=== PATIENT | female | born 1945 | race American Indian/Alaskan Native ===

== ENCOUNTER 2018-11-23 15:22 | Inpatient (IN) ==
--- NOTE | 2018-11-23 15:59 | Emergency Department Note ---
Weakness HPI - General Chief complaint: Weakness Stated complaint: fatigue, low H&H Time Seen by Provider: 11/23/18 15:32 Source: patient, EMS Mode of arrival: ambulatory Limitations: no limitations - History of Present Illness HPI Narrative: Recent episode of generalized weakness, history of right breast CA was seen in the office today and referred to the ED secondary to low blood pressure. Blood pressure was noted be 80 systolic in the office of. Now 125 in triage. She states she generally feels weak, notably a blood panel today revealed a hemo globin of 5.8. Most recently on November 02 her hemoglobin was 9.8. She does tell me that she been weak and tired ever since Wednesday. She thought it would get better. She does remember about of diarrhea on Wednesday where she had 2 or 3 loose stools but then that seemed to resolve it. Her stools have been dark ever since she has been iron which has been for quite some time. Does have a history of GI bleed in the past, she's had several colonoscopies as well as EGDs and they haven't been able to locate a source of the bleeding. She does take aspirin 81 mg a day. She also does recall that she had Hemoccult testing done on outpatient basis which was positive on at least one occasion. Had a tra nsfusion 2 months ago and her post transfusion hemoglobin was 9.8. In August her hemoglobin was 11.3. She denies chest pain, history of coronary disease, status post open heart surgery 18 years ago. She also had mitral valve repair at that time. MD Complaint: generalized weakness - Related Data Home Medications Medication Instructions Recorded Confirmed aspirin 81 mg tablet,delayed 81 mg PO QDAY 07/30/16 11/29/17 release blood sugar diagnostic strips See Dose Instructions .ROUTE 07/30/16 11/29/17 .MEDSUPPLY digoxin 250 mcg tablet 125 mcg PO .QAD tab 07/30/16 11/29/17 diltiazem ER 180 mg capsule,24 180 mg PO QPM cap 07/30/16 11/29/17 hr,extended release ferrous sulfate 325 mg (65 mg 325 mg PO BID 07/30/16 11/29/17 iron) tablet furosemide 20 mg tablet 20 mg PO QDAY 07/30/16 11/29/17 losartan 100 mg tablet 100 mg PO QDAY 07/30/16 11/29/17 omega-3 fatty acids 1,000 mg 1,000 mg PO BID cap 07/30/16 11/29/17 capsule rosuvastatin 10 mg tablet 5 mg PO 3XW tab 07/30/16 11/29/17 sotalol 80 mg tablet 80 mg PO BID tab 07/30/16 11/29/17 cefuroxime axetil 250 mg tablet 250 mg PO Q12H 10/20/16 11/29/17 cholecalciferol (vitamin D3) 1,000 1,000 unit PO .QOD cap 10/20/16 11/29/17 unit capsule cyanocobalamin (vit B-12) 1,000 1,000 mcg PO QDAY 10/20/16 11/29/17 mcg tablet gemfibrozil 600 mg tablet 600 mg PO BID 30 Days #60 tab 10/20/16 11/29/17 lactobacillus combination no.8 3 3,000 mmu cells PO QDAY 10/20/16 11/29/17 billion cell capsule magnesium oxide 500 mg tablet 500 mg PO QDAY 10/20/16 11/29/17 multivitamin,zj-xzsg-bhmmxkvf 1 tab PO QDAY 10/20/16 11/29/17 tablet digoxin 250 mcg tablet 250 mcg PO .QAD tab 05/27/17 11/29/17 ascorbic acid (vitamin C) 500 mg 500 mg PO BID tab 11/29/17 11/29/17 tablet glipizide 5 mg tablet 10 mg PO QDAY 11/29/17 11/29/17 metformin 500 mg tablet 1,000 mg PO TID tab 11/29/17 11/29/17 omeprazole 20 mg capsule,delayed 20 mg PO ONCE cap 11/29/17 11/29/17 release Allergies Allergy/AdvReac Type Severity Reaction Status Date / Time codeine Allergy Unknown RESP Verified 11/23/18 15:28 DISTRESS dofetilide [From Tikosyn] Allergy Unknown unknown Verified 11/23/18 15:28 gabapentin Allergy Unknown unknown Verified 11/23/18 15:28 hydrocodone [HYDROCODONE] Allergy Unknown PT NOT Verified 11/23/18 15:28 SURE OF REACTIONS simvastatin Allergy Unknown Verified 11/23/18 15:28 No to Iodine Allergy Unknown Unknown Uncoded 11/29/17 14:39 No to Latex Allergy Unknown Unknown Uncoded 11/29/17 14:39 From LIPITOR AdvReac Unknown JOINT AND Uncoded 11/29/17 14:39 MUSCLE ACHES From TOPROL XL AdvReac Unknown DIZZY AND Uncoded 11/29/17 14:39 SYNCOPE Review of Systems Constitutional: Denies: fever, chills Eyes: Denies: eye pain ENT ED: Denies: ear pain, throat pain, dental pain Cardiovascular: Reports: dyspnea on exertion. 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 IV fluids. Her abdominal exam is benign, no acute tenderness, suspicion for acute perforated ulcer is low. Stool was heme positive. Last hemoglobin November 02 was 9.8. I believe she is slowly bleeding to the point where she is weak at this time. She also takes carvedilol and her hypotension was resolved on admission. We will start her on blood transfusion, packed red blood cells ordered for her. Consult with hospitalist as well as water filterer. At this point she will need to be admitted for GI bleed. Vital Signs Temperature 97.1 F 11/23/18 15:23 Pulse Rate 81 11/23/18 15:23 Respiratory Rate 16 11/23/18 15:23 Blood Pressure 122/56 11/23/18 15:23 Pulse Oximetry (%) 100 11/23/18 15:23 Temperature 97.1 F 11/23/18 15:23 Pulse Rate 81 11/23/18 15:23 Respiratory Rate 16 11/23/18 15:23 Blood Pressure 122/56 11/23/18 15:23 Pulse Oximetry (%) 100 11/23/18 15:23 Weakness - MDM Narrative Medical decision making narrative: Impression his GI bleed. Plan is consult with hospitalist, water filterer. - Lab Data Lab results reviewed: Yes I reviewed the patient's lab results. Result diagrams: 11/23/18 16:12 11/23/18 16:12 Lab Results 11/23/18 11/23/18 Range/Units 16:12 16:15 WBC 7.4 (4.5-11.0) K/mcL RBC 2.22 L (4.00-5.20) M/mcL Hgb 5.8 L* (12.0-15.0) g/dL Hct 18.1 L* (36.0-48.0) % MCV 81.6 (80.0-100.0) fL MCH 26.0 (26.0-34.0) pg MCHC 31.8 (31.0-36.0) g/dL RDW 16.7 H (11.5-14.5) % Plt Count 313 (140-440) K/mcL MPV 7.6 (7.4-10.4) fL Gran % 78.8 H (38.0-78.0) % Lymph % (Auto) 15.2 L (15.5-49.0) % [place] % (Auto) 4.8 (1.0-12.0) % Eos % (Auto) 1.1 (0.0-7.0) % Baso % (Auto) 0.1 (0.0-2.0) % Gran # 5.8 (1.8-8.0) K/mcL Lymph # (Auto) 1.1 L (1.5-4.8) K/mcL [place] # (Auto) 0.4 (0.1-0.9) K/mcL Eos # (Auto) 0.1 (0.0-0.7) K/mcL Baso # (Auto) 0 (0.0-0.3) K/mcL POC PT 14.1 (11.9-14.5) sec POC INR 1.2 (0.9-1.2) Disposition Pt seen by MACHINIST FIRST CLASS/PA only: No Clinical Impression: Gastrointestinal bleeding Disposition: Xfer As Inpt ([facility]) Condition: Fair Referrals: Sandra Leger MD [Primary Care Provider] -
[2018-11-23] MEDS ORDERED: ONDANSETRON 4 MG/2 ML VIAL IV ONE (16:06)
[2018-11-23] MEDS ORDERED: PANTOPRAZOLE 40 MG VIAL IV ONE ×2 (16:06→16:30)
[2018-11-23] MEDS ORDERED: PANTOPRAZOLE 80 MG in 0.9 % SODIUM CHLORIDE 100 ML IV SCH (16:15)
[2018-11-23] MEDS ORDERED: LACTATED RINGERS 1,000 ML IV SCH (16:15)
[2018-11-23] MEDS ORDERED: 0.9 % SODIUM CHLORIDE 250 ML IV SCH ×2 (16:15→18:47)
[2018-11-23] MEDS ORDERED: ESOMEPRAZOLE 80 MG in 0.9 % SODIUM CHLORIDE 50 ML IV SCH (16:30)
[2018-11-23 16:32] LABS: POC INR 1.2 (0.9-1.2); POC Pro Time 14.1 sec (11.9-14.5)
[2018-11-23 16:43] LABS: Basophils # (Auto) 0 K/mcL (0.0-0.3); Basophils % (Auto) 0.1 % (0.0-2.0); Eosinophils # (Auto) 0.1 K/mcL (0.0-0.7); Eosinophils % (Auto) 1.1 % (0.0-7.0); Granulocytes % (Auto) 78.8 % (38.0-78.0); Hematocrit 18.1 % (36.0-48.0); Hemoglobin 5.8 g/dL (12.0-15.0); Lymphocytes # (Auto) 1.1 K/mcL (1.5-4.8); Lymphocytes % (Auto) 15.2 % (15.5-49.0); Mean Cell Volume 81.6 fL (80.0-100.0); Mean Corpuscular HGB Conc 31.8 g/dL (31.0-36.0); Mean Platelet Volume 7.6 fL (7.4-10.4); Monocytes # (Auto) 0.4 K/mcL (0.1-0.9); Monocytes % (Auto) 4.8 % (1.0-12.0); Platelet Count 313 K/mcL (140-440); RBC 2.22 M/mcL (4.00-5.20); Red Cell Distribution Width 16.7 % (11.5-14.5); WBC 7.4 K/mcL (4.5-11.0)
[2018-11-23 17:00] LABS: ALT/SGPT 7 U/l (0-40); AST/SGOT 12 U/l (0-37); Albumin 4.1 gm/dL (3.2-5.2); Albumin/Globulin Ratio 1.4 (1.0-2.3); Alkaline Phosphatase 52 U/L (39-117); Bilirubin,Total 0.3 mg/dL (0.0-1.0); Blood Urea Nitrogen 49 mg/dl (8-23); Calcium 9.8 mg/dl (8.6-10.4); Carbon Dioxide 22 mmol/L (22-30); Chloride 91 mmol/L (96-108); Glomerular Filtration Rate 64; Glucose 144 mg/dL (70-105); Potassium 4.6 mmol/L (3.3-5.1); Sodium 130 mmol/L (133-145)
--- NOTE | 2018-11-23 18:09 | Internal Med History&Physical ---
Medical - H&P: HPI Patient information: Note initiated : 11/23/18 at 6:04 pm Service Date, if different from initiated Date: [] Patient: Shahnaz Rutledge a 73 y/o F admitted on for fatigue, low H&H. Chief Complaint: [] History of present illness: Ms. Rutledge is a 73 year old F with multiple medical issues, history of GI bleed and diagnosed presents to the emergency room after being sent here from the [facility] for evaluation of fatigue, hypertension and low hemoglobin. The patient had presented to the clinic for her routine blood work for a clinic appointment next week. It was noted that her hemoglobin was low at that appointment I believe 5.8, her blood pressure was 80 systolic and therefore she was sent here to the emergency room for urgent evaluation. The patient notes that she has been feeling tired and fatigued for the last 4 days. She denies any other complaints, she has intermittent abdominal pain which is not able to describe well. The patient denies any headache, denies any changes in vision, has been dizzy intermittently over the last few days, denies any difficulty in swallowing chest pain palpitations acute abdominal pain nausea vomiting diarrhea. She admits to having chronically dark stools as she is on iron supplements she also notes that her occult studies are always positive. The patient has had blood transfusions in the past for a low hemoglobin her last transfusion I believe was last month. The patient notes that she has been worked up in the past for her upper GI bleed. She describes a colonoscopy, endoscopy x2, endoscopy that went more inside which I believe most of been a push enteroscopy, as well as a pill cam, and they were unable to find any source of bleed She is very apprehensive about undergoing the procedure again. 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) Colon polyposis (Chronic) Mitral regurgitation (Chronic) Atrial fibrillation (Chronic) Type 2 diabetes mellitus (Chronic) Congestive heart failure (Chronic) Hyperlipidemia (Chronic) Abnormal mammogram (Chronic) Osteopenia (Chronic) History of endocarditis (Chronic) Eustachian tube dysfunction (Chronic) Benign essential hypertension (Chronic) Acute and subacute endocarditis, unspecified (Chronic) Carcinoma of female breast (Chronic) Anemia (Chronic) Cardiac pacemaker in situ (Chronic) Lymphocytopenia (Chronic) Chest pain (Chronic) Cardiac arrhythmia (Chronic) Surgical history: Past Surgical History History of breast biopsy (Chronic 03/14/03) History of cardiac radiofrequency ablation (Chronic 02/14/02) History of colonoscopy (Chronic 04/25/12) History of local excision of skin lesion (Chronic 10/21/09) History of lumpectomy (Chronic 04/02/03) History of mitral valve repair (Chronic 02/14/02) Status post laser cataract surgery (Chronic 06/15/14) Status post placement of cardiac pacemaker (Chronic 02/21/07) Status post tendon repair (Chronic 10/09/99) Family history: reviewed and not pertinent Medical - H&P: Meds Home Medications Medication Instructions Recorded Confirmed Type aspirin 81 mg tablet,delayed 81 mg PO QDAY 07/30/16 11/23/18 History release blood sugar diagnostic strips See Dose Instructions .ROUTE 07/30/16 11/29/17 History .MEDSUPPLY digoxin 250 mcg tablet 125 mcg PO .QAD tab 07/30/16 11/23/18 History diltiazem ER 180 mg capsule,24 180 mg PO QPM cap 07/30/16 11/23/18 History hr,extended release ferrous sulfate 325 mg (65 mg 325 mg PO BID 07/30/16 11/23/18 History iron) tablet furosemide 20 mg tablet 20 mg PO QDAY 07/30/16 11/23/18 History losartan 100 mg tablet 100 mg PO QDAY 07/30/16 11/23/18 History omega-3 fatty acids 1,000 mg 1,000 mg PO BID cap 07/30/16 11/23/18 History capsule rosuvastatin 10 mg tablet 5 mg PO 3XW tab 07/30/16 11/23/18 History cefuroxime axetil 250 mg tablet 250 mg PO Q12H 10/20/16 11/23/18 History cholecalciferol (vitamin D3) 1,000 1,000 unit PO .QOD cap 10/20/16 11/23/18 History unit capsule cyanocobalamin (vit B-12) 1,000 1,000 mcg PO QDAY 10/20/16 11/23/18 History mcg tablet gemfibrozil 600 mg tablet 600 mg PO BID 30 Days #60 tab 10/20/16 11/23/18 History lactobacillus combination no.8 3 3,000 mmu cells PO QDAY 10/20/16 11/29/17 History billion cell capsule magnesium oxide 500 mg tablet 500 mg PO QDAY 10/20/16 11/23/18 History multivitamin,er-xgbo-fwfcowld 1 tab PO QDAY 10/20/16 11/23/18 History tablet digoxin 250 mcg tablet 250 mcg PO .QAD tab 05/27/17 11/23/18 History ascorbic acid (vitamin C) 500 mg 500 mg PO BID tab 11/29/17 11/23/18 History tablet metformin 500 mg tablet 500 mg PO TID tab 11/29/17 11/23/18 History omeprazole 20 mg capsule,delayed 20 mg PO ONCE cap 11/29/17 11/29/17 History release Carvedilol [Coreg] 6.25 mg PO BID 11/23/18 11/23/18 History Metoprolol Tartrate [Lopressor] 25 mg PO BID 11/23/18 11/23/18 History Allergies Allergy/AdvReac Type Severity Reaction Status Date / Time codeine Allergy Unknown RESP Verified 11/23/18 15:28 DISTRESS dofetilide [From Tikosyn] Allergy Unknown unknown Verified 11/23/18 15:28 gabapentin Allergy Unknown unknown Verified 11/23/18 15:28 hydrocodone [HYDROCODONE] Allergy Unknown PT NOT Verified 11/23/18 15:28 SURE OF REACTIONS simvastatin Allergy Unknown Verified 11/23/18 15:28 No to Iodine Allergy Unknown Unknown Uncoded 11/29/17 14:39 No to Latex Allergy Unknown Unknown Uncoded 11/29/17 14:39 From LIPITOR AdvReac Unknown JOINT AND Uncoded 11/29/17 14:39 MUSCLE ACHES From TOPROL XL AdvReac Unknown DIZZY AND Uncoded 11/29/17 14:39 SYNCOPE Medical - H&P: Exam - Constitutional Vitals: Temp Pulse Resp BP Pulse Ox 97.1 F 81 16 122/56 100 11/23/18 15:23 11/23/18 15:23 11/23/18 15:23 11/23/18 15:23 11/23/18 15:23 Exam: GENERAL: The patient is a well-developed, well-nourished in no apparent distress. Is alert and oriented x3. VITAL SIGNS: Reviewed and as noted elsewhere. HEENT: Head is normocephalic and atraumatic. Extraocular muscles are intact. Pupils are equal, round, and reactive to light. Nares appeared normal. Mouth appears any without lesions. Mucous membranes are moist. NECK: Normal to inspection, Supple, No lymphadenopathy or thyromegaly. LUNGS: Air entry equal on both sides, no wheezing, crackles or rhonchi noted. No accessory muscles of respiration HEART: Regular rate, irregular rhythm, systolic murmur mitral region. ABDOMEN: Soft, nontender, and nondistended. Positive bowel sounds. No hepatosplenomegaly was noted. EXTREMITIES: No cyanosis, clubbing, rash, lesions or edema. NEUROLOGIC: Cranial nerves II through XII are grossly intact. Motor and Sensory System Grossly Intact PSYCHIATRIC: Normal affect, Normal Mood. Appropriate Behavior. SKIN: No ulceration or wounds noted, No jaundice, No rash noted. Medical - H&P: Reslt - Labs CBC & Chem 7: 11/23/18 16:12 11/23/18 16:12 Labs: Short CBC 11/23/18 Range/Units 16:12 WBC 7.4 (4.5-11.0) K/mcL Hgb 5.8 L* (12.0-15.0) g/dL Hct 18.1 L* (36.0-48.0) % Plt Count 313 (140-440) K/mcL BMP 11/23/18 16:12 Sodium 130 L Potassium 4.6 Chloride 91 L Carbon Dioxide 22 BUN 49 H Creatinine 0.9 Glucose 144 H Calcium 9.8 Liver Function 11/23/18 Range/Units 16:12 Total Bilirubin 0.3 (0.0-1.0) mg/dL AST 12 (0-37) U/l ALT 7 (0-40) U/l Alkaline Phosphatase 52 (39-117) U/L Albumin 4.1 (3.2-5.2) gm/dL Medical - H&P: A/P - Narrative A/P Narrative: A/P Acute Upper GI bleed, -Likeliy upper gi source, on ASA 81 for CVA prophylaxis, h/o AFib, does nto take PPI (omeprazole made her stomach worse? ) -GI consulted from ER, -pt Presently hemodyamically stable, but low bp on presentation is concerning, -elevated bun also is concerning -Monitor on PCU status. Acute blood loss Anemia -Transfuse 2 units, trend Hb Atrial fibrillation -On ASA, not on anticoagulation -follows with Dr Krishnamurthy, at [facility] -on multiple meds for rate control, cardizem? coreg? diltazem? will hold for now, HTN -on multiple BP meds -hold for now h/o CA breast -Right side, s/p mastectomy, LN dissection HLD S/p MItral valve repair DM not on insulin -hold oral meds, ssi insulin for glucose control Full code SCD NPO MN, Social History - Social History marital status: - Tobacco smoking status: Former smoker - Alcohol alcohol intake frequency: does not drink
[2018-11-23] MEDS ORDERED: NALOXONE HCL 0.4 MG/ML VIAL IV PRN (18:47)
[2018-11-23] MEDS ORDERED: ONDANSETRON 4 MG/2 ML VIAL IV PRN (18:47)
[2018-11-23] MEDS ORDERED: DEXTROSE 50% 50 ML VIAL IV PRN (18:47)
[2018-11-23] MEDS ORDERED: DEXTROSE 31 GM ORAL.SUSP PO PRN (18:47)
[2018-11-23] MEDS: 0.9 % SODIUM CHLORIDE 250 ML IV SCH (19:00)
[2018-11-23] MEDS: LACTATED RINGERS 1,000 ML IV SCH (21:42)
[2018-11-23] MEDS: GEMFIBROZIL 600 MG TABLET PO SCH (21:44)
[2018-11-23] MEDS: 0.9 % SODIUM CHLORIDE 10 ML SYRINGE IV SCH (21:44)
[2018-11-23] MEDS: INSULIN LISPRO 1 UNIT/0.01 ML UNIT SQ SCH ×2 (21:44→21:57)
[2018-11-24] MEDS ORDERED: PANTOPRAZOLE 40 MG VIAL IV ONE (02:29)
[2018-11-24 02:43] LABS: Hematocrit 23.2 % (36.0-48.0); Hemoglobin 7.5 g/dL (12.0-15.0)
[2018-11-24] MEDS ORDERED: 0.9 % SODIUM CHLORIDE 250 ML IV SCH (03:45)
[2018-11-24] MEDS: 0.9 % SODIUM CHLORIDE 250 ML IV SCH (04:00)
[2018-11-24] MEDS: PANTOPRAZOLE 80 MG in 0.9 % SODIUM CHLORIDE 100 ML IV SCH ×2 (04:22→15:12)
[2018-11-24] MEDS: 0.9 % SODIUM CHLORIDE 10 ML SYRINGE IV SCH ×2 (05:36→13:34)
[2018-11-24] MEDS: INSULIN LISPRO 1 UNIT/0.01 ML UNIT SQ SCH ×4 (07:16→20:36)
[2018-11-24] MEDS ORDERED: DEXTROSE 5%-LR 1,000 ML IV SCH ×2 (08:40→15:14)
[2018-11-24] MEDS: LACTATED RINGERS 1,000 ML IV SCH (08:54)
--- NOTE | 2018-11-24 09:44 | Internal Med Progress Note ---
Medical - PN: Subj Patient information: Note initiated : 11/24/18 at 9:42 am Service Date, if different from initiated Date: [] Patient: Shahnaz Rutledge a 73 y/o F admitted on 11/23/18 for Fatigue, Low H&H. Chief Complaint: [] Interval history: Ms. Rutledge is a 73 year old F with multiple medical issues, history of GI bleed and diagnosed presents to the emergency room after being sent here from the [facility] for evaluation of fatigue, hypertension and low hemoglobin. The patient had presented to the clinic for her routine blood work for a clinic appointment next week. It was noted that her hemoglobin was low at that appointment I believe 5.8, her blood pressure was 80 systolic and therefore she was sent here to the emergency room for urgent evaluation. The patient notes that she has been feeling tired and fatigued for the last 4 days. She denies any other complaints, she has intermittent abdominal pain which is not able to describe well. The patient denies any headache, denies any changes in vision, has been dizzy intermittently over the last few days, denies any difficulty in swallowing chest pain palpitations acute abdominal pain nausea vomiting diarrhea. She admits to having chronically dark stools as she is on iron supplements she also notes that her occult studies are always positive. The patient has had blood transfusions in the past for a low hemoglobin her last transfusion I believe was last month. The patient notes that she has been worked up in the past for her upper GI bleed. She describes a colonoscopy, endoscopy x2, endoscopy that went more inside which I believe most of been a push enteroscopy, as well as a pill cam, and they were unable to find any source of bleed She is very apprehensive about undergoing the procedure again. 11/24 Patient seen and examined, no acute overnight events. Blood pressure stable has received 3 units of blood. Hemoglobin is rising appropriately. Patient remains on IV PPI GI to evaluate patient plan for endoscopy later today. Patient remains n.p.o. Pertinent ROS: Denies headache, dizziness Denies chest pain, palpitations Denies cough or shortness of breath Denies abdominal pain, nausea or vomiting. - Constitutional Vitals: Vital Signs Temp Pulse Resp BP Pulse Ox 98 F 64 17 136/70 99 11/24/18 06:57 11/24/18 09:00 11/24/18 09:00 11/24/18 09:00 11/24/18 09:00 Period Temp Pulse Resp BP Sys/Wade Pulse Ox Last 24 Hr 97.1 F-99.1 F 42-126 14-26 108-177/47-98 95-100 Intake and Output 11/23/18 11/24/18 11/24/18 21:59 05:59 13:59 Intake Total 7948 263 2458 Output Total 350 1400 450 Balance 719 -910 796 Weight 104 lb 11.2 oz Intake & Output: Intake & Output 11/23/18 11/24/18 11/24/18 21:59 05:59 13:59 Intake Total 7997 582 0331 Output Total 350 1400 450 Balance 719 -910 796 Weight 104 lb 11.2 oz Intake: IV 219 100 896 Sodium Chloride 0.9% 250 ml @ 100 20 mls/hr IV .[id number] [facility] Rx#: [id number] Lactated Ringers 1,000 ml @ 75 119 823 mls/hr IV .[id number] [facility] Rx#: [id number] Protonix 80 mg In Sodium 100 Chloride 0.9% 100 ml @ 8 MG/HR 10 mls/hr IV Q10H [facility] Rx#: [id number] Oral 200 390 Blood Product 650 350 Output: Void Amount 350 1400 450 Other: Urine Appearance Clear Urine Color Bright Yellow Urine Odor Normal Exam: Constitutional; Afebrile, cooperative, alert, not in distress. Respiratory system: Air Entry equal on both sides, No crackles or wheezing, no rhonchi. CVS- Rate rhythm regular, S1,S2 heard, no gallop, no rub. Abdomen- Soft nontender abdomen, no organomegaly, no tenderness, no guarding or rigidity, ORTHOPEDIC DESIGNER- AOOx3, moving all extremities, no gross focal deficit noted. Medical - PN: Obj Da - Labs CBC & Chem 7: 11/24/18 02:11 11/23/18 16:12 Labs: Abnormal Lab Results 11/24/18 11/23/18 11/23/18 02:11 16:12 16:12 RBC 2.22 L Hgb 7.5 L 5.8 L* Hct 23.2 L 18.1 L* RDW 16.7 H Gran % 78.8 H Lymph % (Auto) 15.2 L Lymph # (Auto) 1.1 L Sodium 130 L Chloride 91 L Anion Gap 17.0 H BUN 49 H Glucose 144 H Meds: Medications Dextrose (Dextrose 50%) 0 ml IV UD PRN PRN Reason: Hypoglycemia Diagnostic Test (Pha) (Accu-Chek) 1 each FS ACHS [facility] Last Admin: 11/24/18 07:16 Dose: 1 each Documented by: Gemfibrozil (Lopid) 600 mg PO BID [facility] Last Admin: 11/23/18 21:44 Dose: 600 mg Documented by: Glucose (Insta-Glucose) 15 gm PO PRN PRN PRN Reason: Hypoglycemia Pantoprazole Sodium 80 mg/ (Sodium Chloride) 100 mls @ 10 mls/hr IV Q10H [facility] Last Admin: 11/24/18 04:22 Dose: 8 mg/hr, 10 mls/hr Documented by: Sodium Chloride (Sodium Chloride 0.9%) 250 mls @ 20 mls/hr IV .[id number] [facility] Stop: 11/24/18 16:14 Last Admin: 11/24/18 04:28 Dose: Not Given Documented by: Dextrose/Lactated Ringer's (Dextrose 5%-Lactated Ringers) 1,000 mls @ 50 mls/hr IV .Q20H [facility] Last Admin: 11/24/18 08:40 Dose: 50 mls/hr Documented by: Insulin Human Lispro (Humalog) 0 unit SQ [facility]; Protocol Last Admin: 11/24/18 07:16 Dose: Not Given Documented by: Naloxone HCl (Narcan) 0.1 mg IV Q2MIN PRN PRN Reason: Opiate Reversal Ondansetron HCl (Zofran) 4 mg IV Q4-6HP PRN PRN Reason: Nausea And Vomiting Sodium Chloride (Saline Flush) 10 ml IV Q8 [facility] Last Admin: 11/24/18 05:36 Dose: Not Given Documented by: Medical - PN: A/P - Time Spent With Patient Total time spent is greater than 50% in coordination of care (as documented) at patient's floor/unit and/or counseling patient: - Narrative A/P Narrative: A/P Acute Upper GI bleed, -Likeliy upper gi source, on ASA 81 for CVA prophylaxis, h/o AFib, does nto take PPI (omeprazole made her stomach worse? ) -GI consulted from ER, -pt Presently hemodynamically stable, but low bp on presentation is chio rning, -elevated bun also is concerning -Monitor on PCU status. -EGD today , on IV PPI Acute blood loss Anemia -Transfused 3 units, trend Hb Atrial fibrillation -On ASA, not on anticoagulation -follows with Dr Krishnamurthy, at [facility] -on multiple meds for rate control, cardizem? coreg? diltazem? will hold for now, resume post procedure once stability ensured. HTN -on multiple BP meds -hold for now h/o CA breast -Right side, s/p mastectomy, LN dissection HLD S/p MItral valve repair DM not on insulin -hold oral meds, ssi insulin for glucose control Full code SCD NPO [place], Medical - PN: Qual - VTE Deep Vein Thrombosis/Pulmonary Embolism Present on Admission: No
[2018-11-24] MEDS: GEMFIBROZIL 600 MG TABLET PO SCH ×2 (10:27→20:48)
[2018-11-24] MEDS ORDERED: PROPOFOL 200 MG/20 ML VIAL IV SCH ×2 (11:00→15:14)
[2018-11-24] MEDS ORDERED: MIDAZOLAM 2 MG/2 ML VIAL IV SCH ×2 (11:00→15:14)
[2018-11-24] MEDS ORDERED: GLYCOPYRROLATE 0.2 MG/ML VIAL IV SCH ×2 (11:00→15:14)
[2018-11-24 11:26] LABS: Basophils # (Auto) 0 K/mcL (0.0-0.3); Basophils % (Auto) 0.4 % (0.0-2.0); Eosinophils # (Auto) 0.1 K/mcL (0.0-0.7); Eosinophils % (Auto) 2.1 % (0.0-7.0); Hematocrit 27.3 % (36.0-48.0); Hemoglobin 8.9 g/dL (12.0-15.0); Lymphocytes # (Auto) 1.2 K/mcL (1.5-4.8); Lymphocytes % (Auto) 19.8 % (15.5-49.0); Mean Cell Volume 84.9 fL (80.0-100.0); Mean Corpuscular HGB Conc 32.8 g/dL (31.0-36.0); Mean Platelet Volume 7.4 fL (7.4-10.4); Monocytes # (Auto) 0.4 K/mcL (0.1-0.9); Monocytes % (Auto) 6.7 % (1.0-12.0); Platelet Count 247 K/mcL (140-440); RBC 3.21 M/mcL (4.00-5.20); Red Cell Distribution Width 15.4 % (11.5-14.5); WBC 6.1 K/mcL (4.5-11.0)
[2018-11-24 11:32] LABS: Digoxin 1.7 ng/mL
[2018-11-24 12:19] LABS: ALT/SGPT 6 U/l (0-40); AST/SGOT 12 U/l (0-37); Albumin 3.5 gm/dL (3.2-5.2); Albumin/Globulin Ratio 1.3 (1.0-2.3); Alkaline Phosphatase 39 U/L (39-117); Bilirubin,Direct < 0.2 mg/dL (0.0-0.3); Bilirubin,Total 0.5 mg/dL (0.0-1.0); Blood Urea Nitrogen 40 mg/dl (8-23); Calcium 8.6 mg/dl (8.6-10.4); Carbon Dioxide 22 mmol/L (22-30); Chloride 99 mmol/L (96-108); Globulin 2.8 gm/dL (2.2-3.7); Glomerular Filtration Rate 64; Glucose 91 mg/dL (70-105); Lactate Dehydrogenase 126 U/L (94-250); Magnesium 1.8 mg/dL (1.6-2.5); Potassium 4.4 mmol/L (3.3-5.1); Sodium 136 mmol/L (133-145); Triglycerides 174 mg/dl (<150); Uric Acid 5.3 mg/dL (2.5-8.0)
[2018-11-24] MEDS ORDERED: MIDAZOLAM 2 MG/2 ML VIAL ONE (13:10)
[2018-11-24] MEDS ORDERED: PROPOFOL 20 ML IV ONE (13:11)
[2018-11-24] MEDS ORDERED: EPINEPHrine 1 MG/ML AMPUL IJ ONE ×2 (14:20→14:32)
[2018-11-24] MEDS ORDERED: EPINEPHrine 1 MG/ML AMPUL ONE (14:46)
[2018-11-24] MEDS ORDERED: SODIUM CHLORIDE 3 % 500 ML IV SCH ×2 (15:00→15:14)
--- NOTE | 2018-11-24 15:08 | Operative Note ---
DATE OF OPERATION: 11/24/2018 PREPROCEDURE DIAGNOSIS: Upper GI bleed. POSTPROCEDURE DIAGNOSES: 1. Upper GI bleed secondary to a Dieulafoy's lesion versus tiny angiodysplasia in the duodenal bulb, posterior wall. 2. Stricture EG junction. PROCEDURE: Esophagogastroduodenoscopy with biopsy and control of bleeding. INSTRUMENT USED: Olympus MONICA [id number] endoscope. SPECIMENS OBTAINED: Biopsies from antrum for histopathology and CLOtest. CLOtest RESULTS: Negative INDICATIONS: The patient is a 73-year-old lady whose primary care physician is Dr. Leger. The patient did present to [facility] Emergency Department complaining of weakness for about 3 days. Stool was dark because of iron, but was not dark black and sticky such that it would suggest melena. Hemoglobin was low at 5.8. I believe she received 3 units of blood and hemoglobin increased to 8.9. BUN was 49, creatinine was 0.9. The patient may have been a little hypotensive initially but with some fluids promptly was resuscitated and had a reasonable blood pressure and pulse. Endoscopy was indicated. The patient thinks about a year or so ago she had an EGD and a colonoscopy and a PillCam study. No definite site was found for her blood loss. She has had anemia from time to time presumed to be from blood loss. Repeat EGD and treatment of bleeding site is indicated. INFORMED CONSENT: Time of informed consent was 14:07. The procedure was reviewed with the patient. The patient had no further questions and accepts the risks and benefits thereof. One of the risks that were discussed included . Additional risks that were also discussed included bleeding, reaction to medication, possible perforation and possible need for surgery. IV MEDICATIONS USED: Versed 2 mg and propofol 100 mg. FINDINGS: ESOPHAGUS: Proximal, mid and distal esophagus normal. EG JUNCTION: This was around 37 cm. There was a mild stricture noted. No dilation was accomplished at this time. STOMACH: Cardia, fundus and body, and antrum normal. Biopsies were taken from the antrum for histopathology and rapid urease testing. PYLORUS: This appeared normal; however, there was some blood seen through the pylorus or coming out through the pylorus. There was a fair amount of blood in the duodenal bulb. Hypertonic saline/epinephrine mixture was mixed up ready for use. The area was washed thoroughly. I expected to find an ulcer. I could not find an ulcer. There was a tiny bleeding site that I could not determine if it was an angiodysplasia. This may have been a tiny angiodysplasia or possibly a Dieulafoy's lesion. The one major and possible minor bleeding sites were treated. No further bleeding was noted. I used about 2 mL of hypertonic saline/epinephrine mixture. The descending limb of the duodenum appeared normal. RECOMMENDATIONS: Liquid diet can be allowed. I would recommend a follow-up EGD in about 3 months. In 2 months, we should check the stool for occult blood. She should continue her iron supplements until the iron and ferritin levels are at a good level. Hopefully, we have found a bleeding site. If, however, this site is taking care of, but she still has recurrent bleeding she may need to see Dr. Stephens in [place]. He may be able to evaluate the entire small bowel with a single balloon enteroscope, or deep enteroscope. Once again, I have no objection to the patient starting a liquid diet. If she seems hemodynamically stable and there is no further bleeding, and she tolerates diet well, there is probably no reason that she would need to stay in the hospital more than overnight. SEDATION TIME: 14:13 to 14:50. Please refer to the preprocedure nurse's notes, procedure flowsheet, procedure record, and post-procedure assessment for details of the sedation including the pre-, intra-, and post-service work. [email or web address] Job ID: [id number] Doc ID: [id number] Andrew Leger MD [facility] CENTERAdrianne
[2018-11-24] MEDS ORDERED: DEXTROSE 50% 50 ML VIAL IV PRN (15:14)
[2018-11-24] MEDS ORDERED: DEXTROSE 31 GM ORAL.SUSP PO PRN (15:14)
[2018-11-24] MEDS ORDERED: NALOXONE HCL 0.4 MG/ML VIAL IV PRN (15:14)
[2018-11-24] MEDS ORDERED: ONDANSETRON 4 MG/2 ML VIAL IV PRN (15:14)
[2018-11-24] MEDS ORDERED: FUROSEMIDE 20 MG TABLET PO SCH (15:14)
[2018-11-24] MEDS: FERROUS SULFATE 325 MG TABLET PO SCH (20:48)
[2018-11-24] MEDS: ASCORBIC ACID 500 MG TABLET PO SCH (20:48)
[2018-11-24] MEDS: IRON POLYSACCHARIDE COMPLEX 150 MG CAPSULE PO SCH (20:48)
[2018-11-24] MEDS ORDERED: DILTIAZEM 180 MG CAP.XL.24H PO SCH (21:00)
[2018-11-24] MEDS ORDERED: CARVEDILOL 6.25 MG TABLET PO SCH (21:00)
[2018-11-25] MEDS: 0.9 % SODIUM CHLORIDE 10 ML SYRINGE IV SCH ×2 (04:05→09:14)
[2018-11-25 05:08] LABS: Basophils # (Auto) 0 K/mcL (0.0-0.3); Basophils % (Auto) 0.2 % (0.0-2.0); Eosinophils # (Auto) 0.2 K/mcL (0.0-0.7); Eosinophils % (Auto) 2.8 % (0.0-7.0); Granulocytes % (Auto) 73.1 % (38.0-78.0); Hematocrit 25.5 % (36.0-48.0); Hemoglobin 8.4 g/dL (12.0-15.0); Lymphocytes # (Auto) 1.2 K/mcL (1.5-4.8); Mean Cell Volume 86.6 fL (80.0-100.0); Mean Corpuscular HGB Conc 33.1 g/dL (31.0-36.0); Mean Platelet Volume 7.2 fL (7.4-10.4); Monocytes # (Auto) 0.4 K/mcL (0.1-0.9); Monocytes % (Auto) 5.9 % (1.0-12.0); Platelet Count 252 K/mcL (140-440); RBC 2.95 M/mcL (4.00-5.20); Red Cell Distribution Width 15.7 % (11.5-14.5); WBC 6.8 K/mcL (4.5-11.0)
[2018-11-25 05:22] LABS: ALT/SGPT 6 U/l (0-40); AST/SGOT 13 U/l (0-37); Albumin 3.5 gm/dL (3.2-5.2); Albumin/Globulin Ratio 1.3 (1.0-2.3); Alkaline Phosphatase 38 U/L (39-117); Bilirubin,Direct < 0.2 mg/dL (0.0-0.3); Bilirubin,Total 0.4 mg/dL (0.0-1.0); Blood Urea Nitrogen 29 mg/dl (8-23); Calcium 8.2 mg/dl (8.6-10.4); Carbon Dioxide 25 mmol/L (22-30); Chloride 97 mmol/L (96-108); Globulin 2.7 gm/dL (2.2-3.7); Glomerular Filtration Rate 74; Glucose 92 mg/dL (70-105); Lactate Dehydrogenase 115 U/L (94-250); Magnesium 1.6 mg/dL (1.6-2.5); Potassium 3.7 mmol/L (3.3-5.1); Sodium 134 mmol/L (133-145); Triglycerides 142 mg/dl (<150); Uric Acid 5.7 mg/dL (2.5-8.0)
[2018-11-25] MEDS ORDERED: PANTOPRAZOLE 40 MG TABLET PO SCH ×2 (07:30)
[2018-11-25] MEDS ORDERED: CARVEDILOL 6.25 MG TABLET PO SCH (08:00)
[2018-11-25] MEDS ORDERED: FUROSEMIDE 40 MG TABLET PO SCH (09:00)
[2018-11-25] MEDS ORDERED: CYANOCOBALAMIN (VITAMIN B-12) 500 MCG TABLET PO SCH (09:00)
[2018-11-25] MEDS ORDERED: MAGNESIUM OXIDE 400 MG TABLET PO SCH (09:00)
[2018-11-25] MEDS ORDERED: LOSARTAN 50 MG TABLET PO SCH (09:00)
[2018-11-25] MEDS ORDERED: VITAMIN D3 1,000 UNIT TABLET PO SCH (09:00)
[2018-11-25] MEDS ORDERED: LACTOBACILLUS 1 CAPSULE PO SCH (09:00)
[2018-11-25] MEDS: GEMFIBROZIL 600 MG TABLET PO SCH (09:13)
[2018-11-25] MEDS: FERROUS SULFATE 325 MG TABLET PO SCH (09:13)
[2018-11-25] MEDS: IRON POLYSACCHARIDE COMPLEX 150 MG CAPSULE PO SCH (09:14)
[2018-11-25] MEDS: INSULIN LISPRO 1 UNIT/0.01 ML UNIT SQ SCH (09:14)
[2018-11-25] MEDS: ASCORBIC ACID 500 MG TABLET PO SCH (09:14)
--- NOTE | 2018-11-25 10:30 | Discharge Summary ---
Medical - DS: Prov Patient information: Note initiated : 11/25/18 at 10:28 am Service Date, if different from initiated Date: [] Patient: Shahnaz Rutledge 73 y/o F admitted on 11/23/18 for Fatigue, Low H&H. Chief Complaint: [] Date of admission: 11/23/18 18:21 Discharge date: 11/25/18 Primary care physician: Sandra Leger Consults: 11/23/18 Consult to Physician [CONS] Stat Comment: Consulting Provider: Andrew Chaves Reason For Exam: Physician to Consult Consult to Physician [CONS] Stat Comment: Consulting Provider: Jannet El Reason For Exam: Physician to Consult Discharging clinician: Jannet El Medical - DS: Meds - Discharge Medications Prescriptions: Pantoprazole [Protonix] 40 mg PO QAMAC #90 tab Active and Home Medications: Home Medications aspirin 81 mg tablet,delayed release 81 mg PO QDAY 07/30/16 [History Confirmed 11/23/18 Last Taken Unknown] blood sugar diagnostic strips See Dose Instructions .ROUTE QID 07/30/16 [History Confirmed 11/24/18 Last Taken Unknown] digoxin 250 mcg tablet 125 mcg PO .QAD tab 07/30/16 [History Confirmed 11/23/18 Last Taken Unknown] diltiazem ER 180 mg capsule,24 hr,extended release 180 mg PO QPM cap 07/30/16 [History Confirmed 11/23/18 Last Taken Unknown] ferrous sulfate 325 mg (65 mg iron) tablet 325 mg PO BID 07/30/16 [History Con firmed 11/23/18 Last Taken Unknown] furosemide 20 mg tablet 20 mg PO UD 07/30/16 [History Confirmed 11/24/18 Last Taken Unknown] losartan 100 mg tablet 100 mg PO QDAY 07/30/16 [History Confirmed 11/23/18 Last Taken Unknown] omega-3 fatty acids 1,000 mg capsule 1,000 mg PO BID cap 07/30/16 [History Confirmed 11/23/18 Last Taken Unknown] rosuvastatin 10 mg tablet 5 mg PO 3XW tab 07/30/16 [History Confirmed 11/23/18 Last Taken Unknown] cefuroxime axetil 250 mg tablet 250 mg PO Q12H 10/20/16 [History Confirmed 11/23/18 Last Taken Unknown] cholecalciferol (vitamin D3) 1,000 unit capsule 1,000 unit PO .QOD cap 10/20/16 [History Confirmed 11/23/18 Last Taken Unknown] cyanocobalamin (vit B-12) 1,000 mcg tablet 1,000 mcg PO QDAY 10/20/16 [History Confirmed 11/23/18 Last Taken Unknown] gemfibrozil 600 mg tablet 600 mg PO BID 30 Days #60 tab 10/20/16 [History Confirmed 11/23/18 Last Taken Unknown] lactobacillus combination no.8 3 billion cell capsule 3,000 mmu cells PO QDAY 10/20/16 [History Confirmed 11/24/18 Last Taken Unknown] magnesium oxide 500 mg tablet 500 mg PO QDAY 10/20/16 [History Confirmed 11/23/18 Last Taken Unknown] multivitamin,cy-yidw-tpyyrwgy tablet 1 tab PO QDAY 10/20/16 [History Confirmed 11/23/18 Last Taken Unknown] digoxin 250 mcg tablet 250 mcg PO .QAD tab 05/27/17 [History Confirmed 11/23/18 Last Taken Unknown] ascorbic acid (vitamin C) 500 mg tablet 500 mg PO BID tab 11/29/17 [History Confirmed 11/23/18 Last Taken Unknown] metformin 500 mg tablet 500 mg PO TID tab 11/29/17 [History Confirmed 11/23/18 Last Taken Unknown] Carvedilol [Coreg] 6.25 mg PO BID 11/23/18 [History Confirmed 11/23/18 Last Taken Unknown] Metoprolol Tartrate [Lopressor] 25 mg PO BID 11/23/18 [History Confirmed 11/23/18 Last Taken Unknown] Iron Ps Cmplx/Vit B12/FA [Iferex 150 Forte Capsule] 1 each PO BID 11/24/18 [History Confirmed 11/24/18 Last Taken Unknown] Medical - DS: Hosp Hospital course: Interval history: Ms. Rutledge is a 73 year old F with multiple medical issues, history of GI bleed and diagnosed presents to the emergency room after being sent here from the [facility] [place] for evaluation of fatigue, hypertension and low hemoglobin. The patient had presented to the clinic for her routine blood work for a clinic appointment next week. It was noted that her hemoglobin was low at that appointment I believe 5.8, her blood pressure was 80 systolic and therefore she was sent here to the emergency room for urgent evaluation. The patient notes that she has been feeling tired and fatigued for the last 4 days. She denies any other complaints, she has intermittent abdominal pain which is not able to describe well. The patient denies any headache, denies any changes in vision, has been dizzy intermittently over the last few days, denies any difficulty in swallowing chest pain palpitations acute abdominal pain nausea vomiting diarrhea. She admits to having chronically dark stools as she is on iron supplements she also notes that her occult studies are always positive. The patient has had blood transfusions in the past for a low hemoglobin her last transfusion I believe was last month. The patient notes that she has been worked up in the past for her upper GI bleed. She describes a colonoscopy, endoscopy x2, endoscopy that went more inside which I believe most of been a push enteroscopy, as well as a pill cam, and they were unable to find any source of bleed She is very apprehensive about undergoing the procedure again. 11/24 Patient seen and examined, no acute overnight events. Blood pressure stable has received 3 units of blood. Hemoglobin is rising appropriately. Patient remains on IV PPI GI to evaluate patient plan for endoscopy later today. Patient remains n.p.o. 11/25 Patient seen and examined, no acute overnight events, hemodynamically stable, hemoglobin remained stable. Patient had endoscopy done yesterday which revealed a couple of lesions according to the GI provider, likely bill for his lesion treated by the GI provider cleared for discharge This morning patient was able to tolerate p.o. diet well and is stable for discharge. I have started the patient on pantoprazole as she takes aspirin, I have also advised the patient to continue all her other home medications as prescribed by her previous provider. Discharge diagnosis: acute upper gi bleed - Time Spent with Patient Total time spent providing and/or coordinating discharge services: Greater than 30 minutes Medical - DS: Exam - Constitutional Vitals: Vital Signs Temp Pulse Resp BP Pulse Ox 11/25/18 06:00 132/60 96 11/25/18 05:02 130/86 97 11/25/18 04:01 137/63 98 11/25/18 04:00 20 137/63 97 11/25/18 03:01 138/55 97 11/25/18 02:01 122/55 96 11/25/18 01:01 140/65 98 11/25/18 00:02 141/56 98 11/24/18 23:59 141/56 98 11/24/18 23:25 98 11/24/18 23:02 150/58 99 11/24/18 22:02 143/60 100 11/24/18 21:27 184/69 100 11/24/18 21:23 184/69 100 11/24/18 20:01 158/77 100 11/24/18 19:03 149/85 94 11/24/18 18:02 158/67 97 11/24/18 17:32 169/69 100 11/24/18 16:32 18 155/65 100 11/24/18 16:25 162/66 100 11/24/18 16:01 98 F 154/67 98 11/24/18 15:48 154/67 98 11/24/18 15:32 141/48 100 11/24/18 15:16 156/72 99 11/24/18 15:12 141/68 99 11/24/18 15:09 98.4 F 152/66 100 11/24/18 14:56 63 19 112/56 97 11/24/18 14:40 63 19 108/52 99 11/24/18 14:30 84 18 124/58 100 11/24/18 14:08 16 97 11/24/18 14:06 72 18 159/71 98 11/24/18 13:01 98.6 F 18 159/71 98 11/24/18 11:01 16 159/80 97 Intake and Output 11/24/18 11/25/18 11/25/18 21:59 05:59 13:59 Intake Total 360 1040 Output Total 1100 575 Balance -740 465 Intake: IV 0 Protonix 80 mg In Sodium 0 Chloride 0.9% 100 ml @ 8 MG/HR 10 mls/hr IV Q10H [facility] Rx#: [id number] Oral 360 1040 Output: Void Amount 1100 575 Other: Meal Dinner Percent of Meal Consumed 100% Feeding Ability Independent Urine Appearance Clear Clear Urine Color Straw Light Stefany Weight 106 lb 11.2 oz Additional comments: Constitutional; Afebrile, cooperative, alert, not in distress. Respiratory system: Air Entry equal on both sides, No crackles or wheezing, no rhonchi. CVS- Rate rhythm regular, S1,S2 heard, no gallop, no rub. Abdomen- Soft nontender abdomen, no organomegaly, no tenderness, no guarding or rigidity, SLIDE DEVELOPER- AOOx3, moving all extremities, no gross focal deficit noted. Medical - DS: Data Labs on day of discharge: Labs from last 24 hours 11/25/18 11/25/18 11/24/18 03:40 03:40 07:23 WBC 6.8 RBC 2.95 L Hgb 8.4 L Hct 25.5 L MCV 86.6 MCH 28.7 MCHC 33.1 RDW 15.7 H Plt Count 252 MPV 7.2 L Gran % 73.1 Lymph % (Auto) 18.0 [place] % (Auto) 5.9 Eos % (Auto) 2.8 Baso % (Auto) 0.2 Gran # 5.0 Lymph # (Auto) 1.2 L [place] # (Auto) 0.4 Eos # (Auto) 0.2 Baso # (Auto) 0 Sodium 134 Potassium 3.7 Chloride 97 Carbon Dioxide 25 Anion Gap 12.0 BUN 29 H Creatinine 0.8 GFR Calculation 74 Glucose 92 Uric Acid 5.7 Calcium 8.2 L Phosphorus 3.0 Magnesium 1.6 Total Bilirubin 0.4 Direct Bilirubin < 0.2 GGT 17 AST 13 ALT 6 Alkaline Phosphatase 38 L Lactate Dehydrogenase 115 Total Protein 6.2 Albumin 3.5 Globulin 2.7 Albumin/Globulin Ratio 1.3 Triglycerides 142 Digoxin 1.7 Digoxin Dose Not Reportable Digox Last Dose Time Not Reportable 11/24/18 11/24/18 07:23 07:23 WBC 6.1 RBC 3.21 L Hgb 8.9 L Hct 27.3 L MCV 84.9 MCH 27.9 MCHC 32.8 RDW 15.4 H Plt Count 247 MPV 7.4 Gran % 71.0 Lymph % (Auto) 19.8 [place] % (Auto) 6.7 Eos % (Auto) 2.1 Baso % (Auto) 0.4 Gran # 4.3 Lymph # (Auto) 1.2 L [place] # (Auto) 0.4 Eos # (Auto) 0.1 Baso # (Auto) 0 Sodium 136 Potassium 4.4 Chloride 99 Carbon Dioxide 22 Anion Gap 15.0 BUN 40 H Creatinine 0.9 GFR Calculation 64 Glucose 91 Uric Acid 5.3 Calcium 8.6 Phosphorus 4.0 Magnesium 1.8 Total Bilirubin 0.5 Direct Bilirubin < 0.2 GGT 18 AST 12 ALT 6 Alkaline Phosphatase 39 Lactate Dehydrogenase 126 Total Protein 6.3 Albumin 3.5 Globulin 2.8 Albumin/Globulin Ratio 1.3 Triglycerides 174 H Digoxin Digoxin Dose Digox Last Dose Time Medical - DS: A/P - Patient/Caregiver Discharge Instructions Activity: increase activity as tolerated Diet: Cardiac Additional Instructions: Please take pantoprazole 40 mg once a day take this medication 30 minutes before a meal. Take all the medications prescribed by her regular provider as you have been doing so far, I have made no changes in your medication list. Go to the emergency room if worsening fatigue dizziness or blood in the stools. Follow-up with your primary care provider within a week, make sure provider checks your hemoglobin to document stability. - Follow up Plan Follow up with: Sandra Leger MD [Primary Care Provider] - 12/07/18 11:30 am (Please check in at 11:15 am) Andrew Chaves MD [Physician] - (Dr. Chaves's office will contact you on Wednesday to schedule this appointment.) Disposition: Home, Self-Care Prognosis: Fair Rehab Potential: Fair I certify that the patient requires SNF services: No Overall status at discharge: patient is progressing back to baseline Medical - DS: Qual - VTE Deep Vein Thrombosis/Pulmonary Embolism Present on Admission: No
--- NOTE | 2018-11-25 12:54 | Surgical Pathology Report ---
HISTOLOGY SPECIMEN MICROSCOPIC DIAGNOSIS STOMACH, ANTRUM, BIOPSY: -- MILD CHRONIC GASTRITIS. -- ALCIAN YELLOW STAIN NEGATIVE FOR HELICOBACTER PYLORI TYPE ORGANISMS (ADEQUATE TECHNICAL CONTROL). (ACP:ruth) CLINICAL HISTORY Heartburn; dark stool. PROCEDURAL IMPRESSION (?) H. pylori; esophageal stricture; Dieulafoy's lesion vs. small angiodysplasia. GROSS DESCRIPTION Received in formalin labeled antrum biopsy, are four fragments of stone tissue ranging in size from 0.3 to 0.4 cm. Totally submitted - one cassette. (KGW:adj) Electronically Signed by: Vern Salazar M.D.
== END 2018-11-25 11:43 | disposition home or self-care (01) | DRG 378 ==
LOC: ED 15:22 → ICU 18:20
PROVIDERS: ADMIT Internal Medicine; ATTEND Internal Medicine

== ENCOUNTER 2019-02-05 06:12 | Inpatient (IN) ==
--- NOTE | 2019-02-05 07:06 | Emergency Department Note ---
General Adult HPI - General Chief complaint: Blood Pressure Problem Stated complaint: Worried about vitals Time Seen by Provider: 02/05/19 06:47 Mode of arrival: ambulatory Limitations: no limitations - History of Present Illness HPI Narrative: 73-year-old female presenting to the emergency department ambulatory alert interactive. Concerned that her pulse may be abnormal or she may have low blood pressure. Patient states she is been feeling sick for several weeks at this po int time. Patient also states did not sleep very much last night and feeling fatigued. Onset (ago): week(s) Radiation: non-radiation Severity: moderate Severity scale (1-10): 5 Consistency: constant Improves with: none Worsens with: other (not sleeping well) Associated symptoms: Reports: denies other symptoms Treatments Prior to Arrival: none - Related Data Home Medications Medication Instructions Recorded Confirmed aspirin 81 mg tablet,delayed 81 mg PO QDAY 07/30/16 11/30/18 release blood sugar diagnostic strips See Dose Instructions .ROUTE QID 07/30/16 11/24/18 diltiazem ER 180 mg capsule,24 180 mg PO QPM cap 07/30/16 11/30/18 hr,extended release ferrous sulfate 325 mg (65 mg 325 mg PO BID 07/30/16 11/30/18 iron) tablet losartan 100 mg tablet 100 mg PO QDAY 07/30/16 11/30/18 omega-3 fatty acids 1,000 mg 1,000 mg PO BID cap 07/30/16 11/30/18 capsule rosuvastatin 10 mg tablet 5 mg PO 3XW tab 07/30/16 11/30/18 cefuroxime axetil 250 mg tablet 250 mg PO Q12H 10/20/16 11/30/18 cholecalciferol (vitamin D3) 1,000 1,000 unit PO .QOD cap 10/20/16 11/30/18 unit capsule cyanocobalamin (vit B-12) 1,000 1,000 mcg PO QDAY 10/20/16 11/30/18 mcg tablet gemfibrozil 600 mg tablet 600 mg PO BID 30 Days #60 tab 10/20/16 11/30/18 magnesium oxide 500 mg tablet 500 mg PO QDAY 10/20/16 11/30/18 multivitamin,kh-tsvy-fkfbkaeq 1 tab PO QDAY 10/20/16 11/30/18 tablet ascorbic acid (vitamin C) 500 mg 500 mg PO BID tab 11/29/17 11/30/18 tablet metformin 500 mg tablet 500 mg PO TID tab 11/29/17 11/30/18 Carvedilol [Coreg] 6.25 mg PO BID 11/23/18 11/30/18 Metoprolol Tartrate [Lopressor] 25 mg PO BID 11/23/18 11/23/18 Iron Ps Cmplx/Vit B12/FA [Iferex 1 each PO BID 11/24/18 11/30/18 150 Forte Capsule] furosemide 20 mg tablet 20 mg PO UD 11/30/18 11/30/18 Allergies Allergy/AdvReac Type Severity Reaction Status Date / Time codeine Allergy Unknown RESP Verified 11/30/18 12:43 DISTRESS dofetilide [From Tikosyn] Allergy Unknown unknown Verified 11/30/18 12:43 gabapentin Allergy Unknown unknown Verified 11/30/18 12:43 hydrocodone [HYDROCODONE] Allergy Unknown PT NOT Verified 11/30/18 12:43 SURE OF REACTIONS simvastatin Allergy Unknown Verified 11/30/18 12:43 No to Iodine Allergy Unknown Unknown Uncoded 11/30/18 12:43 No to Latex Allergy Unknown Unknown Uncoded 11/30/18 12:43 From LIPITOR AdvReac Unknown JOINT AND Uncoded 11/30/18 12:43 MUSCLE ACHES From TOPROL XL AdvReac Unknown DIZZY AND Uncoded 11/30/18 12:43 SYNCOPE Review of Systems All systems ED: reviewed and negative except as stated. 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) Impacted cerumen of both ears (Acute) Gastrointestinal bleeding (Acute) Chronic kidney disease, stage 2 (mild) (Chronic) Iron deficiency anemia, unspecified (Chronic) Persistent proteinuria (Chronic) Rash of hands (Chronic) Papules (Chronic) Microalbuminuria (Chronic) Trigger middle finger of right hand (Chronic) Colon polyposis (Chronic) Mitral regurgitation (Chronic) Atrial fibrillation (Chronic) Congestive heart failure (Chronic) Hyperlipidemia (Chronic) Abnormal mammogram (Chronic) Osteopenia (Chronic) History of endocarditis (Chronic) Eustachian tube dysfunction (Chronic) Benign essential hypertension (Chronic) Acute and subacute endocarditis, unspecified (Chronic) Carcinoma of female breast (Chronic) Anemia (Chronic) Cardiac pacemaker in situ (Chronic) Lymphocytopenia (Chronic) Chest pain (Chronic) Cardiac arrhythmia (Chronic) Medical history: Reports: CAD (coronary artery disease), GI bleed, hypertension, valvular heart disease LEGAL ANALYST history: Reports: non-contributory Surgical history ED: Reports: coronary bypass (CABG), heart valve replacement, other (heart valve repair with annuloplasty) - Social History smoking status: Never smoker Alcohol use: Reports: Rarely Physical Exam Limitations: no limitations General appearance: alert, in no apparent distress Head: atraumatic, normocephalic Eye: Present: normal appearance, PERRL, EOMI. Absent: scleral icterus, conjunctival injection ENT: Present: normal oropharynx, mucous membranes moist Neck: Present: trachea midline. Absent: lymphadenopathy, thyromegaly Chest: Present: symmetric chest wall rise Respiratory: Present: normal lung sounds bilaterally. Absent: respiratory distress, wheezes, stridor, accessory muscle use, prolonged expiratory phase Cardiovascular: Present: regular rate, normal rhythm. Absent: systolic murmur, diastolic murmur Abdominal: Present: soft. Absent: distention, tenderness, guarding, rebound, rigidity, organomegaly, mass Extremities: Absent: pedal edema, pretibial edema, calf tenderness Back: Absent: CVA tenderness (R), CVA tenderness (L), spinous process tenderness Neurological: Present: alert, oriented X3 Psychiatric: Present: normal affect, normal mood Skin: Present: warm, dry Course Course Narrative: 73-year-old female presenting with a chief complaint of not really sleeping very well last night also feeling generally ill and fatigued over the past couple of weeks. Patient without edema dyspnea hypoxia or other findings to suggest congestive heart failure patient does have systolics in the 80s with multiple chronic medical problems patient is assess for endorgan compromise given these blood pressure values and significant findings are patient with excellent mental status, ambulating highly verbal without evidence of neurological compromise, laboratories were also obtained as well as EKG demonstrating pacer is functioning appropriately with good pulse verified by auscultation as well. Laboratory evaluation reveals patient with significant anemia, hypokalemia, and hyponatremia. Patient has recently had med adjustment specifically increased Lasix. Patient with sodium at 125, potassium at 5.9 as well as significantly reduced hemoglobin hematocrit patient recently should be admitted and given blood transfusion correct electrolytes and adjust medications as necessary. I did put in a call to hospitalist/nursing automotive fleet supervisor. Nursing automotive fleet supervisor is actively adjusting staffing once that is completed will be advised of the status of this case. Patient will still be in the department at time of shift change and Dr. mejias will assume care. Vital Signs Temperature 97.0 F 02/05/19 06:13 Pulse Rate 70 02/05/19 06:13 Respiratory Rate 18 02/05/19 06:13 Blood Pressure 88/50 02/05/19 06:13 Pulse Oximetry (%) 100 02/05/19 06:13 Temperature 97.0 F 02/05/19 06:13 Pulse Rate 37 L 02/05/19 07:55 Respiratory Rate 18 02/05/19 06:13 Blood Pressure 83/48 02/05/19 07:46 Pulse Oximetry (%) 99 02/05/19 07:55 Medical Decision Making - Lab Data Result diagrams: 02/05/19 06:53 02/05/19 06:53 Lab Results 02/05/19 02/05/19 02/05/19 Range/Units 06:53 06:53 06:53 WBC 5.3 (4.5-11.0) K/mcL RBC 2.37 L (4.00-5.20) M/mcL Hgb 6.3 L* (12.0-15.0) g/dL Hct 19.6 L* (36.0-48.0) % MCV 82.5 (80.0-100.0) fL MCH 26.7 (26.0-34.0) pg MCHC 32.3 (31.0-36.0) g/dL RDW 16.7 H (11.5-14.5) % Plt Count 250 (140-440) K/mcL MPV 7.0 L (7.4-10.4) fL Gran % 72.9 (38.0-78.0) % Lymph % (Auto) 17.5 (15.5-49.0) % [place] % (Auto) 7.3 (1.0-12.0) % Eos % (Auto) 2.1 (0.0-7.0) % Baso % (Auto) 0.2 (0.0-2.0) % Gran # 3.9 (1.8-8.0) K/mcL Lymph # (Auto) 0.9 L (1.5-4.8) K/mcL [place] # (Auto) 0.4 (0.1-0.9) K/mcL Eos # (Auto) 0.1 (0.0-0.7) K/mcL Baso # (Auto) 0 (0.0-0.3) K/mcL Sodium 125 L (133-145) mmol/L Potassium 5.9 H* (3.3-5.1) mmol/L Chloride 90 L (96-108) mmol/L Carbon Dioxide 23 (22-30) mmol/L Anion Gap 12.0 (8-16) BUN 67 H (8-23) mg/dl Creatinine 1.5 H (0.6-1.1) mg/dl GFR Calculation 34 Glucose 121 H (70-105) mg/dL Calcium 8.9 (8.6-10.4) mg/dl Total Bilirubin 0.3 (0.0-1.0) mg/dL AST 12 (0-37) U/l ALT 6 (0-40) U/l Alkaline Phosphatase 57 (39-117) U/L Troponin T < 0.01 (0-0.03) ng/ml Total Protein 6.8 (5.9-8.4) gm/dL Albumin 4.0 (3.2-5.2) gm/dL Globulin 2.8 (2.2-3.7) gm/dL Albumin/Globulin Ratio 1.4 (1.0-2.3) - EKG Data EKG #1 EKG results narrative: Paced rhythm, rate 75 pacer spikes are every other beat no further analysis secondary to paced Disposition Pt seen by STATE APPELLATE CLERK/PA only: No Clinical Impression: Pacemaker ECG pattern, Symptomatic anemia, Hyponatremia Insomnia Qualifiers: Insomnia type: unspecified Qualified Code(s): G47.00 - Insomnia, unspecified Disposition: Still a Patient Condition: Fair Referrals: Sandra Leger MD [Primary Care Provider] -
[2019-02-05 08:02] LABS: Basophils # (Auto) 0 K/mcL (0.0-0.3); Basophils % (Auto) 0.2 % (0.0-2.0); Eosinophils # (Auto) 0.1 K/mcL (0.0-0.7); Eosinophils % (Auto) 2.1 % (0.0-7.0); Granulocytes % (Auto) 72.9 % (38.0-78.0); Hematocrit 19.6 % (36.0-48.0); Hemoglobin 6.3 g/dL (12.0-15.0); Lymphocytes # (Auto) 0.9 K/mcL (1.5-4.8); Lymphocytes % (Auto) 17.5 % (15.5-49.0); Mean Cell Volume 82.5 fL (80.0-100.0); Mean Corpuscular HGB Conc 32.3 g/dL (31.0-36.0); Monocytes # (Auto) 0.4 K/mcL (0.1-0.9); Monocytes % (Auto) 7.3 % (1.0-12.0); Platelet Count 250 K/mcL (140-440); RBC 2.37 M/mcL (4.00-5.20); Red Cell Distribution Width 16.7 % (11.5-14.5); WBC 5.3 K/mcL (4.5-11.0)
[2019-02-05 08:03] LABS: ALT/SGPT 6 U/l (0-40); AST/SGOT 12 U/l (0-37); Albumin/Globulin Ratio 1.4 (1.0-2.3); Alkaline Phosphatase 57 U/L (39-117); Bilirubin,Total 0.3 mg/dL (0.0-1.0); Blood Urea Nitrogen 67 mg/dl (8-23); Calcium 8.9 mg/dl (8.6-10.4); Carbon Dioxide 23 mmol/L (22-30); Chloride 90 mmol/L (96-108); Globulin 2.8 gm/dL (2.2-3.7); Glomerular Filtration Rate 34; Glucose 121 mg/dL (70-105)
--- NOTE | 2019-02-05 09:14 | XRay Report ---
HISTORY: Chest pain and dyspnea FINDINGS: The heart is mildly enlarged. There is a prosthetic mitral valve. Dual-chamber pacemaker is well-positioned. The lungs are clear and well expanded. There is no congestive heart failure or pleural effusion. No adenopathy is detected. There are clips in the right axilla. No metastasis are identified. An old healed fracture is present in the midportion of the right clavicle. Allowing for differences in technique there has been little change from the prior IMPRESSION: Stable cardiomegaly and no evidence of congestive heart failure or acute abnormality. Interpreted and Authenticated by: Glen Salazar 02/05/19
[2019-02-05] MEDS ORDERED: 0.9 % SODIUM CHLORIDE 250 ML IV SCH (10:45)
--- NOTE | 2019-02-05 11:45 | Emergency Department Note ---
General Adult HPI - General Chief complaint: Blood Pressure Problem Stated complaint: Worried about vitals Time Seen by Provider: 02/05/19 06:47 Mode of arrival: ambulatory Limitations: no limitations - History of Present Illness HPI Narrative: I did do a rectal exam on this patient and she was guaiac positive. She had endoscopy in November and had angiodysplasia cauterized. Severity scale (1-10): 5 Improves with: none Worsens with: other (not sleeping well) Associated symptoms: Reports: denies other symptoms Treatments Prior to Arrival: none - Related Data Home Medications Medication Instructions Recorded Confirmed aspirin 81 mg tablet,delayed 81 mg PO QDAY 07/30/16 11/30/18 release blood sugar diagnostic strips See Dose Instructions .ROUTE QID 07/30/16 11/24/18 diltiazem ER 180 mg capsule,24 180 mg PO QPM cap 07/30/16 11/30/18 hr,extended release ferrous sulfate 325 mg (65 mg 325 mg PO BID 07/30/16 11/30/18 iron) tablet losartan 100 mg tablet 100 mg PO QDAY 07/30/16 11/30/18 omega-3 fatty acids 1,000 mg 1,000 mg PO BID cap 07/30/16 11/30/18 capsule rosuvastatin 10 mg tablet 5 mg PO 3XW tab 07/30/16 11/30/18 cefuroxime axetil 250 mg tablet 250 mg PO Q12H 10/20/16 11/30/18 cholecalciferol (vitamin D3) 1,000 1,000 unit PO .QOD cap 10/20/16 11/30/18 unit capsule cyanocobalamin (vit B-12) 1,000 1,000 mcg PO QDAY 10/20/16 11/30/18 mcg tablet gemfibrozil 600 mg tablet 600 mg PO BID 30 Days #60 tab 10/20/16 11/30/18 magnesium oxide 500 mg tablet 500 mg PO QDAY 10/20/16 11/30/18 multivitamin,ac-xkjh-quwlzyyq 1 tab PO QDAY 10/20/16 11/30/18 tablet ascorbic acid (vitamin C) 500 mg 500 mg PO BID tab 11/29/17 11/30/18 tablet metformin 500 mg tablet 500 mg PO TID tab 11/29/17 11/30/18 Carvedilol [Coreg] 6.25 mg PO BID 11/23/18 11/30/18 Metoprolol Tartrate [Lopressor] 25 mg PO BID 11/23/18 11/23/18 Iron Ps Cmplx/Vit B12/FA [Iferex 1 each PO BID 11/24/18 11/30/18 150 Forte Capsule] furosemide 20 mg tablet 20 mg PO UD 11/30/18 11/30/18 Allergies Allergy/AdvReac Type Severity Reaction Status Date / Time codeine Allergy Unknown RESP Verified 11/30/18 12:43 DISTRESS dofetilide [From Tikosyn] Allergy Unknown unknown Verified 11/30/18 12:43 gabapentin Allergy Unknown unknown Verified 11/30/18 12:43 hydrocodone [HYDROCODONE] Allergy Unknown PT NOT Verified 11/30/18 12:43 SURE OF REACTIONS simvastatin Allergy Unknown Verified 11/30/18 12:43 No to Iodine Allergy Unknown Unknown Uncoded 11/30/18 12:43 No to Latex Allergy Unknown Unknown Uncoded 11/30/18 12:43 From LIPITOR AdvReac Unknown JOINT AND Uncoded 11/30/18 12:43 MUSCLE ACHES From TOPROL XL AdvReac Unknown DIZZY AND Uncoded 11/30/18 12:43 SYNCOPE Past Medical History - Past Medical History Medical history: Reports: CAD (coronary artery disease), GI bleed, hypertension, valvular heart disease 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 Surgical history ED: Reports: coronary bypass (CABG), heart valve replacement, other (heart valve repair with annuloplasty) - Social History smoking status: Never smoker Alcohol use: Reports: Rarely Physical Exam Limitations: no limitations General appearance: alert, in no apparent distress Course Vital Signs Temperature 97.0 F 02/05/19 06:13 Pulse Rate 70 02/05/19 06:13 Respiratory Rate 18 02/05/19 06:13 Blood Pressure 88/50 02/05/19 06:13 Pulse Oximetry (%) 100 02/05/19 06:13 Temperature 97.0 F 02/05/19 06:13 Pulse Rate 108 H 02/05/19 10:01 Respiratory Rate 18 02/05/19 06:13 Blood Pressure 138/118 02/05/19 11:01 Pulse Oximetry (%) 100 02/05/19 10:01 Medical Decision Making - [facility] Narrative Medical decision making narrative: I discussed the case with Dr. Tovar the general surgeon who will do endoscopy and place a central line. Dr. Eldridge will do the admission and she will receive 2 units of packed red cells. - Lab Data Lab results reviewed: Yes I reviewed the patient's lab results. Result diagrams: 02/05/19 06:53 02/05/19 06:53 Lab Results 02/05/19 02/05/19 02/05/19 Range/Units 06:53 06:53 06:53 WBC 5.3 (4.5-11.0) K/mcL RBC 2.37 L (4.00-5.20) M/mcL Hgb 6.3 L* (12.0-15.0) g/dL Hct 19.6 L* (36.0-48.0) % MCV 82.5 (80.0-100.0) fL MCH 26.7 (26.0-34.0) pg MCHC 32.3 (31.0-36.0) g/dL RDW 16.7 H (11.5-14.5) % Plt Count 250 (140-440) K/mcL MPV 7.0 L (7.4-10.4) fL Gran % 72.9 (38.0-78.0) % Lymph % (Auto) 17.5 (15.5-49.0) % [place] % (Auto) 7.3 (1.0-12.0) % Eos % (Auto) 2.1 (0.0-7.0) % Baso % (Auto) 0.2 (0.0-2.0) % Gran # 3.9 (1.8-8.0) K/mcL Lymph # (Auto) 0.9 L (1.5-4.8) K/mcL [place] # (Auto) 0.4 (0.1-0.9) K/mcL Eos # (Auto) 0.1 (0.0-0.7) K/mcL Baso # (Auto) 0 (0.0-0.3) K/mcL Sodium 125 L (133-145) mmol/L Potassium 5.9 H* (3.3-5.1) mmol/L Chloride 90 L (96-108) mmol/L Carbon Dioxide 23 (22-30) mmol/L Anion Gap 12.0 (8-16) BUN 67 H (8-23) mg/dl Creatinine 1.5 H (0.6-1.1) mg/dl GFR Calculation 34 Glucose 121 H (70-105) mg/dL Calcium 8.9 (8.6-10.4) mg/dl Total Bilirubin 0.3 (0.0-1.0) mg/dL AST 12 (0-37) U/l ALT 6 (0-40) U/l Alkaline Phosphatase 57 (39-117) U/L Troponin T < 0.01 (0-0.03) ng/ml Total Protein 6.8 (5.9-8.4) gm/dL Albumin 4.0 (3.2-5.2) gm/dL Globulin 2.8 (2.2-3.7) gm/dL Albumin/Globulin Ratio 1.4 (1.0-2.3) Disposition 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
[2019-02-05 12:11] LABS: Appearance,Urine CLEAR; Bacteria,Urine 0 /hpf (0); Bilirubin,Urine NEG (NEG); Color,Urine STRAW; Culture Indicated,Urine NO; Glucose,Urine (UA) NEGATIVE (NEG); Ketones,Urine NEG (NEG); Leukocyte Esterase,Urine NEG /uL (NEG); Mucus,Urine FEW /hpf (0); Nitrate,Urine NEG (NEG); Protein,Urine NEG (NEG); Specific Gravity,Urine 1.008 (1.000-1.035); Urine Blood NEG mg/dL (<0.03); Urine RBC < 1 /hpf (0-1); Urine Squamous Epithelial Cell < 1 /hpf (0-4); Urine WBC < 1 /hpf (0-4); Urobilinogen,Urine NEG (NEG)
[2019-02-05] MEDS ORDERED: LACTATED RINGERS 1,000 ML IV ONE (12:28)
--- NOTE | 2019-02-05 12:45 | General Surgery Procedure Note ---
Date of procedure: Note initiated : 02/05/19 at 12:42 pm Service Date, if different from initiated Date: [] Pre-op diagnosis: severe anemia;gi bleeding Post-op diagnosis: other (severe anemia ;gi bleeding) Procedure: right subclavian central venous catheter placement Findings: N/A Anesthesia: local (1%LIDOCAINE LOCAL INFILTRATION) Surgeon: Adrian Tovar Pathology: none sent Condition: stable Disposition: ICU
--- NOTE | 2019-02-05 13:16 | Internal Med History&Physical ---
Medical - H&P: [facility] Patient information: Note initiated : 02/05/19 at 1:16 pm Service Date, if different from initiated Date: [] Patient: Shahnaz Rutledge a 73 y/o F admitted on for Worried about vitals. Chief Complaint: Concern about her heart History of present illness: Ms. Rutledge is a 73 year old F with a history of GI bleed, most recently with endoscopy in November of this year, history of pacemaker and mitral valve repair, type 2 diabetes, atrial fibrillation with history of ablation who presents to the emergency department early this morning with nonspecific complaints. Patient complains of not having energy, cannot sleep well last night. She was fretting that this could be related to her heart for some reason. She denied any chest pain. She has noted some dyspnea. She is also felt anxious and felt that "something is wrong". She said no nausea or vomiting, no diarrhea, no abdominal pain. She had no hematemesis. Her stools are chronically black, but they have not become tarry, no maroon stools. No lightheadedness, no presyncope. Patient notes that her blood pressure is been low normal since her last hospitalization. She did develop some foot and ankle edema while ago and was prescribed furosemide which she has taken. She is tapered down on the furosemide and is been trying to drink more fluid in the past week. In the emergency department, blood pressure was in the low normal range, she is not tachycardic. However laboratory evaluation revealed hemoglobin of 6.3 which it fallen from a recent reading of 8.4. Rectal exam was heme positive. Further labs showed acute renal failure with creatinine of 1.5 and hyperkalemia. She is being admitted to the hospital for further evaluation of anemia. Dr. Tovar will consult and perform EGD, as gastroenterology is not available this weekend. All systems: reviewed and no additional remarkable complaints except as stated Medical - H&P: PMH Medical history: Rash of hands (Chronic) Papules (Chronic) Microalbuminuria (Chronic) Trigger middle finger of right hand (Chronic) Colon polyposis (Chronic) Mitral regurgitation (Chronic) Atrial fibrillation (Chronic) Congestive heart failure (Chronic) Hyperlipidemia (Chronic) Abnormal mammogram (Chronic) Osteopenia (Chronic) History of endocarditis (Chronic) Eustachian tube dysfunction (Chronic) Benign essential hypertension (Chronic) Acute and subacute endocarditis, unspecified (Chronic) Carcinoma of female breast (Chronic) Anemia (Chronic) Cardiac pacemaker in situ (Chronic) Lymphocytopenia (Chronic) Chest pain (Chronic) Cardiac arrhythmia (Chronic) Surgical history: History of breast biopsy (Chronic 03/14/03) History of cardiac radiofrequency ablation (Chronic 02/14/02) History of colonoscopy (Chronic 04/25/12) History of local excision of skin lesion (Chronic 10/21/09) History of lumpectomy (Chronic 04/02/03) History of mitral valve repair (Chronic 02/14/02) Status post laser cataract surgery (Chronic 06/15/14) Status post placement of cardiac pacemaker (Chronic 02/21/07) Status post tendon repair (Chronic 10/09/99) Medical - H&P: Meds Home Medications Medication Instructions Recorded Confirmed Type aspirin 81 mg tablet,delayed 81 mg PO UD 07/30/16 02/05/19 History release blood sugar diagnostic strips See Dose Instructions .ROUTE QID 07/30/16 11/24/18 History diltiazem ER 180 mg capsule,24 180 mg PO QPM cap 07/30/16 02/05/19 History hr,extended release losartan 100 mg tablet 100 mg PO QDAY 07/30/16 02/05/19 History omega-3 fatty acids 1,000 mg 1,000 mg PO BID cap 07/30/16 02/05/19 History capsule rosuvastatin 10 mg tablet 5 mg PO 3XW tab 07/30/16 02/05/19 History cefuroxime axetil 250 mg tablet 250 mg PO Q12H 10/20/16 02/05/19 History cholecalciferol (vitamin D3) 1,000 1,000 unit PO .QOD cap 10/20/16 02/05/19 History unit capsule cyanocobalamin (vit B-12) 1,000 1,000 mcg PO QDAY 10/20/16 02/05/19 History mcg tablet gemfibrozil 600 mg tablet 600 mg PO BID 30 Days #60 tab 10/20/16 02/05/19 History magnesium oxide 500 mg tablet 500 mg PO QDAY 10/20/16 02/05/19 History multivitamin,yk-dsek-ueigrsiv 1 tab PO QDAY 10/20/16 02/05/19 History tablet ascorbic acid (vitamin C) 500 mg 500 mg PO BID tab 11/29/17 02/05/19 History tablet metformin 500 mg tablet 500 mg PO TID tab 11/29/17 02/05/19 History Carvedilol [Coreg] 12.5 mg PO BID 11/23/18 02/05/19 History Iron Ps Cmplx/Vit B12/FA [Iferex 1 each PO BID 11/24/18 02/05/19 History 150 Forte Capsule] furosemide 20 mg tablet 40 - 60 mg PO BID 11/30/18 02/05/19 History Spironolactone [Aldactone] 25 mg PO DAILY 02/05/19 02/05/19 History Sucralfate [Carafate] 1 gm PO QID 02/05/19 02/05/19 History Allergies Allergy/AdvReac Type Severity Reaction Status Date / Time codeine Allergy Unknown RESP Verified 11/30/18 12:43 DISTRESS dofetilide [From Tikosyn] Allergy Unknown unknown Verified 11/30/18 12:43 gabapentin Allergy Unknown unknown Verified 11/30/18 12:43 hydrocodone [HYDROCODONE] Allergy Unknown PT NOT Verified 11/30/18 12:43 SURE OF REACTIONS simvastatin Allergy Unknown Verified 11/30/18 12:43 No to Iodine Allergy Unknown Unknown Uncoded 11/30/18 12:43 No to Latex Allergy Unknown Unknown Uncoded 11/30/18 12:43 From LIPITOR AdvReac Unknown JOINT AND Uncoded 11/30/18 12:43 MUSCLE ACHES From TOPROL XL AdvReac Unknown DIZZY AND Uncoded 11/30/18 12:43 SYNCOPE Medical - H&P: Exam - Constitutional Vitals: Temp Pulse Resp BP Pulse Ox 97.0 F 106 H 21 102/69 98 02/05/19 06:13 02/05/19 12:58 02/05/19 12:58 02/05/19 12:56 02/05/19 12:58 Exam: GENERAL: Alert, oriented, thin, in no acute distress. Cooperative, appears stated age. HEENT: Atraumatic. PERRL at 2 mm, conjunctiva clear, no scleral icterus. Hearing grossly intact. Oropharynx with moist mucous membranes, tongue is midline. NECK: Supple without meningismus, no thyromegaly RESPIRATORY: Breath sounds clear bilaterally without wheezes or rhonchi. Respiratory effort is unlabored. CARDIOVASCULAR: Regular rate and rhythm, no murmur gallop or rub. No peripheral edema. Carotid pulses 2+ without bruit. Pedal pulses 2+. GI: Abdomen soft, nontender, no guarding or rebound. Bowel sounds are present. No hepatosplenomegaly. LYMPHATIC: No cervical or supraclavicular lymphadenopathy MUSCULOSKELETAL: No joint erythema or swelling, normal range of motion in all extremities. No pedal edema SKIN: Warm, dry. Well-healed median sternotomy scar. NEUROLOGIC: Cranial nerves II through XII grossly intact. Muscle mass diminished. Strength 5/5 in the upper and lower extremities. Sensation intact to light touch bilaterally. Deep tendon reflexes trace at the biceps and patella. PSYCHIATRIC: Alert, oriented x3, normal mood and affect, normal insight. Medical - H&P: Reslt - Labs CBC & Chem 7: 02/05/19 06:53 02/05/19 06:53 Labs: Short CBC 02/05/19 Range/Units 06:53 WBC 5.3 (4.5-11.0) K/mcL Hgb 6.3 L* (12.0-15.0) g/dL Hct 19.6 L* (36.0-48.0) % Plt Count 250 (140-440) K/mcL BMP 02/05/19 06:53 Sodium 125 L Potassium 5.9 H* Chloride 90 L Carbon Dioxide 23 BUN 67 H Creatinine 1.5 H Glucose 121 H Calcium 8.9 Cardiac Enzymes 02/05/19 Range/Units 06:53 Troponin T < 0.01 (0-0.03) ng/ml Liver Function 02/05/19 Range/Units 06:53 Total Bilirubin 0.3 (0.0-1.0) mg/dL AST 12 (0-37) U/l ALT 6 (0-40) U/l Alkaline Phosphatase 57 (39-117) U/L Albumin 4.0 (3.2-5.2) gm/dL Urine 02/05/19 Range/Units 11:32 Urine Color Straw Urine Appearance Clear Urine pH 7.0 (5.0-9.0) Ur Specific [place] 1.008 (1.000-1.035) Urine Protein Neg (NEG) mg/dL Urine Glucose (UA) Negative (NEG) mg/dL - EKG Data -: EKG Reviewed by Myself (Paced at a rate of 75) - Imaging and Cardiology Chest x-ray Status: image reviewed by me (IMPRESSION: Stable cardiomegaly and no evidence of congestive heart) Medical - H&P: A/P (1) Anemia Current visit: No Status: Chronic (2) Acute renal failure Current visit: Yes Status: Acute (3) Hyperkalemia Current visit: Yes Status: Acute (4) Type 2 diabetes mellitus Current visit: Yes Status: Acute (5) Atrial fibrillation Current visit: No Status: Chronic - Narrative A/P Narrative: 73-year-old female presents with nonspecific feelings of malaise, found to have critical anemia and acute renal failure. Anemia. She has had GI bleed in the past. She received 2 units of packed cells during the visit in 2017 (do not have those records). Also received transfusion this past November. In November EGD showed either a Dieulafoy lesion or angiodysplasia which was cauterized. Suspect her anemia is been due to ongoing chronic GI blood loss. She is likely at high risk of having further angiodysplastic lesions. She is been trying to avoid PPIs due to its associated with chronic kidney disease (has stage II chronic kidney disease). Central line is been placed in the ED by Dr. Tovar for IV access given poor peripheral access. Plan: Inpatient admission, transfused 2 units of packed red blood cells. Consult to Dr. Tovar for endoscopy. Hold aspirin. Begin PPI. Acute kidney injury on CKD stage II. Suspect this is secondary to combination of diuretic use as well as her anemia. Also with hyperkalemia, likely secondary to spironolactone therapy in addition to her acute kidney injury. Her BUN is fairly elevated at 67 suggesting perhaps an ongoing upper GI hemorrhage. Plan: Monitor labs after fluids and blood resuscitation. No EKG changes to suggest a more aggressive treatment of her potassium. Hold spironolactone Type 2 diabetes mellitus. Not insulin requiring. Is fairly well controlled in reviewing the chart. Plan: Hold metformin, sliding scale insulin. Hypertension. Patient on carvedilol, diltiazem and losartan. Some of that is for rate control with history of A. fib. Plan: Hold for now given concern for GI bleed. May need to resume rate controlling agents. Atrial fibrillation. Currently paced on her EKG. not on anticoagulation. Plan: Monitor, may need to resume rate controlling agents as pressure allows. CODE STATUS: Full code Prophylaxis: SCDs due to concern for GI hemorrhage.
--- NOTE | 2019-02-05 13:34 | General Surgery Consult Note ---
History of Present Illness Patient information: Note initiated : 02/05/19 at 1:31 pm Service Date, if different from initiated Date: [] Patient: Shahnaz Rutledge 73 y/o F admitted on for Worried about vitals. Chief Complaint: [] Reason for consult: other (GI bleeding and anemia) Requesting physician: Marylou Lama History of present illness: 73-year-old female admitted via the ER for generalized weakness and lethargy related to anemia. The patient has a long history of iron deficiency anemia. She has had workup including upper endoscopy, push endoscopy, by mouth Harsha and colonoscopy without any abnormalities being found. Her last endoscopy was 11/24/2018 when her hemoglobin was 5.8. She was found to have blood in her duodenum with finding of a area of angiodysplasia. This was treated with epinephrine injection and it ceased. She was transfused 3 units of blood at that time. Her hemoglobin has been about 8 but she's gotten progressively weaker over the past 2 weeks. She does not have brisk bleeding at this time her hemoglobin is 6.3. She is admitted for transfusion and will have upper endoscopy tomorrow. Review of Systems All systems PM: reviewed and no additional remarkable complaints except as stated (negative except as noted below) Past History Past medical history: Chronic kidney disease stage II Diabetes mellitus2 Chronic iron deficiency anemia Hypertension Right breast cancer History of endocarditis 3 Atrial fibrillation Cardiac pacemaker Past surgical history: Right breast lumpectomy Cardiac radiofrequency ablation My trouble valvuloplasty Permanent pacemaker placement Bilateral extracapsular cataract extraction Past family history: Mother age 39 due to auto accident Father age 80 due to natural causes Brother age 50 due to chronic alcohol complications Past social history: Denies tobacco use Denies alcohol use Denies drug use Medications and Allergies Home Medications Medication Instructions Recorded Confirmed Type aspirin 81 mg tablet,delayed 81 mg PO QDAY 07/30/16 11/30/18 History release blood sugar diagnostic strips See Dose Instructions .ROUTE QID 07/30/16 11/24/18 History diltiazem ER 180 mg capsule,24 180 mg PO QPM cap 07/30/16 11/30/18 History hr,extended release ferrous sulfate 325 mg (65 mg 325 mg PO BID 07/30/16 11/30/18 History iron) tablet losartan 100 mg tablet 100 mg PO QDAY 07/30/16 11/30/18 History omega-3 fatty acids 1,000 mg 1,000 mg PO BID cap 07/30/16 11/30/18 History capsule rosuvastatin 10 mg tablet 5 mg PO 3XW tab 07/30/16 11/30/18 History cefuroxime axetil 250 mg tablet 250 mg PO Q12H 10/20/16 11/30/18 History cholecalciferol (vitamin D3) 1,000 1,000 unit PO .QOD cap 10/20/16 11/30/18 History unit capsule cyanocobalamin (vit B-12) 1,000 1,000 mcg PO QDAY 10/20/16 11/30/18 History mcg tablet gemfibrozil 600 mg tablet 600 mg PO BID 30 Days #60 tab 10/20/16 11/30/18 History magnesium oxide 500 mg tablet 500 mg PO QDAY 10/20/16 11/30/18 History multivitamin,nd-pzgk-amrnwgkk 1 tab PO QDAY 10/20/16 11/30/18 History tablet ascorbic acid (vitamin C) 500 mg 500 mg PO BID tab 11/29/17 11/30/18 History tablet metformin 500 mg tablet 500 mg PO TID tab 11/29/17 11/30/18 History Carvedilol [Coreg] 6.25 mg PO BID 11/23/18 11/30/18 History Metoprolol Tartrate [Lopressor] 25 mg PO BID 11/23/18 11/23/18 History Iron Ps Cmplx/Vit B12/FA [Iferex 1 each PO BID 11/24/18 11/30/18 History 150 Forte Capsule] furosemide 20 mg tablet 20 mg PO UD 11/30/18 11/30/18 History Allergies Allergy/AdvReac Type Severity Reaction Status Date / Time codeine Allergy Unknown RESP Verified 11/30/18 12:43 DISTRESS dofetilide [From Tikosyn] Allergy Unknown unknown Verified 11/30/18 12:43 gabapentin Allergy Unknown unknown Verified 11/30/18 12:43 hydrocodone [HYDROCODONE] Allergy Unknown PT NOT Verified 11/30/18 12:43 SURE OF REACTIONS simvastatin Allergy Unknown Verified 11/30/18 12:43 No to Iodine Allergy Unknown Unknown Uncoded 11/30/18 12:43 No to Latex Allergy Unknown Unknown Uncoded 11/30/18 12:43 From LIPITOR AdvReac Unknown JOINT AND Uncoded 11/30/18 12:43 MUSCLE ACHES From TOPROL XL AdvReac Unknown DIZZY AND Uncoded 11/30/18 12:43 SYNCOPE Exam Temp Pulse Resp BP Pulse Ox 97.0 F 106 H 21 102/69 98 02/05/19 06:13 02/05/19 12:58 02/05/19 12:58 02/05/19 12:56 02/05/19 12:58 - General physical appearance no distress, other (underweight) - Eyes PERRL, normal ocular movement - ENT normal pinna, normal nares, normal mucosa, no hearing loss, no congestion, other ( fair dentition) - Head Head exam IM: Present: atraumatic, normocephalic - Neck no masses, no bruits, trachea midline, no lymphadenopathy, no venous distension - Cardiovascular Cardiovascular exam IM: Present: normal rate and rhythm, JVD, +S1, +S2 Type of murmur IM: Present: blowing, systolic Intensity IM: 2/6 - Respiratory normal expansion, normal respiratory effort, clear to percussion, clear to auscultation - Abdomen Abdomen: Present: soft, non tender, bowel sounds Hernia: Present: none - Genitourinary Present: normal external genitalia - Integumentary Present: no rash, no growths, no abnormal pigmentation - Neurologic Present: normal coordination, normal sensation - Musculoskeletal Present: normal gait, normal posture - Psychiatric Present: oriented to time, oriented to person, oriented to place, speech is normal, memory intact Results - Labs 02/05/19 06:53 02/05/19 06:53 Abnormal lab results 02/05/19 02/05/19 Range/Units 06:53 06:53 RBC 2.37 L (4.00-5.20) M/mcL Hgb 6.3 L* (12.0-15.0) g/dL Hct 19.6 L* (36.0-48.0) % RDW 16.7 H (11.5-14.5) % MPV 7.0 L (7.4-10.4) fL Lymph # (Auto) 0.9 L (1.5-4.8) K/mcL Sodium 125 L (133-145) mmol/L Potassium 5.9 H* (3.3-5.1) mmol/L Chloride 90 L (96-108) mmol/L BUN 67 H (8-23) mg/dl Creatinine 1.5 H (0.6-1.1) mg/dl Glucose 121 H (70-105) mg/dL Diabetes panel 02/05/19 Range/Units 06:53 Sodium 125 L (133-145) mmol/L Potassium 5.9 H* (3.3-5.1) mmol/L Chloride 90 L (96-108) mmol/L Carbon Dioxide 23 (22-30) mmol/L BUN 67 H (8-23) mg/dl Creatinine 1.5 H (0.6-1.1) mg/dl Glucose 121 H (70-105) mg/dL Calcium 8.9 (8.6-10.4) mg/dl AST 12 (0-37) U/l ALT 6 (0-40) U/l Alkaline Phosphatase 57 (39-117) U/L Total Protein 6.8 (5.9-8.4) gm/dL Albumin 4.0 (3.2-5.2) gm/dL Calcium panel 02/05/19 Range/Units 06:53 Calcium 8.9 (8.6-10.4) mg/dl Albumin 4.0 (3.2-5.2) gm/dL Pituitary panel 02/05/19 Range/Units 06:53 Sodium 125 L (133-145) mmol/L Potassium 5.9 H* (3.3-5.1) mmol/L Chloride 90 L (96-108) mmol/L Carbon Dioxide 23 (22-30) mmol/L BUN 67 H (8-23) mg/dl Creatinine 1.5 H (0.6-1.1) mg/dl Glucose 121 H (70-105) mg/dL Calcium 8.9 (8.6-10.4) mg/dl Adrenal panel 02/05/19 Range/Units 06:53 Sodium 125 L (133-145) mmol/L Potassium 5.9 H* (3.3-5.1) mmol/L Chloride 90 L (96-108) mmol/L Carbon Dioxide 23 (22-30) mmol/L BUN 67 H (8-23) mg/dl Creatinine 1.5 H (0.6-1.1) mg/dl Glucose 121 H (70-105) mg/dL Calcium 8.9 (8.6-10.4) mg/dl Total Bilirubin 0.3 (0.0-1.0) mg/dL AST 12 (0-37) U/l ALT 6 (0-40) U/l Alkaline Phosphatase 57 (39-117) U/L Total Protein 6.8 (5.9-8.4) gm/dL Albumin 4.0 (3.2-5.2) gm/dL All other labs normal. Assessment and Plan (1) Gastrointestinal bleeding Patient will be transfused above hemoglobin of 9 tonight We'll schedule for upper endoscopy tomorrow Intravenous PPI therapy Status: Acute (2) Atrial fibrillation Continue home medications Status: Chronic Qualifiers: Atrial fibrillation type: chronic Qualified Code(s): I48.2 - Chronic atrial fibrillation (3) Benign essential hypertension Continue home medications Status: Chronic (4) Carcinoma of female breast Status: Chronic (5) Cardiac pacemaker in situ Status: Chronic (6) History of endocarditis Status: Chronic (7) Iron deficiency anemia, unspecified Status: Chronic Qualifiers: Iron deficiency anemia type: unspecified iron deficiency Qualified Code(s): D50.9 - Iron deficiency anemia, unspecified
[2019-02-05] MEDS ORDERED: LACTATED RINGERS 1,000 ML IV SCH (14:22)
[2019-02-05] MEDS ORDERED: ESOMEPRAZOLE 40 MG VIAL IV SCH ×3 (14:22→21:00)
[2019-02-05] MEDS ORDERED: ACETAMINOPHEN 325 MG TABLET PO PRN ×2 (14:22→17:01)
[2019-02-05] MEDS ORDERED: ONDANSETRON 4 MG/2 ML VIAL IV PRN ×2 (14:22→17:01)
[2019-02-05] MEDS ORDERED: 0.9 % SODIUM CHLORIDE 10 ML SYRINGE IV SCH (14:22)
--- NOTE | 2019-02-05 14:30 | XRay Report ---
HISTORY: Central line placement FINDINGS: A right subclavian catheter is been an surgery. The tip is in the region of the superior vena cava. There is a skin fold artifact over the right apex which mimics a pneumothorax. There is no pneumothorax or pleural effusion or atelectasis. The lungs are clear. Heart is mildly enlarged. No congestive heart failure is present. Except for placement of the central line there has been no change from the prior exam done at 7:27 AM on the same date. IMPRESSION: no complication following insertion of a right subclavian catheter Interpreted and Authenticated by: Glen Salazar 02/05/19
[2019-02-05] MEDS: LACTATED RINGERS 1,000 ML IV SCH (17:09)
[2019-02-05] MEDS ORDERED: ACETAMINOPHEN 325 MG TABLET PO ONE (18:21)
[2019-02-05] MEDS: 0.9 % SODIUM CHLORIDE 10 ML SYRINGE IV SCH (22:42)
[2019-02-05] MEDS: ESOMEPRAZOLE 40 MG VIAL IV SCH (22:42)
[2019-02-05 23:51] LABS: Basophils # (Auto) 0 K/mcL (0.0-0.3); Basophils % (Auto) 0.4 % (0.0-2.0); Eosinophils # (Auto) 0.2 K/mcL (0.0-0.7); Eosinophils % (Auto) 3.3 % (0.0-7.0); Granulocytes % (Auto) 77.7 % (38.0-78.0); Hematocrit 27.6 % (36.0-48.0); Lymphocytes % (Auto) 13.5 % (15.5-49.0); Mean Cell Volume 85.6 fL (80.0-100.0); Mean Corpuscular HGB Conc 32.6 g/dL (31.0-36.0); Mean Platelet Volume 6.9 fL (7.4-10.4); Monocytes # (Auto) 0.4 K/mcL (0.1-0.9); Monocytes % (Auto) 5.1 % (1.0-12.0); Platelet Count 254 K/mcL (140-440); RBC 3.22 M/mcL (4.00-5.20); Red Cell Distribution Width 17.8 % (11.5-14.5); WBC 7.3 K/mcL (4.5-11.0)
[2019-02-06 00:16] LABS: Blood Urea Nitrogen 54 mg/dl (8-23); Calcium 8.3 mg/dl (8.6-10.4); Carbon Dioxide 22 mmol/L (22-30); Chloride 92 mmol/L (96-108); Glomerular Filtration Rate 45; Glucose 90 mg/dL (70-105)
[2019-02-06] MEDS: LACTATED RINGERS 1,000 ML IV SCH ×5 (00:32→21:02)
[2019-02-06] MEDS: 0.9 % SODIUM CHLORIDE 10 ML SYRINGE IV SCH ×3 (05:56→22:45)
[2019-02-06] MEDS: ESOMEPRAZOLE 40 MG VIAL IV SCH ×2 (08:01→21:02)
[2019-02-06] MEDS ORDERED: MIDAZOLAM 5 MG/5 ML VIAL IV ONE (09:05)
[2019-02-06] MEDS ORDERED: LIDOCAINE HCL/PF 100 MG/5 ML SYRINGE IV ONE (09:05)
[2019-02-06] MEDS ORDERED: ONDANSETRON 4 MG/2 ML VIAL IV ONE (09:05)
[2019-02-06] MEDS ORDERED: DEXAMETHASONE 10 MG/ML VIAL IV ONE (09:05)
[2019-02-06] MEDS ORDERED: PROPOFOL 200 MG/20 ML VIAL IV ONE (09:05)
[2019-02-06] MEDS ORDERED: EPINEPHrine 1 MG/ML AMPUL ONE (09:18)
[2019-02-06 09:19] LABS: Basophils # (Auto) 0 K/mcL (0.0-0.3); Basophils % (Auto) 0.2 % (0.0-2.0); Eosinophils # (Auto) 0.2 K/mcL (0.0-0.7); Eosinophils % (Auto) 2.5 % (0.0-7.0); Granulocytes % (Auto) 73.8 % (38.0-78.0); Hematocrit 28.5 % (36.0-48.0); Hemoglobin 9.3 g/dL (12.0-15.0); Lymphocytes # (Auto) 1.1 K/mcL (1.5-4.8); Lymphocytes % (Auto) 17.1 % (15.5-49.0); Mean Cell Volume 85.3 fL (80.0-100.0); Mean Corpuscular HGB Conc 32.7 g/dL (31.0-36.0); Monocytes # (Auto) 0.4 K/mcL (0.1-0.9); Monocytes % (Auto) 6.4 % (1.0-12.0); Platelet Count 254 K/mcL (140-440); RBC 3.34 M/mcL (4.00-5.20); Red Cell Distribution Width 17.7 % (11.5-14.5); WBC 6.3 K/mcL (4.5-11.0)
[2019-02-06] MEDS ORDERED: EPINEPHrine 1 MG/ML AMPUL IJ ONE ×2 (09:25→09:36)
[2019-02-06 09:36] LABS: Blood Urea Nitrogen 48 mg/dl (8-23); Calcium 8.4 mg/dl (8.6-10.4); Carbon Dioxide 22 mmol/L (22-30); Chloride 92 mmol/L (96-108); Glomerular Filtration Rate 56; Glucose 78 mg/dL (70-105)
[2019-02-06] MEDS ORDERED: ONDANSETRON 4 MG/2 ML VIAL IV PRN ×2 (10:01→11:29)
[2019-02-06] MEDS ORDERED: fentaNYL 100 MCG/2 ML VIAL IV PRN (10:01)
[2019-02-06] MEDS ORDERED: LACTATED RINGERS 250 ML IV PRN (10:01)
[2019-02-06] MEDS ORDERED: IPRATROPIUM/ALBUTEROL 3 ML AMPUL.NEB NEB PRN (10:01)
[2019-02-06] MEDS ORDERED: FLUMAZENIL 0.1 MG/ML ML IV PRN (10:01)
[2019-02-06] MEDS ORDERED: NALOXONE HCL 0.4 MG/ML VIAL IV PRN (10:01)
[2019-02-06] MEDS ORDERED: BENZOCAINE/MENTHOL 1 LOZENGE PO PRN (10:01)
[2019-02-06] MEDS ORDERED: MEPERIDINE 25 MG/ML SYRINGE IV PRN (10:01)
[2019-02-06] MEDS ORDERED: PROMETHAZINE 25 MG/ML VIAL IV PRN (10:01)
--- NOTE | 2019-02-06 10:08 | Brief Operative Note ---
Date of procedure: 02/06/19 Pre-op diagnosis: UPPER G I BLEEDING Post-op diagnosis: other (DUODENAL AVM OR ANGIODYSPLASIA) Procedure: EGD WITH EPINEPHRINE INJECTION AND HEATER PROBE TREATMENT Grafts/Implants: No Anesthesia: GETA Findings: MULTIPLE AREA OF SMALL SUBMUCOSAL VASCULAR MALFORMATIONS IN DUODENAL BULB WITH OLD BLOOD IN 2ND PORTION OF DUODENUM Complications: none Surgeon: Adrian Tovar Specimens Removed/Pathology: none sent Condition: stable Disposition: PACU
[2019-02-06] MEDS ORDERED: LACTATED RINGERS 1,000 ML IV SCH (10:15)
[2019-02-06] MEDS ORDERED: ACETAMINOPHEN 325 MG TABLET PO PRN (11:29)
[2019-02-06] MEDS: SUCRALFATE 1 GM TABLET PO SCH ×3 (15:02→21:02)
--- NOTE | 2019-02-06 21:50 | Internal Med Progress Note ---
Medical - PN: Subj Patient information: Note initiated : 02/06/19 at 9:48 pm Service Date, if different from initiated Date: [] Patient: Shahnaz Rutledge a 73 y/o F admitted on 02/05/19 for Worried about vitals. Chief Complaint: Follow-up GI bleed and anemia Interval history: Ms. Rutledge is a 73 year old F with a history of GI bleed, most recently with endoscopy in November of this year, history of pacemaker and mitral valve repair, type 2 diabetes, atrial fibrillation with history of ablation who presents to the emergency department early this morning with nonspecific complaints. Patient complains of not having energy, cannot sleep well last night. She was fretting that this could be related to her heart for some reason. She denied any chest pain. She has noted some dyspnea. She is also felt anxious and felt that "something is wrong". She said no nausea or vomiting, no diarrhea, no abdominal pain. She had no hematemesis. Her stools are chronically black, but they have not become tarry, no maroon stools. No lightheadedness, no presyncope. Patient notes that her blood pressure is been low normal since her last hospitalization. She did develop some foot and ankle edema while ago and was prescribed furosemide which she has taken. She is tapered down on the furosemide and is been trying to drink more fluid in the past week. In the emergency department, blood pressure was in the low normal range, she is not tachycardic. However laboratory evaluation revealed hemoglobin of 6.3 which it fallen from a recent reading of 8.4. Rectal exam was heme positive. Further labs showed acute renal failure with creatinine of 1.5 and hyperkalemia. She is being admitted to the hospital for further evaluation of anemia. Dr. Tovar will consult and perform EGD, as gastroenterology is not available this we ekend. 2patient underwent EGD this morning with findings of angiodysplasia and evidence of suspected bleeding. Treated with injection and cautery. Patient tolerated the procedure well. Received 2 units of packed red cells yesterday without problem. Currently on clear liquids. Seen at bedside with nursing and her . - Constitutional Vitals: Vital Signs Temp Pulse Resp BP Pulse Ox 97.7 F 110 H 16 128/92 99 02/06/19 20:03 02/06/19 20:03 02/06/19 20:03 02/06/19 20:03 02/06/19 20:03 Period Temp Pulse Resp BP Sys/Wade Pulse Ox Last 24 Hr 97.0 F-97.7 F 100-112 12-22 102-138/54-99 94-100 Intake and Output 02/06/19 02/06/19 02/06/19 05:59 13:59 21:59 Intake Total 1700 1000 Output Total 150 Balance 1550 1000 Intake & Output: Intake & Output 02/06/19 02/06/19 02/06/19 05:59 13:59 21:59 Intake Total 1700 1000 Output Total 150 Balance 1550 1000 Intake: IV 1700 1000 Lactated Ringers 1,000 ml @ 100 1700 mls/hr IV .Q10H [facility] Rx#: [id number] Output: Void Amount 150 Other: Urine Appearance Clear Urine Color Pale Pale # Voids 2 1 1 Exam: General: Sleepy in bed, arousable Chest: Clear, unlabored Cardiovascular: Regular, no edema Abdomen: Soft, nontender Neuro: Sleepy, arouses, moves all extremities. Medical - PN: Obj Da - Labs CBC & Chem 7: 02/06/19 08:30 02/06/19 08:30 Labs: Abnormal Lab Results 02/06/19 02/06/19 02/05/19 08:30 08:30 22:57 RBC 3.34 L Hgb 9.3 L Hct 28.5 L RDW 17.7 H MPV 7.0 L Lymph % (Auto) Lymph # (Auto) 1.1 L Sodium 125 L 126 L Potassium 5.4 H Chloride 92 L 92 L BUN 48 H 54 H Creatinine 1.2 H Glucose Calcium 8.4 L 8.3 L 02/05/19 02/05/19 02/05/19 22:57 06:53 06:53 RBC 3.22 L 2.37 L Hgb 9.0 L 6.3 L* Hct 27.6 L 19.6 L* RDW 17.8 H 16.7 H MPV 6.9 L 7.0 L Lymph % (Auto) 13.5 L Lymph # (Auto) 1.0 L 0.9 L Sodium 125 L Potassium 5.9 H* Chloride 90 L BUN 67 H Creatinine 1.5 H Glucose 121 H Calcium Meds: Medications Acetaminophen (Tylenol) 650 mg PO Q6HP PRN PRN Reason: PAIN/FEVER > 101 Esomeprazole Magnesium (Nexium) 40 mg IV BID [facility] Last Admin: 02/06/19 21:02 Dose: 40 mg Documented by: Lactated Ringer's (Lactated Ringers) 1,000 mls @ 100 mls/hr IV .Q10H [facility] Last Admin: 02/06/19 21:02 Dose: 100 mls/hr Documented by: Ondansetron HCl (Zofran) 4 mg IV Q4HP PRN PRN Reason: Nausea And Vomiting Sodium Chloride (Saline Flush) 10 ml IV Q8 [facility] Last Admin: 02/06/19 15:02 Dose: 10 ml Documented by: Sucralfate (Carafate) 1 gm PO QID [facility] Last Admin: 02/06/19 21:02 Dose: 1 gm Documented by: Medical - PN: A/P - Time Spent With Patient Total time spent is greater than 50% in coordination of care (as documented) at patient's floor/unit and/or counseling patient: 25 - 35 minutes (1) Anemia Status: Chronic Current Visit: No (2) Acute renal failure Status: Acute Current Visit: Yes (3) Hyperkalemia Status: Acute Current Visit: Yes (4) Type 2 diabetes mellitus Status: Acute Current Visit: Yes (5) Atrial fibrillation Status: Chronic Current Visit: No - Narrative A/P Narrative: 73-year-old female presents with nonspecific feelings of malaise, found to have critical anemia and acute renal failure. Anemia. Found with angiodysplasia and duodenum as well as old blood in the duodenum. Suspect slow GI bleed. Now status post 2 units of packed red blood cells and endoscopic injection and heater probe treatment of angiodysplasia. Plan: Clear liquid diet, will advance diet tomorrow. Continue to hold aspirin. Likely can transition away from PPI, given concerns for possible association with chronic kidney disease. Acute kidney injury on CKD stage II. Improving after transfusion. Suspect this is secondary to combination of diuretic use as well as her anemia. Hyperkalemia has resolved, suspected secondary to spironolactone therapy in add ition to her acute kidney injury. Plan: Continue to monitor labs, continue to hold spironolactone. Type 2 diabetes mellitus. Not insulin requiring. Is fairly well controlled in reviewing the chart. Plan: Hold metformin, sliding scale insulin. Hypertension. Patient on carvedilol, diltiazem and losartan. Some of that is for rate control with history of A. fib. Plan: Blood pressure still low normal, continuing to hold. Atrial fibrillation. Currently paced on her EKG. not on anticoagulation. Plan: Monitor, may need to resume rate controlling agents as pressure allows. CODE STATUS: Full code Prophylaxis: SCDs due to concern for GI hemorrhage.
[2019-02-07] MEDS: 0.9 % SODIUM CHLORIDE 10 ML SYRINGE IV SCH ×4 (05:38→21:35)
[2019-02-07 06:04] LABS: Basophils # (Auto) 0 K/mcL (0.0-0.3); Basophils % (Auto) 0.1 % (0.0-2.0); Eosinophils # (Auto) 0.1 K/mcL (0.0-0.7); Granulocytes % (Auto) 70.3 % (38.0-78.0); Hematocrit 26.7 % (36.0-48.0); Hemoglobin 8.8 g/dL (12.0-15.0); Lymphocytes # (Auto) 1.1 K/mcL (1.5-4.8); Lymphocytes % (Auto) 20.6 % (15.5-49.0); Mean Cell Volume 86.2 fL (80.0-100.0); Mean Platelet Volume 7.1 fL (7.4-10.4); Monocytes # (Auto) 0.4 K/mcL (0.1-0.9); Platelet Count 239 K/mcL (140-440); Red Cell Distribution Width 17.3 % (11.5-14.5); WBC 5.2 K/mcL (4.5-11.0)
[2019-02-07 06:17] LABS: Blood Urea Nitrogen 39 mg/dl (8-23); Calcium 8.5 mg/dl (8.6-10.4); Carbon Dioxide 22 mmol/L (22-30); Chloride 97 mmol/L (96-108); Glomerular Filtration Rate 64; Glucose 79 mg/dL (70-105)
[2019-02-07] MEDS: SUCRALFATE 1 GM TABLET PO SCH ×4 (09:16→21:00)
[2019-02-07] MEDS: LACTATED RINGERS 1,000 ML IV SCH ×2 (09:16→19:04)
[2019-02-07] MEDS: ESOMEPRAZOLE 40 MG VIAL IV SCH ×2 (09:16→19:37)
--- NOTE | 2019-02-07 11:37 | Internal Med Progress Note ---
Medical - PN: Subj Patient information: Note initiated : 02/07/19 at 11:34 am Service Date, if different from initiated Date: [] Patient: Shahnaz Rutledge a 73 y/o F admitted on 02/05/19 for Worried about vitals. Chief Complaint: Follow-up GI bleed Interval history: Ms. Rutledge is a 73 year old F with a history of GI bleed, most recently with endoscopy in November of this year, history of pacemaker and mitral valve repair, t ype 2 diabetes, atrial fibrillation with history of ablation who presents to the emergency department early this morning with nonspecific complaints. Patient complains of not having energy, cannot sleep well last night. She was fretting that this could be related to her heart for some reason. She denied any chest pain. She has noted some dyspnea. She is also felt anxious and felt that "something is wrong". She said no nausea or vomiting, no diarrhea, no abdominal pain. She had no hematemesis. Her stools are chronically black, but they have not become tarry, no maroon stools. No lightheadedness, no presyncope. Patient notes that her blood pressure is been low normal since her last h ospitalization. She did develop some foot and ankle edema while ago and was prescribed furosemide which she has taken. She is tapered down on the furosemide and is been trying to drink more fluid in the past week. In the emergency department, blood pressure was in the low normal range, she is not tachycardic. However laboratory evaluation revealed hemoglobin of 6.3 which it fallen from a recent reading of 8.4. Rectal exam was heme positive. Further labs showed acute renal failure with creatinine of 1.5 and hyperkalemia. She is being admitted to the hospital for further evaluation of anemia. Dr. Tovar will consult and perform EGD, as gastroenterology is not available this weekend. 92patient underwent EGD this morning with findings of angiodysplasia and evidence of suspected bleeding. Treated with injection and cautery. Patient tolerated the procedure well. Received 2 units of packed red cells yesterday without problem. Currently on clear liquids. Seen at bedside with nursing and her . 93patient doing well this morning. Tolerating full liquid diet. Hemoglobin has drifted down slightly, she is noted no blood in stools or tarry stools. There chronically black due to iron therapy. Continues with subclavian central line for IV access due to poor peripheral sites. - Constitutional Vitals: Vital Signs Temp Pulse Resp BP Pulse Ox 97.2 F 116 H 18 102/71 97 02/07/19 07:11 02/07/19 07:11 02/07/19 07:11 02/07/19 07:11 02/07/19 07:11 Period Temp Pulse Resp BP Sys/Wade Pulse Ox Last 24 Hr 97.1 F-97.7 F 104-116 16-20 102-132/54-99 96-100 Intake and Output 02/06/19 02/07/19 02/07/19 21:59 05:59 13:59 Intake Total 1000 1000 Balance 1000 1000 Weight 116 lb 8 oz Intake & Output: Intake & Output 02/06/19 02/07/19 02/07/19 21:59 05:59 13:59 Intake Total 1000 1000 Balance 1000 1000 Weight 116 lb 8 oz Intake: IV 1000 1000 Lactated Ringers 1,000 ml @ 100 1000 mls/hr IV .Q10H [facility] Rx#: [id number] Other: Urine Color Pale # Voids 1 2 Exam: General: Thin, frail, sitting up in chair eating breakfast Chest: Clear to auscultation Cardiovascular: Irregular, no edema Abdomen: Soft Neuro: Alert, oriented, no focal weakness Medical - PN: Obj Da - Labs CBC & Chem 7: 02/07/19 03:30 02/07/19 03:30 Labs: Abnormal Lab Results 02/07/19 02/07/19 02/06/19 03:30 03:30 08:30 RBC 3.10 L Hgb 8.8 L Hct 26.7 L RDW 17.3 H MPV 7.1 L Lymph % (Auto) Lymph # (Auto) 1.1 L Sodium 125 L Potassium Chloride 92 L BUN 39 H 48 H Creatinine Glucose Calcium 8.5 L 8.4 L 02/06/19 02/05/19 02/05/19 08:30 22:57 22:57 RBC 3.34 L 3.22 L Hgb 9.3 L 9.0 L Hct 28.5 L 27.6 L RDW 17.7 H 17.8 H MPV 7.0 L 6.9 L Lymph % (Auto) 13.5 L Lymph # (Auto) 1.1 L 1.0 L Sodium 126 L Potassium 5.4 H Chloride 92 L BUN 54 H Creatinine 1.2 H Glucose Calcium 8.3 L 02/05/19 02/05/19 06:53 06:53 RBC 2.37 L Hgb 6.3 L* Hct 19.6 L* RDW 16.7 H MPV 7.0 L Lymph % (Auto) Lymph # (Auto) 0.9 L Sodium 125 L Potassium 5.9 H* Chloride 90 L BUN 67 H Creatinine 1.5 H Glucose 121 H Calcium Meds: Medications Acetaminophen (Tylenol) 650 mg PO Q6HP PRN PRN Reason: PAIN/FEVER > 101 Esomeprazole Magnesium (Nexium) 40 mg IV BID [facility] Last Admin: 02/07/19 09:16 Dose: 40 mg Documented by: Lactated Ringer's (Lactated Ringers) 1,000 mls @ 100 mls/hr IV .Q10H [facility] Last Admin: 02/07/19 09:16 Dose: 100 mls/hr Documented by: Ondansetron HCl (Zofran) 4 mg IV Q4HP PRN PRN Reason: Nausea And Vomiting Sodium Chloride (Saline Flush) 10 ml IV Q8 [facility] Last Admin: 02/07/19 05:38 Dose: 10 ml Documented by: Sucralfate (Carafate) 1 gm PO QID [facility] Last Admin: 02/07/19 09:16 Dose: 1 gm Documented by: Medical - PN: A/P - Time Spent With Patient Total time spent is greater than 50% in coordination of care (as documented) at patient's floor/unit and/or counseling patient: 25 - 35 minutes (1) Anemia Status: Chronic Current Visit: No (2) Acute renal failure Status: Acute Current Visit: Yes (3) Hyperkalemia Status: Acute Current Visit: Yes (4) Type 2 diabetes mellitus Status: Acute Current Visit: Yes (5) Atrial fibrillation Status: Chronic Current Visit: No - Narrative A/P Narrative: 73-year-old female presents with nonspecific feelings of malaise, found to have critical anemia and acute renal failure. Anemia. Found with angiodysplasia and duodenum as well as old blood in the duodenum. Suspect slow GI bleed. Now status post 2 units of packed red blood cells and endoscopic injection and heater probe treatment of angiodysplasia. Plan: Full liquid diet. Continue to hold aspirin. Likely can transition away from PPI at discharge, given concerns for possible association with chronic kidney disease. Acute kidney injury on CKD stage II. Continues to improve after transfusion. Suspect this is secondary to combination of diuretic use as well as her anemia. Hyperkalemia has resolved, suspected secondary to spironolactone therapy in addition to her acute kidney injury. Plan: Continue to monitor labs, continue to hold spironolactone, suspect should be able to started discharge once renal function normalized. Type 2 diabetes mellitus. Not insulin requiring. Is fairly well controlled in reviewing the chart. Plan: Hold metformin, sliding scale insulin. Hypertension. Patient on carvedilol, diltiazem and losartan. Some of that is for rate control with history of A. fib. Plan: Blood pressure still low normal, continuing to hold. Atrial fibrillation. Currently paced on her EKG. not on anticoagulation. Plan: Resume carvedilol. Disposition: Likely home tomorrow if remains stable. May need more frequent lab draws to monitor for worsening anemia and outpatient transfusion. Likely will continue to have slow GI blood loss from angiodysplasia. With poor IV access, may need a Port-A-Cath. CODE STATUS: Full code Prophylaxis: SCDs due to concern for GI hemorrhage.
[2019-02-07] MEDS ORDERED: CARVEDILOL 12.5 MG TABLET PO ONE (11:42)
--- NOTE | 2019-02-07 15:05 | General Surgery Progress Note ---
Subjective Patient reports: feels better, tolerating liquids well, flatus, bowel movement, afebrile Narrative: Note initiated : 02/07/19 at 3:02 pm Service Date, if different from initiated Date: [] Patient: Shahnza Rutledge 73 y/o F admitted on 02/05/19 for Worried about vitals. Chief Complaint: [patient is stable. She has tolerated liquids without difficulty. She was passing flatus and had a soft bowel movement. She has not had sandra melena or bright red bleeding. White blood count 5.2, hemoglobin 8.8, hematocrit 26.7, potass, BUN 39, creatinine 0.9.] Objective Temp Pulse Resp BP Pulse Ox 97.6 F 116 H 14 124/91 97 02/07/19 12:24 02/07/19 07:11 02/07/19 12:24 02/07/19 12:24 02/07/19 07:11 - Additional Data Intake & Output - Last 24 hours: Intake & Output 02/05/19 02/06/19 02/07/19 02/08/19 05:59 05:59 05:59 05:59 Intake Total 1650 2700 1000 Output Total 150 Balance 1650 2550 1000 Weight 117 lb 1.6 oz 116 lb 8 oz 116 lb 8 oz - General physical appearance well developed, well nourished, no distress - Eyes PERRL, normal ocular movement - ENT normal pinna, normal nares, normal mucosa, no hearing loss, no congestion - Neck no masses, no bruits, trachea midline, no lymphadenopathy, no venous distension - Respiratory normal expansion, normal respiratory effort, clear to auscultation - Cardiovascular Cardiovascular exam: Present: irregular rhythm, JVD, +S1, +S2, tachycardia - Abdomen non tender, bowel sounds - Integumentary no rash, no growths, no abnormal pigmentation - Neurologic normal coordination, normal sensation - Musculoskeletal normal gait, normal posture - Psychiatric oriented to time, oriented to person, oriented to place, speech is normal, memory intact - Labs 02/07/19 03:30 02/07/19 03:30 Diabetes panel 02/07/19 Range/Units 03:30 Sodium 133 (133-145) mmol/L Potassium 4.9 (3.3-5.1) mmol/L Chloride 97 (96-108) mmol/L Carbon Dioxide 22 (22-30) mmol/L BUN 39 H (8-23) mg/dl Creatinine 0.9 (0.6-1.1) mg/dl Glucose 79 (70-105) mg/dL Calcium 8.5 L (8.6-10.4) mg/dl Calcium panel 02/07/19 Range/Units 03:30 Calcium 8.5 L (8.6-10.4) mg/dl Pituitary panel 02/07/19 Range/Units 03:30 Sodium 133 (133-145) mmol/L Potassium 4.9 (3.3-5.1) mmol/L Chloride 97 (96-108) mmol/L Carbon Dioxide 22 (22-30) mmol/L BUN 39 H (8-23) mg/dl Creatinine 0.9 (0.6-1.1) mg/dl Glucose 79 (70-105) mg/dL Calcium 8.5 L (8.6-10.4) mg/dl Adrenal panel 02/07/19 Range/Units 03:30 Sodium 133 (133-145) mmol/L Potassium 4.9 (3.3-5.1) mmol/L Chloride 97 (96-108) mmol/L Carbon Dioxide 22 (22-30) mmol/L BUN 39 H (8-23) mg/dl Creatinine 0.9 (0.6-1.1) mg/dl Glucose 79 (70-105) mg/dL Calcium 8.5 L (8.6-10.4) mg/dl Assessment and Plan (1) Gastrointestinal bleeding Status: Acute Assessment and plan: Patient is stable without evidence of ongoing bleeding Diet will be advanced to a soft diet Current Visit: Yes (2) Atrial fibrillation Status: Chronic Current Visit: No (3) Benign essential hypertension Status: Chronic Assessment and plan: Carvedilol has been reinstituted because of tachycardia Current Visit: No (4) Carcinoma of female breast Status: Chronic Current Visit: No (5) Cardiac pacemaker in situ Status: Chronic Current Visit: No (6) History of endocarditis Status: Chronic Current Visit: No (7) Iron deficiency anemia, unspecified Status: Chronic Current Visit: No - Time Spent With Patient Total time spent is greater than 50% in coordination of care (as documented) at patient's floor/unit and/or counseling patient:
[2019-02-07] MEDS: CARVEDILOL 12.5 MG TABLET PO SCH (19:37)
[2019-02-08] MEDS: 0.9 % SODIUM CHLORIDE 10 ML SYRINGE IV SCH ×4 (04:45→21:31)
[2019-02-08] MEDS: LACTATED RINGERS 1,000 ML IV SCH ×2 (04:58→13:19)
[2019-02-08 06:52] LABS: Basophils # (Auto) 0 K/mcL (0.0-0.3); Basophils % (Auto) 0.4 % (0.0-2.0); Eosinophils # (Auto) 0.1 K/mcL (0.0-0.7); Eosinophils % (Auto) 1.2 % (0.0-7.0); Granulocytes % (Auto) 82.7 % (38.0-78.0); Hematocrit 28.7 % (36.0-48.0); Hemoglobin 9.5 g/dL (12.0-15.0); Lymphocytes # (Auto) 0.9 K/mcL (1.5-4.8); Lymphocytes % (Auto) 11.1 % (15.5-49.0); Mean Cell Volume 85.7 fL (80.0-100.0); Mean Corpuscular HGB Conc 33.1 g/dL (31.0-36.0); Mean Platelet Volume 7.2 fL (7.4-10.4); Monocytes # (Auto) 0.4 K/mcL (0.1-0.9); Monocytes % (Auto) 4.6 % (1.0-12.0); Platelet Count 241 K/mcL (140-440); RBC 3.35 M/mcL (4.00-5.20); Red Cell Distribution Width 17.7 % (11.5-14.5); WBC 7.9 K/mcL (4.5-11.0)
[2019-02-08 07:09] LABS: Blood Urea Nitrogen 32 mg/dl (8-23); Calcium 8.9 mg/dl (8.6-10.4); Carbon Dioxide 21 mmol/L (22-30); Chloride 96 mmol/L (96-108); Glomerular Filtration Rate 64; Glucose 112 mg/dL (70-105)
[2019-02-08] MEDS: ESOMEPRAZOLE 40 MG VIAL IV SCH (08:40)
[2019-02-08] MEDS: MAGNESIUM OXIDE 400 MG TABLET PO SCH (08:40)
[2019-02-08] MEDS: CARVEDILOL 12.5 MG TABLET PO SCH ×2 (08:40→20:45)
[2019-02-08] MEDS: SUCRALFATE 1 GM TABLET PO SCH ×4 (08:41→20:45)
--- NOTE | 2019-02-08 09:51 | Internal Med Progress Note ---
Medical - PN: Subj Patient information: Note initiated : 02/08/19 at 9:48 am Service Date, if different from initiated Date: [] Patient: Shahnaz Rutledge a 73 y/o F admitted on 02/05/19 for Worried about vitals. Chief Complaint: [] Interval history: Ms. Rutledge is a 73 year old F with a history of GI bleed, most recently with endoscopy in November of this year, history of pacemaker and mitral valve repair, type 2 diabetes, atrial fibrillation with history of ablation who presents to the emergency department early this morning with nonspecific complaints. Patient complains of not having energy, cannot sleep well last night. She was fretting that this could be related to her heart for some reason. She denied any chest pain. She has noted some dyspnea. She is also felt anxious and felt that "something is wrong". She said no nausea or vomiting, no diarrhea, no abdominal pain. She had no hematemesis. Her stools are chronically black, but they have not become tarry, no maroon stools. No lightheadedness, no pr esyncope. Patient notes that her blood pressure is been low normal since her last hospitalization. She did develop some foot and ankle edema while ago and was prescribed furosemide which she has taken. She is tapered down on the furosemide and is been trying to drink more fluid in the past week. In the emergency department, blood pressure was in the low normal range, she is not tachycardic. However laboratory evaluation revealed hemoglobin of 6.3 which it fallen from a recent reading of 8.4. Rectal exam was heme positive. Further labs showed acute renal failure with creatinine of 1.5 and hyperkalemia. She is being admitted to the hospital for further evaluation of anemia. Dr. Tovar will consult and perform EGD, as gastroenterology is not available this weekend. 2patient underwent EGD this morning with findings of angiodysplasia and evidence of suspected bleeding. Treated with injection and cautery. Patient tolerated the procedure well. Received 2 units of packed red cells yesterday without problem. Currently on clear liquids. Seen at bedside with nursing and her . 3patient doing well this morning. Tolerating full liquid diet. Hemoglobin has drifted down slightly, she is noted no blood in stools or tarry stools. There chronically black due to iron therapy. Continues with subclavian central line for IV access due to poor peripheral sites. 02/08-hemoglobin stable at 9.5. No further bleed. ID on 120. He is chest palpitation without pain. No lightheadedness dizziness. Tolerating diet. On IV PPI twice daily. Position to oral PPI. Hemodynamic stable. No overnight fever chills. - Constitutional Vitals: Vital Signs Temp Pulse Resp BP Pulse Ox 97.8 F 122 H 14 119/86 100 02/08/19 00:00 02/08/19 04:00 02/08/19 04:00 02/08/19 04:00 02/08/19 04:00 Period Temp Pulse Resp BP Sys/Wade Pulse Ox Last 24 Hr 97.6 F-97.8 F 120-122 14-20 111-126/84-91 97-100 Intake and Output 02/07/19 02/08/19 02/08/19 21:59 05:59 13:59 Intake Total 1180 990 Balance 1180 990 Weight 127 lb 1.6 oz Intake & Output: Intake & Output 02/07/19 02/08/19 02/08/19 21:59 05:59 13:59 Intake Total 1180 990 Balance 1180 990 Weight 127 lb 1.6 oz Intake: IV 980 990 Lactated Ringers 1,000 ml @ 100 980 990 mls/hr IV .Q10H [facility] Rx#: [id number] Oral 200 Other: # Voids 1 General appearance: no acute distress Exam: Alert oriented Nonlabored breathing Anxiety Tachycardia on telemetry S1-S2, pansystolic murmur grade 3 Medical - PN: Obj Da - Labs CBC & Chem 7: 02/08/19 04:00 02/08/19 04:00 Labs: Abnormal Lab Results 02/08/19 02/08/19 02/07/19 04:00 04:00 03:30 RBC 3.35 L Hgb 9.5 L Hct 28.7 L RDW 17.7 H MPV 7.2 L Gran % 82.7 H Lymph % (Auto) 11.1 L Lymph # (Auto) 0.9 L Sodium 132 L Potassium Chloride Carbon Dioxide 21 L BUN 32 H 39 H Creatinine Glucose 112 H Calcium 8.5 L 02/07/19 02/06/19 02/06/19 03:30 08:30 08:30 RBC 3.10 L 3.34 L Hgb 8.8 L 9.3 L Hct 26.7 L 28.5 L RDW 17.3 H 17.7 H MPV 7.1 L 7.0 L Gran % Lymph % (Auto) Lymph # (Auto) 1.1 L 1.1 L Sodium 125 L Potassium Chloride 92 L Carbon Dioxide BUN 48 H Creatinine Glucose Calcium 8.4 L 02/05/19 02/05/19 22:57 22:57 RBC 3.22 L Hgb 9.0 L Hct 27.6 L RDW 17.8 H MPV 6.9 L Gran % Lymph % (Auto) 13.5 L Lymph # (Auto) 1.0 L Sodium 126 L Potassium 5.4 H Chloride 92 L Carbon Dioxide BUN 54 H Creatinine 1.2 H Glucose Calcium 8.3 L Meds: Medications Acetaminophen (Tylenol) 650 mg PO Q6HP PRN PRN Reason: PAIN/FEVER > 101 Carvedilol (Coreg) 12.5 mg PO BID [facility] Last Admin: 02/08/19 08:40 Dose: 12.5 mg Documented by: Esomeprazole Magnesium (Nexium) 40 mg IV BID [facility] Last Admin: 02/08/19 08:40 Dose: 40 mg Documented by: Lactated Ringer's (Lactated Ringers) 1,000 mls @ 100 mls/hr IV .Q10H [facility] Last Admin: 02/08/19 04:58 Dose: 100 mls/hr Documented by: Magnesium Oxide (Magnesium Oxide) 400 mg PO DAILY [facility] Last Admin: 02/08/19 08:40 Dose: 400 mg Documented by: Ondansetron HCl (Zofran) 4 mg IV Q4HP PRN PRN Reason: Nausea And Vomiting Sodium Chloride (Saline Flush) 10 ml IV Q8 [facility] Last Admin: 02/08/19 08:42 Dose: 10 ml Documented by: Sucralfate (Carafate) 1 gm PO QID [facility] Last Admin: 02/08/19 08:41 Dose: 1 gm Documented by: Medical - PN: A/P - Time Spent With Patient Total time spent is greater than 50% in coordination of care (as documented) at patient's floor/unit and/or counseling patient: 25 - 35 minutes - Narrative A/P Narrative: 73-year-old female presents with nonspecific feelings of malaise, found to have critical anemia and acute renal failure. * Acute blood loss anemia. Hemoglobin improved from 6.5-9.5. Secondary to angiodysplasia and duodenum as well as old blood in the duodenum. Status post upper endoscopy. Continue IV PPI. Status post 2 units PRBC. Advance diet as tolerated, continue holding ASA * STEFANY secondary to volume depletion. Improved with holding diuretics/crystalloids/PRBC. Improved renal function. * Hyperkalemia resolved. Spironolactone on hold. Restart on discharge. * Type 2 diabetes mellitus. Restart metformin 24 hours, sliding scale insulin. * Hypertension. Patient on carvedilol, diltiazem and losartan. * History of A. fib continue Coreg, not on anticoagulation light of GI bleed * Full code * Prophylaxis SCD Plan * Possible discharge 24 hours * transition to oral PPI * Monitor hemoglobin * PT OT/nutrition support
--- NOTE | 2019-02-08 14:28 | General Surgery Progress Note ---
Subjective Patient reports: feels better, tolerating a regular diet, flatus, bowel movement, diarrhea, afebrile Narrative: Note initiated : 02/08/19 at 2:26 pm Service Date, if different from initiated Date: [] Patient: Shahnaz Rutledge 73 y/o F admitted on 02/05/19 for Worried about vitals. Chief Complaint: [patient is doing well. She has mild tachycardia with heart rate in the 120s. She does not have any shortness of breath. She has had bowel movements which are brown without evidence of blood. She denies abdominal pain. White count 7.9, hemoglobin 9.5, BUN 32, creatinine 0.9.] Objective Temp Pulse Resp BP Pulse Ox 97.9 F 123 H 16 117/69 98 02/08/19 12:35 02/08/19 08:00 02/08/19 12:35 02/08/19 12:35 02/08/19 12:35 - Additional Data Intake & Output - Last 24 hours: Intake & Output 02/06/19 02/07/19 02/08/19 02/09/19 05:59 05:59 05:59 05:59 Intake Total 1650 2700 3170 835 Output Total 150 Balance 1650 2550 3170 835 Weight 117 lb 1.6 oz 116 lb 8 oz 127 lb 1.6 oz - General physical appearance well developed, well nourished, no distress - Eyes PERRL, normal ocular movement - ENT normal pinna, normal nares, normal mucosa, no hearing loss, no congestion - Neck no masses, no bruits, trachea midline, no lymphadenopathy, no venous distension - Respiratory normal expansion, normal respiratory effort, clear to auscultation - Cardiovascular Cardiovascular exam: Present: normal rate and rhythm, irregular rhythm, JVD, +S1 , +S2, tachycardia - Abdomen non tender (abdominal exam is benign), bowel sounds (present), surgical scars (none), masses (none) - Integumentary no rash, no growths, no abnormal pigmentation - Neurologic normal coordination, normal sensation - Musculoskeletal normal gait, normal posture - Psychiatric oriented to time, oriented to person, oriented to place, speech is normal, memory intact - Labs 02/08/19 04:00 02/08/19 04:00 Diabetes panel 02/08/19 Range/Units 04:00 Sodium 132 L (133-145) mmol/L Potassium 4.6 (3.3-5.1) mmol/L Chloride 96 (96-108) mmol/L Carbon Dioxide 21 L (22-30) mmol/L BUN 32 H (8-23) mg/dl Creatinine 0.9 (0.6-1.1) mg/dl Glucose 112 H (70-105) mg/dL Calcium 8.9 (8.6-10.4) mg/dl Calcium panel 02/08/19 Range/Units 04:00 Calcium 8.9 (8.6-10.4) mg/dl Pituitary panel 02/08/19 Range/Units 04:00 Sodium 132 L (133-145) mmol/L Potassium 4.6 (3.3-5.1) mmol/L Chloride 96 (96-108) mmol/L Carbon Dioxide 21 L (22-30) mmol/L BUN 32 H (8-23) mg/dl Creatinine 0.9 (0.6-1.1) mg/dl Glucose 112 H (70-105) mg/dL Calcium 8.9 (8.6-10.4) mg/dl Adrenal panel 02/08/19 Range/Units 04:00 Sodium 132 L (133-145) mmol/L Potassium 4.6 (3.3-5.1) mmol/L Chloride 96 (96-108) mmol/L Carbon Dioxide 21 L (22-30) mmol/L BUN 32 H (8-23) mg/dl Creatinine 0.9 (0.6-1.1) mg/dl Glucose 112 H (70-105) mg/dL Calcium 8.9 (8.6-10.4) mg/dl Assessment and Plan (1) Gastrointestinal bleeding Status: Acute Assessment and plan: Patient is stable without evidence of ongoing bleeding Diet will be advanced to a soft diet Current Visit: Yes (2) Atrial fibrillation Status: Chronic Assessment and plan: Patient is clinically stable except for tachycardia Current Visit: No (3) Benign essential hypertension Status: Chronic Assessment and plan: Carvedilol has been reinstituted because of tachycardia Current Visit: No (4) Carcinoma of female breast Status: Chronic Current Visit: No (5) Cardiac pacemaker in situ Status: Chronic Current Visit: No (6) History of endocarditis Status: Chronic Current Visit: No (7) Iron deficiency anemia, unspecified Status: Chronic Current Visit: No - Time Spent With Patient Total time spent is greater than 50% in coordination of care (as documented) at patient's floor/unit and/or counseling patient:
--- NOTE | 2019-02-08 16:17 | Operative Note ---
DATE OF OPERATION: 02/06/2019 PREOPERATIVE DIAGNOSIS: Upper GI bleeding. POSTOPERATIVE DIAGNOSIS: Duodenal AV malformation or angiodysplasia. PROCEDURE: Esophagogastroduodenoscopy with epinephrine injection for ablation of angiodysplasia and heater probe treatment. SURGEON: Adrian Tovar M.D. FINDINGS: Multiple areas of small submucosal vascular malformations in the duodenal bulb with old blood in the second portion of the duodenum. DESCRIPTION OF PROCEDURE: Under general anesthesia, the patient was turned to the left lateral decubitus position. She had been endotracheally intubated for safety. Bite block was placed. Scope was introduced through the bite block into the retropharynx and the esophagus. The esophagus was normal down to the GE junction. The stomach was basically normal except for small amount of old, dark blood. There was minimal inflammation of the gastric wall. Pylorus was unremarkable. In the duodenum, there was an area of confluence of very superficial submucosal vascular lesions. They did not look like the typical AVM, but probably represented angiodysplasia. Second and third portion of the duodenum were unremarkable except for small amount of old blood in the second portion. Scope was pulled back. The areas of the vascular malformation were injected with 4 mg of submucosal epinephrine. This consisted of 1 mg per 10 mL of saline. Multiple injections were carried out until all of the areas were thoroughly blanched. The entire area was then treated with heater probe to try to ablate the vessel. There was no bleeding. The patient tolerated the procedure well. Irrigation was carried out to make sure there was no bleeding. The scope was pulled back and the stomach was evacuated of air. The scope was then removed. The patient tolerated the procedure well. She was awakened, extubated, and transferred to the postanesthetic care unit in satisfactory condition. LCS:ant Job ID: [id number] Doc ID: [id number] Adrian Tovar M.D.
--- NOTE | 2019-02-08 16:22 | Procedure Note ---
DATE OF PROCEDURE: 02/05/2019 PREOPERATIVE DIAGNOSES: Severe anemia, GI bleeding. POSTOPERATIVE DIAGNOSES: Severe anemia, GI bleeding, inadequate venous access. PROCEDURE: Right subclavian central venous catheter placement. SURGEON: Adrian Tovar M.D. DESCRIPTION OF PROCEDURE: The patient was counseled for placement of the subclavian catheter under local anesthesia in the emergency room. After getting informed consent, her right neck was prepped and draped in the sterile field. The lateral third of the subclavicular area was locally infiltrated with 1% Xylocaine. Using a standard central venous catheter kit, the subclavian vein was accessed using the Seldinger technique after a single stick. The guidewire was placed and position was confirmed under fluoroscopic guidance. A small incision was made along the guidewire and the dilator was placed over the guidewire. After this was done, the catheter was placed over the guidewire and positioned in the superior vena cava. The guidewire was removed. The catheter was sutured in place using 2-0 Prolene. Tegaderm dressing was placed. The system was flushed with heparinized saline. The patient tolerated the procedure well. Followup chest x-ray confirmed adequate position and no pneumothorax. The patient tolerated the procedure well. LCS:ant Job ID: [id number] Doc ID: [id number] Adrian Tovar M.D.
[2019-02-08] MEDS ORDERED: DILTIAZEM 25 MG/5 ML VIAL IV ONE (16:51)
[2019-02-08] MEDS: PANTOPRAZOLE 40 MG TABLET PO SCH (17:16)
[2019-02-09 05:26] LABS: Basophils # (Auto) 0 K/mcL (0.0-0.3); Basophils % (Auto) 0.5 % (0.0-2.0); Eosinophils # (Auto) 0.1 K/mcL (0.0-0.7); Eosinophils % (Auto) 2.1 % (0.0-7.0); Granulocytes % (Auto) 71.1 % (38.0-78.0); Hematocrit 26.9 % (36.0-48.0); Hemoglobin 8.9 g/dL (12.0-15.0); Lymphocytes % (Auto) 20.3 % (15.5-49.0); Mean Cell Volume 86.3 fL (80.0-100.0); Mean Corpuscular HGB Conc 33.1 g/dL (31.0-36.0); Mean Platelet Volume 7.1 fL (7.4-10.4); Monocytes # (Auto) 0.3 K/mcL (0.1-0.9); Platelet Count 203 K/mcL (140-440); RBC 3.12 M/mcL (4.00-5.20); Red Cell Distribution Width 17.3 % (11.5-14.5); WBC 5.2 K/mcL (4.5-11.0)
[2019-02-09] MEDS: 0.9 % SODIUM CHLORIDE 10 ML SYRINGE IV SCH (05:41)
[2019-02-09 05:59] LABS: Blood Urea Nitrogen 22 mg/dl (8-23); Calcium 8.1 mg/dl (8.6-10.4); Carbon Dioxide 22 mmol/L (22-30); Chloride 99 mmol/L (96-108); Glomerular Filtration Rate 87; Glucose 117 mg/dL (70-105)
[2019-02-09] MEDS: SUCRALFATE 1 GM TABLET PO SCH ×2 (07:39→11:40)
[2019-02-09] MEDS: PANTOPRAZOLE 40 MG TABLET PO SCH (07:39)
[2019-02-09] MEDS: MAGNESIUM OXIDE 400 MG TABLET PO SCH (09:44)
[2019-02-09] MEDS: CARVEDILOL 12.5 MG TABLET PO SCH (09:45)
--- NOTE | 2019-02-09 12:36 | Discharge Summary ---
Medical - DS: Prov Patient information: Note initiated : 02/09/19 at 12:31 pm Service Date, if different from initiated Date: [] Patient: Shahnaz Rutledge 73 y/o F admitted on 02/05/19 for Worried about vitals. Chief Complaint: [] Date of admission: 02/05/19 14:10 Discharge date: 02/09/19 Primary care physician: Sandra Leger Consults: 02/05/19 Consult to Physician [CONS] Stat Comment: Consulting Provider: Marylou Lama Reason For Exam: Physician to Consult Consult to Physician [CONS] Stat Comment: Consulting Provider: Adrian Tovar Reason For Exam: Physician to Consult Medical - DS: Meds - Discharge Medications Prescriptions: Pantoprazole [Protonix] 40 mg PO BIDAC #60 tab Active and Home Medications: Home Medications blood sugar diagnostic strips See Dose Instructions .ROUTE QID 07/30/16 [History Confirmed 11/24/18 Last Taken Unknown] diltiazem ER 180 mg capsule,24 hr,extended release 180 mg PO QPM cap 07/30/16 [History Confirmed 02/05/19 Last Taken 02/04/19] losartan 100 mg tablet 100 mg PO QDAY 07/30/16 [History Confirmed 02/05/19 Last Taken 02/04/19] omega-3 fatty acids 1,000 mg capsule 1,000 mg PO BID cap 07/30/16 [History Confirmed 02/05/19 Last Taken 02/04/19] rosuvastatin 10 mg tablet 5 mg PO 3XW tab 07/30/16 [History Confirmed 02/05/19 Last Taken 02/03/19] cefuroxime axetil 250 mg tablet 250 mg PO Q12H 10/20/16 [History Confirmed 02/05/19 Last Taken 02/04/19] cholecalciferol (vitamin D3) 1,000 unit capsule 1,000 unit PO .QOD cap 10/20/16 [History Confirmed 02/05/19 Last Taken 02/03/19] cyanocobalamin (vit B-12) 1,000 mcg tablet 1,000 mcg PO QDAY 10/20/16 [History Confirmed 02/05/19 Last Taken 02/04/19] gemfibrozil 600 mg tablet 600 mg PO BID 30 Days #60 tab 10/20/16 [History Confirmed 02/05/19 Last Taken 02/04/19] magnesium oxide 500 mg tablet 500 mg PO QDAY 10/20/16 [History Confirmed 02/05/19 Last Taken 02/04/19] multivitamin,dm-adva-lfdzflrd tablet 1 tab PO QDAY 10/20/16 [History Confirmed 02/05/19 Last Taken 02/04/19] ascorbic acid (vitamin C) 500 mg tablet 500 mg PO BID tab 11/29/17 [History Confirmed 02/05/19 Last Taken 02/04/19] metformin 500 mg tablet 500 mg PO TID tab 11/29/17 [History Confirmed 02/05/19 Last Taken 02/04/19] Carvedilol [Coreg] 12.5 mg PO BID 11/23/18 [History Confirmed 02/05/19 Last Taken 02/04/19] Iron Ps Cmplx/Vit B12/FA [Iferex 150 Forte Capsule] 1 each PO BID 11/24/18 [History Confirmed 02/05/19 Last Taken 02/04/19] furosemide 20 mg tablet 40 - 60 mg PO BID 11/30/18 [History Confirmed 02/05/19 Last Taken 02/04/19] Spironolactone [Aldactone] 25 mg PO DAILY 02/05/19 [History Confirmed 02/05/19 Last Taken 02/04/19] Sucralfate [Carafate] 1 gm PO QID 02/05/19 [History Confirmed 02/05/19 Last Taken 02/04/19] Pantoprazole [Protonix] 40 mg PO BIDAC #60 tab 02/09/19 [Rx Last Taken Unknown] Medical - DS: Hosp Hospital Course: Discharge diagnosis * Acute blood loss anemia. Hemoglobin stabilized around 9. Secondary to angiodysplasia. Continue twice daily oral PPI/Carafate. Status post upper endoscopy and 2 units PRBC. Hold aspirin for at least 2 weeks until reevaluated by primary care physician * STEFANY secondary to volume depletion. Resolved, creatinine at 0.7 * Hyperkalemia resolved. Restart spironolactone on discharge. * Hyponatremia resolved. Sodium improved from 125-1 33 * Type 2 diabetes mellitus. Restart home medications * Hypertension. Continue home dose carvedilol, diltiazem and losartan. * History of A. fib/a flutter continue Coreg,/CCB. Heart rate around 120. Patient has scheduled follow-up with cardiology. Recommend holding aspirin for CVA prophylaxis for 2 weeks in light of recurrent GI bleed. PCP to reevaluate reinitiation if no further evidence of GI bleed Brief hospital course Ms. Rutledge is a 73 year old F with a history of GI bleed, most recently with endoscopy in November of this year, history of pacemaker and mitral valve repair, type 2 diabetes, atrial fibrillation with history of ablation who presents to the emergency department early this morning with nonspecific complaints. Patient complains of not having energy, cannot sleep well last night. She was fretting that this could be related to her heart for some reason. She denied any chest pain. She has noted some dyspnea. She is also felt anxious and felt that "something is wrong". She said no nausea or vomiting, no diarrhea, no abdominal pain. She had no hematemesis. Her stools are chronically black, but they have not become tarry, no maroon stools. No lightheadedness, no presyncop e. Patient notes that her blood pressure is been low normal since her last hospitalization. She did develop some foot and ankle edema while ago and was prescribed furosemide which she has taken. She is tapered down on the furosemide and is been trying to drink more fluid in the past week. In the emergency department, blood pressure was in the low normal range, she is not tachycardic. However laboratory evaluation revealed hemoglobin of 6.3 which it fallen from a recent reading of 8.4. Rectal exam was heme positive. Further labs showed acute renal failure with creatinine of 1.5 and hyperkalemia. She is being admitted to the hospital for further evaluation of anemia. Dr. Tovar will consult and perform EGD, as gastroenterology is not available this weekend. 2patient underwent EGD this morning with findings of angiodysplasia and evidence of suspected bleeding. Treated with injection and cautery. Patient tolerated the procedure well. Received 2 units of packed red cells yesterday without problem. Currently on clear liquids. Seen at bedside with nursing and her . 3patient doing well this morning. Tolerating full liquid diet. Hemoglobin has drifted down slightly, she is noted no blood in stools or tarry stools. There chronically black due to iron therapy. Continues with subclavian central line for IV access due to poor peripheral sites. 02/08-hemoglobin stable at 9.5. No further bleed. ID on 120. He is chest palpitation without pain. No lightheadedness dizziness. Tolerating diet. On IV PPI twice daily. Position to oral PPI. Hemodynamic stable. No overnight fever chills. 02/09-patient doing well. Tolerating diet. On oral PPI. Hemoglobin stable around 9. Rate controlled. Stable hemodynamics and vitals. Discharging home advised to follow-up with primary care physician/cardiology. Continue sucralfate/PPI as advised and hold aspirin at least for 2 weeks until safe to restart. Discharge diagnosis: . - Time Spent with Patient Total time spent providing and/or coordinating discharge services: Greater than 30 minutes Medical - DS: Exam - Constitutional Vitals: Vital Signs Temp Pulse Pulse Resp BP Pulse Ox 02/09/19 08:00 97.4 F 122 H 18 136/98 02/09/19 04:00 97.7 F 122 H 18 122/78 95 02/08/19 23:21 97.5 F 123 H 16 114/84 100 02/08/19 20:00 123 H 96 02/08/19 19:06 98.8 F 20 119/90 99 02/08/19 19:03 119/90 02/08/19 17:15 113/91 02/08/19 17:04 123 H 100 02/08/19 17:01 97.6 F 123 H 113/91 100 02/08/19 16:59 122 H 119/91 100 02/08/19 12:35 97.9 F 16 117/69 98 Intake and Output 02/08/19 02/09/19 02/09/19 21:59 05:59 13:59 Intake Total 240 Balance 240 Intake: Oral 240 Other: Meal Dinner Percent of Meal Consumed 100% Feeding Ability Independent Weight 129 lb 6.4 oz Medical - DS: Data Labs on day of discharge: Labs from last 24 hours 02/09/19 02/09/19 04:00 04:00 WBC 5.2 RBC 3.12 L Hgb 8.9 L Hct 26.9 L MCV 86.3 MCH 28.6 MCHC 33.1 RDW 17.3 H Plt Count 203 MPV 7.1 L Gran % 71.1 Lymph % (Auto) 20.3 Hart % (Auto) 6.0 Eos % (Auto) 2.1 Baso % (Auto) 0.5 Gran # 3.7 Lymph # (Auto) 1.0 L Hart # (Auto) 0.3 Eos # (Auto) 0.1 Baso # (Auto) 0 Sodium 133 Potassium 4.4 Chloride 99 Carbon Dioxide 22 Anion Gap 12.0 BUN 22 Creatinine 0.7 GFR Calculation 87 Glucose 117 H Calcium 8.1 L Medical - DS: A/P - Patient/Caregiver Discharge Instructions Activity: increase activity as tolerated Diet: Regular Diet Additional Instructions: Continue twice daily PPI/sucralfate Follow-up cardiology as scheduled Follow-up PCP in 5 to 7 days Hold aspirin for at least 2 weeks until deemed appropriate to restart by primary care physician if no evidence of further bleeding Return to ER if chest palpitations, lightheadedness dizziness or bleeding noted Prescriptions: Pantoprazole [Protonix] 40 mg PO BIDAC #60 tab - Follow up Plan Follow up with: Sandra Leger MD [Primary Care Provider] - 02/14/19 4:30 pm Adrian Tovar MD [Physician] - (If you have any further bleeding call to schedule an appointment.) Disposition: Home, Self-Care Care Plan Goals: This discharge packet is provided to you to help keep you informed about your care. We want to ensure you get everything you need when you go home. You will also be receiving a call from us in a few days to follow up with you and see how you are doing since your discharge. This gives us a chance to listen to any concerns you maybe experiencing since you were discharged or any additional needs you may have, as well as providing us feedback on your care experience. We strive to always provide excellent care and thank you for your feedback and for choosing [facility]. Prognosis: Good Rehab Potential: Fair I certify that the patient requires SNF services: No Overall status at discharge: patient is progressing back to baseline
== END 2019-02-09 14:25 | disposition home or self-care (01) | DRG 378 ==
LOC: ED 06:12 → ICU 14:10
PROVIDERS: ADMIT Internal Medicine; ATTEND Internal Medicine

== ENCOUNTER 2020-12-22 12:00 | Inpatient (IN) ==
--- NOTE | 2020-12-22 12:46 | Emergency Department Note ---
GI Bleed HPI <Reyes Jansen MD - Last Filed: 12/22/20 14:28> General Source: patient Mode of arrival: ambulatory Limitations: no limitations History of Present Illness HPI Narrative: 75-year-old female presents chief complaint of rectal bleeding. She has had bright blood blood per rectum for the last couple of days. She denies any abdominal pain denies any rectal pain. She does have a history of hemorrhoids. She had mitral valve replacement and tricuspid valve repair November 27 back to [facility]. Patient had pain in her chest and shortness of breath ever since the procedure which are unchanged. Denies any fevers or chills. Stools have also been a little bit loose. No vomiting no diarrhea. patient takes aspirin but does not take any other anticoagulants. Related Data Home Medications Medication Instructions Recorded Confirmed omega-3 fatty acids 1,000 mg 1,000 mg PO BID cap 07/30/16 12/22/20 capsule rosuvastatin 10 mg tablet 5 mg PO 3XW tab 07/30/16 12/22/20 cefuroxime axetil 250 mg tablet 250 mg PO Q12H 10/20/16 12/22/20 gemfibrozil 600 mg tablet 600 mg PO BID 30 Days #60 tab 10/20/16 12/22/20 multivitamin,uu-ybmk-fynndxij 1 tab PO QDAY 10/20/16 12/22/20 ascorbic acid (vitamin C) 500 mg 1,000 mg PO BID tab 11/29/17 12/22/20 tablet iron ps [id number] acid 1 each PO BID 11/24/18 12/22/20 furosemide 20 mg tablet 40 mg PO AC 11/30/18 12/22/20 cholecalciferol (vitamin D3) 25 25 mcg PO .QOD cap 11/14/19 12/22/20 mcg (1,000 unit) capsule metformin 500 mg tablet 500 mg PO BID tab 11/14/19 12/22/20 ipratropium bromide 2 spray INTRANASAL TID PRN 10/23/20 12/22/20 magnesium oxide 500 mg tablet 250 mg PO .6 DAYS A WEEK tab 10/23/20 12/22/20 acetaminophen 1,000 mg PO Q6H 12/22/20 12/22/20 carvedilol 3.125 mg PO BID 12/22/20 12/22/20 furosemide 20 mg PO QDAY 12/22/20 12/22/20 sodium bicarbonate 650 mg PO BID 12/22/20 12/22/20 tramadol 50 mg PO Q6H PRN 12/22/20 12/22/20 Previous Rx's Medication Instructions Recorded ondansetron 4 mg SL Q4-6HP PRN #5 tab 12/24/20 Allergies Allergy/AdvReac Type Severity Reaction Status Date / Time codeine Allergy Intermediate RESP Verified 12/22/20 12:03 DISTRESS dofetilide [From Tikosyn] Allergy Unknown unknown Verified 12/22/20 12:03 gabapentin Allergy Unknown unknown Verified 12/22/20 12:03 hydrocodone [HYDROCODONE] Allergy Unknown Unknown Verified 12/22/20 12:03 simvastatin Allergy Unknown Unknown Verified 12/22/20 12:03 atorvastatin AdvReac Intermediate JOINT AND Verified 12/22/20 12:03 MUSCLE ACHES sucralfate AdvReac Intermediate Itching Verified 12/22/20 12:03 metoprolol AdvReac Mild DIZZY AND Verified 12/22/20 12:03 SYNCOPE omeprazole AdvReac Abdominal Verified 12/22/20 12:03 Pain pantoprazole AdvReac Blurry Verified 12/22/20 12:03 Vision ranitidine [From Zantac] AdvReac Diarrhea Verified 12/22/20 12:03 Review of Systems <Reyes Jansen MD - Last Filed: 12/22/20 14:28> ROS ROS Narrative: Narrative: All systems ED: reviewed and negative except as stated. Constitutional: Denies fever, chills and sweats Eyes: Denies vision change Cardiovascular: Reports chest pain (Constant, chest wall) and dyspnea on exertion Respiratory: Reports shortness of breath Gastrointestinal: Reports hematochezia; Denies abdominal pain, vomiting and diarrhea Musculoskeletal: Denies back pain and joint pain Integumentary: Denies rash Neurological: Denies headache and dizziness Psychiatric: Denies anxiety, suicidal thoughts and homicidal thoughts Endocrine: Denies polydipsia and polyuria Hematological/Lymphatic: Denies easy bleeding and easy bruising PFSH <Reyes Jansen MD - Last Filed: 12/22/20 14:28> Narrative Patient History Narrative: Narrative: Medical/Surgical/Family History All Active Problems Rectal bleeding (Acute) EIC (epidermal inclusion cyst) (Acute) Acute renal failure (Acute) Hyperkalemia (Acute) Type 2 diabetes mellitus (Acute) 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) Impacted cerumen of both ears (Acute) Gastrointestinal bleeding (Acute) Chronic kidney disease, stage 2 (mild) (Chronic) Iron deficiency anemia, unspecified (Chronic) Persistent proteinuria (Chronic) Rash of hands (Chronic) Papules (Chronic) Microalbuminuria (Chronic) Trigger middle finger of right hand (Chronic) Colon polyposis (Chronic) Mitral regurgitation (Chronic) Atrial fibrillation (Chronic) Congestive heart failure (Chronic) Hyperlipidemia (Chronic) Abnormal mammogram (Chronic) Osteopenia (Chronic) History of endocarditis (Chronic) Eustachian tube dysfunction (Chronic) Benign essential hypertension (Chronic) Acute and subacute endocarditis, unspecified (Chronic) Carcinoma of female breast (Chronic) Anemia (Chronic) Cardiac pacemaker in situ (Chronic) Lymphocytopenia (Chronic) Chest pain (Chronic) Cardiac arrhythmia (Chronic) Medical History Abnormal mammogram Acute and subacute endocarditis, unspecified Anemia Atrial fibrillation Benign essential hypertension Carcinoma of female breast Cardiac arrhythmia Cardiac pacemaker in situ Chest pain Colon polyposis Congestive heart failure EIC (epidermal inclusion cyst) Eustachian tube dysfunction History of endocarditis Hyperlipidemia Lymphocytopenia Microalbuminuria Mitral regurgitation Osteopenia Papules Rash of hands Trigger middle finger of right hand Surgical History History of breast biopsy (03/14/03) History of cardiac radiofrequency ablation (02/14/02) History of colonoscopy (04/25/12) History of local excision of skin lesion (10/21/09) Skin tag clipped History of lumpectomy (04/02/03) History of mitral valve repair (02/14/02) Status post laser cataract surgery (06/15/14) Status post placement of cardiac pacemaker (02/21/07) Status post tendon repair (10/09/99) Incise finger tendon sheath Social History Smoking Status: Never smoker Alcohol Intake Frequency: does not drink Exam <Reyes Jansen MD - Last Filed: 12/22/20 14:28> Narrative Narrative: Vital Signs reviewed. Constitutional: Awake alert no acute distress well-nourished well-developed Head: Normocephalic, atraumatic Eyes: PERRLA, EOMI, no conjunctivitis Ear: Normal external ear exam Oropharynx: moist oral mucosa, no edema, no erythema, no exudate Neck: Supple, no lymphadenopathy, no JVD Lungs: Diminished breath sounds at the bases bilaterally Cardiac: Regular rate and rhythm, 3 out of 6 systolic murmur, normal distal pulses, GI: Soft nontender nondistended no guarding no rebound Rectal exam: After verbal consent, rectal exam was performed with RUY Haddad female RN as plant attendant and personal assistant. There was an external hemorrhoid and brown stool that did test positive for Hemoccult. Patient also had some more blood in the toilet as well. Musculoskeletal: No tenderness, no deformities, plus pitting edema bilateral full range of motion Back: no CVA or midline tenderness Neuro: Awake alert, cranial nerves II through XII grossly intact, no focal motor or sensory deficits Psychiatric: Normal mood and affect Skin: Warm dry no rash, cap refill less than 2 seconds General Limitations: no limitations Course <Reyes Jansen MD - Last Filed: 12/22/20 14:28> Course Course Narrative: Discussed ED findings and concern for lower GI bleed with patient. The patient and her would also like us to consider transfer to [facility] or at least consult with the patient's cardiothoracic surgeon Dr. Travis. rental clerk tool and equipment placed call to [facility] who stated they are not accepting any transfers at this time except for trauma or a STEMI. Will place a call to the patient's cardiothoracic surgeon to discuss case with him. Consultations Consultation #1: Case discussed with general surgeon, Dr. Hernandez who is agreeable to admitting the patient monitoring H&H and possible colonoscopy tomorrow as long as [facility] where she had mitral valve replacement 3 weeks ago does not want her to be transferred there for further evaluation and treatment. Time: 14:05 Consultation #2: Case discussed with cardiothoracic surgeon at [facility], Dr. Faustin, who remembers seeing the patient there and he stated there is no contraindications for the patient to undergo a colonoscopy and he feels the patient can safely be admitted to [facility] at this time. He also stated the patient can stop the aspirin at this time. Time: 14:16 Consultation #3: Discussed with general surgeon, Dr. Hernandez who agrees to meet patient for the evaluation of the lower GI bleed. Time: 14:25 Vital Signs Vital signs: Vital Signs Temperature 97.0 F 12/22/20 12:00 Pulse Rate 79 12/22/20 12:00 Respiratory Rate 16 12/22/20 12:00 Blood Pressure 135/62 12/22/20 12:00 Pulse Oximetry (%) 98 12/22/20 12:00 Temperature 97.8 F 12/24/20 15:53 Pulse Rate 70 12/24/20 15:53 Respiratory Rate 20 12/24/20 15:53 Blood Pressure 119/58 12/24/20 15:53 Pulse Oximetry (%) 94 12/24/20 15:53 <Casey Hernandez MD - Last Filed: 12/26/20 11:44> Vital Signs Vital signs: Vital Signs Temperature 97.0 F 12/22/20 12:00 Pulse Rate 79 12/22/20 12:00 Respiratory Rate 16 12/22/20 12:00 Blood Pressure 135/62 12/22/20 12:00 Pulse Oximetry (%) 98 12/22/20 12:00 Temperature 97.8 F 12/24/20 15:53 Pulse Rate 70 12/24/20 15:53 Respiratory Rate 20 12/24/20 15:53 Blood Pressure 119/58 12/24/20 15:53 Pulse Oximetry (%) 94 12/24/20 15:53 MDM <Reyes Jansen MD - Last Filed: 12/22/20 14:28> MDM Narrative Medical decision making narrative: 75-year-old female presents with 2 days of bright red blood per rectum. Does have a history of hemorrhoids. Patient underwent mitral valve replacement and tricuspid repair November 27 up to [facility]. Rectal exam was positive for Hemoccult blood there is external hemorrhoid noted. Hemoglobin today 7.9. Case discussed with cardiothoracic surgeon up at [facility] Dr. Faustin who stated the patient could be admitted here to [facility] and I did speak with Dr. Hernandez, general surgeon with agreeable to admitting the patient here for further evaluation of the lower GI bleeding. All findings discussed with the patient and the patient is agreeable. All questions answered. Differential Diagnosis Differential Diagnosis: Lower GI bleed, hemorrhoids, colitis Lab Data Result diagrams: 12/24/20 05:33 12/23/20 06:07 Labs: Lab Results 12/22/20 12/22/20 12/22/20 Range/Units 12:37 12:37 12:37 WBC 5.7 (4.5-11.0) K/mcL RBC 2.88 L (4.00-5.20) M/mcL Hgb 7.9 L (12.0-15.0) g/dL Hct 25.0 L (36.0-48.0) % MCV 86.8 (80.0-100.0) fL MCH 27.4 (26.0-34.0) pg MCHC 31.6 (31.0-36.0) g/dL RDW 16.4 H (11.5-14.5) % Plt Count 246 (140-440) K/mcL MPV 9.0 (7.4-10.4) fL Neut % (Auto) 77.9 (38.0-78.0) % Lymph % (Auto) 11.6 L (15.0-49.0) % [place] % (Auto) 8.2 (1.0-12.0) % Eos % (Auto) 1.6 (0.0-7.0) % Baso % (Auto) 0.7 (0.0-2.0) % Lymph # (Auto) 0.66 L (1.50-4.80) K/mcL [place] # (Auto) 0.47 (0.10-0.90) K/mcL Eos # (Auto) 0.09 (0.00-0.70) K/mcL Baso # (Auto) 0.04 (0.00-0.20) K/mcL Absolute Neutrophils 4.45 (1.80-8.00) K/mcL PT 15.1 H (11.9-14.5) sec INR 1.1 (0.9-1.1) APTT 39.2 H (20.0-37.0) sec Sodium 130 L (133-145) mmol/L Potassium 4.1 (3.3-5.1) mmol/L Chloride 93 L (96-108) mmol/L Carbon Dioxide 30 (22-30) mmol/L Anion Gap 7.0 L (8.0-16.0) BUN 16 (8-23) mg/dL Creatinine 0.7 (0.6-1.1) mg/dL GFR Calculation 85 Glucose 132 H (70-105) mg/dL Calcium 8.9 (8.6-10.4) mg/dL Total Bilirubin 0.5 (0.1-1.0) mg/dL AST 21 (<32) U/L ALT 7 (<40) U/L Alkaline Phosphatase 82 (39-117) U/L Total Protein 6.3 (5.9-8.4) gm/dL Albumin 3.6 (3.2-5.2) gm/dL Globulin 2.7 (2.2-3.7) gm/dL Albumin/Globulin Ratio 1.3 (1.0-2.3) <Casey Hernandez MD - Last Filed: 12/26/20 11:44> Lab Data Labs: Lab Results 12/22/20 12/22/20 12/22/20 Range/Units 12:37 12:37 12:37 WBC 5.7 (4.5-11.0) K/mcL RBC 2.88 L (4.00-5.20) M/mcL Hgb 7.9 L (12.0-15.0) g/dL Hct 25.0 L (36.0-48.0) % MCV 86.8 (80.0-100.0) fL MCH 27.4 (26.0-34.0) pg MCHC 31.6 (31.0-36.0) g/dL RDW 16.4 H (11.5-14.5) % Plt Count 246 (140-440) K/mcL MPV 9.0 (7.4-10.4) fL Neut % (Auto) 77.9 (38.0-78.0) % Lymph % (Auto) 11.6 L (15.0-49.0) % [place] % (Auto) 8.2 (1.0-12.0) % Eos % (Auto) 1.6 (0.0-7.0) % Baso % (Auto) 0.7 (0.0-2.0) % Lymph # (Auto) 0.66 L (1.50-4.80) K/mcL [place] # (Auto) 0.47 (0.10-0.90) K/mcL Eos # (Auto) 0.09 (0.00-0.70) K/mcL Baso # (Auto) 0.04 (0.00-0.20) K/mcL Absolute Neutrophils 4.45 (1.80-8.00) K/mcL PT 15.1 H (11.9-14.5) sec INR 1.1 (0.9-1.1) APTT 39.2 H (20.0-37.0) sec Sodium 130 L (133-145) mmol/L Potassium 4.1 (3.3-5.1) mmol/L Chloride 93 L (96-108) mmol/L Carbon Dioxide 30 (22-30) mmol/L Anion Gap 7.0 L (8.0-16.0) BUN 16 (8-23) mg/dL Creatinine 0.7 (0.6-1.1) mg/dL GFR Calculation 85 Glucose 132 H (70-105) mg/dL Calcium 8.9 (8.6-10.4) mg/dL Total Bilirubin 0.5 (0.1-1.0) mg/dL AST 21 (<32) U/L ALT 7 (<40) U/L Alkaline Phosphatase 82 (39-117) U/L Total Protein 6.3 (5.9-8.4) gm/dL Albumin 3.6 (3.2-5.2) gm/dL Globulin 2.7 (2.2-3.7) gm/dL Albumin/Globulin Ratio 1.3 (1.0-2.3) Discharge Plan Patient/Caregiver Discharge Instructions Pt seen by FOOD SAFETY MANAGER/PA only: No Clinical Impression: Rectal bleeding Activity: increase activity as tolerated Patient Disposition: Xfer As Outpt/Obs ([facility]) Condition: Good
[2020-12-22 13:33] LABS: Basophils # (Auto) 0.04 K/mcL (0.00-0.20); Basophils % (Auto) 0.7 % (0.0-2.0); Eosinophils # (Auto) 0.09 K/mcL (0.00-0.70); Eosinophils % (Auto) 1.6 % (0.0-7.0); Hemoglobin 7.9 g/dL (12.0-15.0); Lymphocytes # (Auto) 0.66 K/mcL (1.50-4.80); Lymphocytes % (Auto) 11.6 % (15.0-49.0); Mean Cell Volume 86.8 fL (80.0-100.0); Mean Corpuscular HGB Conc 31.6 g/dL (31.0-36.0); Monocytes # (Auto) 0.47 K/mcL (0.10-0.90); Monocytes % (Auto) 8.2 % (1.0-12.0); Neutrophils % (Auto) 77.9 % (38.0-78.0); Platelet Count 246 K/mcL (140-440); RBC 2.88 M/mcL (4.00-5.20); Red Cell Distribution Width 16.4 % (11.5-14.5); WBC 5.7 K/mcL (4.5-11.0)
[2020-12-22 13:43] LABS: ALT/SGPT 7 U/L (<40); AST/SGOT 21 U/L (<32); Albumin 3.6 gm/dL (3.2-5.2); Albumin/Globulin Ratio 1.3 (1.0-2.3); Alkaline Phosphatase 82 U/L (39-117); Bilirubin,Total 0.5 mg/dL (0.1-1.0); Blood Urea Nitrogen 16 mg/dL (8-23); Calcium 8.9 mg/dL (8.6-10.4); Carbon Dioxide 30 mmol/L (22-30); Chloride 93 mmol/L (96-108); Globulin 2.7 gm/dL (2.2-3.7); Glomerular Filtration Rate 85; Glucose 132 mg/dL (70-105)
[2020-12-22 13:44] LABS: INR 1.1 (0.9-1.1); Prothrombin Time 15.1 sec (11.9-14.5)
[2020-12-22 14:03] LABS: Partial Thromboplastin Time 39.2 sec (20.0-37.0)
[2020-12-22] MEDS ORDERED: ONDANSETRON 4 MG/2 ML VIAL IV PRN (15:35)
[2020-12-22] MEDS ORDERED: PEG 3350/NA SULF,BICARB,CL/KCL 4,000 ML ORAL.SOL PO ONE (16:09)
[2020-12-22] MEDS ORDERED: METOPROLOL TARTRATE 5 MG/5 ML VIAL IV PRN (16:15)
[2020-12-22] MEDS ORDERED: DEXTROSE 31 GM ORAL.SUSP PO PRN (16:16)
[2020-12-22] MEDS ORDERED: DEXTROSE 50% 50 ML VIAL IV PRN (16:16)
--- NOTE | 2020-12-22 16:18 | Internal Medicine Consult Note ---
HPI Data of Consult Consult date: 12/22/20 Primary Care Provider: Sandra Leger Consult Narrative cc:: CC: Patient presents to the ED with 3 days of bloody diarrhea and she describes bright red blood. She had a mitral valve and tricuspid valve repair in November at [place]. She has been on aspirin since that time. She was here in 2019 for GI bleed and was on aspirin at that time. She has not been on any anticoagulants for A. fib/flutter because of GI bleeding. Aspirin was held during that admission and it does not sound like it was resumed after that admission, she did see her channel development director. Aspirin was then since resumed after her procedure [place]. She denies any chest pain shortness of breath lightheadedness. She does have some nausea but no vomiting. Case discussed with Dr. Hernandez who performed EGD and colonoscopy likely. Aspirin stopped and the case was discussed with her cardiothoracic surgeon as well. She does have lower extremity edema which she says was much worse recently but Dr. Leger increased her diuretics and started improved. She says she does not tolerate compression stockings. Review of Systems: Pertinent positives as above denies headache/fever/chills/vomiting/chest or abdominal pain/cough/dyspnea. 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) Colon polyposis (Chronic) Mitral regurgitation (Chronic) Atrial fibrillation (Chronic) Congestive heart failure (Chronic) Hyperlipidemia (Chronic) Abnormal mammogram (Chronic) Osteopenia (Chronic) History of endocarditis (Chronic) Eustachian tube dysfunction (Chronic) Benign essential hypertension (Chronic) Acute and subacute endocarditis, unspecified (Chronic) Carcinoma of female breast (Chronic) Anemia (Chronic) Cardiac pacemaker in situ (Chronic) Lymphocytopenia (Chronic) Chest pain (Chronic) Cardiac arrhythmia (Chronic) Medical History Abnormal mammogram Acute and subacute endocarditis, unspecified Anemia Atrial fibrillation Benign essential hypertension Carcinoma of female breast Cardiac arrhythmia Cardiac pacemaker in situ Chest pain Colon polyposis Congestive heart failure EIC (epidermal inclusion cyst) Eustachian tube dysfunction History of endocarditis Hyperlipidemia Lymphocytopenia Microalbuminuria Mitral regurgitation Osteopenia Papules Rash of hands Trigger middle finger of right hand Surgical History History of breast biopsy (03/14/03) History of cardiac radiofrequency ablation (02/14/02) History of colonoscopy (04/25/12) History of local excision of skin lesion (10/21/09) Skin tag clipped History of lumpectomy (04/02/03) History of mitral valve repair (02/14/02) Status post laser cataract surgery (06/15/14) Status post placement of cardiac pacemaker (02/21/07) Status post tendon repair (10/09/99) Incise finger tendon sheath Social History marital status: alcohol intake frequency: does not drink MEDS/ALLERGIES Home Medications and Allergies Home Medications Medication Instructions Recorded Confirmed Type blood sugar diagnostic 07/30/16 10/28/20 History omega-3 fatty acids 1,000 mg 1,000 mg PO BID cap 07/30/16 12/22/20 History capsule rosuvastatin 10 mg tablet 5 mg PO 3XW tab 07/30/16 12/22/20 History cefuroxime axetil 250 mg tablet 250 mg PO Q12H 10/20/16 12/22/20 History gemfibrozil 600 mg tablet 600 mg PO BID 30 Days #60 tab 10/20/16 12/22/20 History multivitamin,qx-rymm-qpzondyj 1 tab PO QDAY 10/20/16 12/22/20 History ascorbic acid (vitamin C) 500 mg 1,000 mg PO BID tab 11/29/17 12/22/20 History tablet iron ps [id number]-U69-potua acid 1 each PO BID 11/24/18 12/22/20 History furosemide 20 mg tablet 40 mg PO AC 11/30/18 12/22/20 History cholecalciferol (vitamin D3) 25 25 mcg PO .QOD cap 11/14/19 12/22/20 History mcg (1,000 unit) capsule metformin 500 mg tablet 500 mg PO BID tab 11/14/19 12/22/20 History ipratropium bromide 2 spray INTRANASAL TID PRN 10/23/20 12/22/20 History magnesium oxide 500 mg tablet 250 mg PO .6 DAYS A WEEK tab 10/23/20 12/22/20 History acetaminophen 1,000 mg PO Q6H 12/22/20 12/22/20 History aspirin 81 mg PO QDAY 12/22/20 12/22/20 History carvedilol 3.125 mg PO BID 12/22/20 12/22/20 History furosemide 20 mg PO QDAY 12/22/20 12/22/20 History sodium bicarbonate [Antacid 650 mg PO BID 12/22/20 12/22/20 History (sodium bicarbonate)] tramadol 50 mg PO Q6H PRN 12/22/20 12/22/20 History Allergies Allergy/AdvReac Type Severity Reaction Status Date / Time codeine Allergy Intermediate RESP Verified 12/22/20 12:03 DISTRESS dofetilide [From Tikosyn] Allergy Unknown unknown Verified 12/22/20 12:03 gabapentin Allergy Unknown unknown Verified 12/22/20 12:03 hydrocodone [HYDROCODONE] Allergy Unknown Unknown Verified 12/22/20 12:03 simvastatin Allergy Unknown Unknown Verified 12/22/20 12:03 atorvastatin AdvReac Intermediate JOINT AND Verified 12/22/20 12:03 MUSCLE ACHES sucralfate AdvReac Intermediate Itching Verified 12/22/20 12:03 metoprolol AdvReac Mild DIZZY AND Verified 12/22/20 12:03 SYNCOPE omeprazole AdvReac Abdominal Verified 12/22/20 12:03 Pain pantoprazole AdvReac Blurry Verified 12/22/20 12:03 Vision ranitidine [From Zantac] AdvReac Diarrhea Verified 12/22/20 12:03 EXAM Constitutional Vitals: Temp Pulse Resp BP Pulse Ox 97.0 F 73 16 125/65 96 12/22/20 12:00 12/22/20 15:17 12/22/20 12:00 12/22/20 15:17 12/22/20 15:17 Exam: General: Alert, Awake, No acute Distress Eyes/N/T: EOMI, PERRL, Head/Neck: neck supple, normocephalic atraumatic CV: RRR, 2/6 SM, normal s1/s2 Pulm: Clear b/l, no wheezing/rhonchi/rales Abd: soft, nontender, +BS x4 Ext: no clubbing/cyanosis, 2-3+ edema Neuro: Alert, no focal deficits, moves all extremities, CN 2-12 grossly intact, symmetrical strength b/l upper/lower, sensations intact b/l upper/lower Skin: warm/dry DATA Data Completed and Pending Labs: Labs from last 24 hours 12/22/20 12/22/20 12/22/20 12:37 12:37 12:37 WBC 5.7 RBC 2.88 L Hgb 7.9 L Hct 25.0 L MCV 86.8 MCH 27.4 MCHC 31.6 RDW 16.4 H Plt Count 246 MPV 9.0 Neut % (Auto) 77.9 Lymph % (Auto) 11.6 L Luce % (Auto) 8.2 Eos % (Auto) 1.6 Baso % (Auto) 0.7 Lymph # (Auto) 0.66 L Luce # (Auto) 0.47 Eos # (Auto) 0.09 Baso # (Auto) 0.04 Absolute Neutrophils 4.45 PT 15.1 H INR 1.1 APTT 39.2 H Sodium 130 L Potassium 4.1 Chloride 93 L Carbon Dioxide 30 Anion Gap 7.0 L BUN 16 Creatinine 0.7 GFR Calculation 85 Glucose 132 H Calcium 8.9 Total Bilirubin 0.5 AST 21 ALT 7 Alkaline Phosphatase 82 Total Protein 6.3 Albumin 3.6 Globulin 2.7 Albumin/Globulin Ratio 1.3 A/P Narrative A/P Narrative: A: *GI bleed, BRBPR (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 ASA was restarted after this last cardiothoracic procedure *Hyponatremia, chronic: *HTN/HLD: *DM: *Peripheral edema: on lasix P: -Dr. Hernandez for endoscopy -ASA held, hold until outpt follow-up with cardio or depending on endoscopy findings -cont BB/lasix -SSI - -ppx: SCD Time Spent With Patient Time: Total time spent is greater than 50% in coordination of care (as documented) at patient's floor/unit and/or counseling patient:
[2020-12-22] MEDS: CARVEDILOL 3.125 MG TABLET PO SCH (18:41)
[2020-12-22] MEDS: LACTATED RINGERS 1,000 ML IV SCH (18:45)
[2020-12-22] MEDS: INSULIN LISPRO 1 UNIT/0.01 ML UNIT SQ SCH ×2 (18:58→21:28)
[2020-12-22] MEDS: 0.9 % SODIUM CHLORIDE 10 ML SYRINGE IV SCH (21:15)
[2020-12-22] MEDS: DOCUSATE SODIUM 100 MG CAPSULE PO SCH (21:28)
[2020-12-22] MEDS: SENNOSIDES 1 TABLET PO SCH (21:28)
[2020-12-23 00:04] LABS: Hematocrit 21.5 % (36.0-48.0)
[2020-12-23 00:07] LABS: Hemoglobin 6.7 g/dL (12.0-15.0)
[2020-12-23] MEDS ORDERED: 0.9 % SODIUM CHLORIDE 250 ML IV SCH (00:15)
[2020-12-23] MEDS: 0.9 % SODIUM CHLORIDE 10 ML SYRINGE IV SCH ×3 (06:35→21:20)
[2020-12-23] MEDS: LACTATED RINGERS 1,000 ML IV SCH ×2 (06:35→14:07)
[2020-12-23 06:53] LABS: Basophils # (Auto) 0.04 K/mcL (0.00-0.20); Basophils % (Auto) 0.8 % (0.0-2.0); Eosinophils # (Auto) 0.14 K/mcL (0.00-0.70); Eosinophils % (Auto) 2.8 % (0.0-7.0); Hematocrit 28.5 % (36.0-48.0); Hemoglobin 9.1 g/dL (12.0-15.0); Lymphocytes # (Auto) 0.83 K/mcL (1.50-4.80); Lymphocytes % (Auto) 16.8 % (15.0-49.0); Mean Cell Volume 88.8 fL (80.0-100.0); Mean Corpuscular HGB Conc 31.9 g/dL (31.0-36.0); Mean Platelet Volume 8.8 fL (7.4-10.4); Monocytes # (Auto) 0.41 K/mcL (0.10-0.90); Monocytes % (Auto) 8.3 % (1.0-12.0); Neutrophils % (Auto) 71.3 % (38.0-78.0); Platelet Count 230 K/mcL (140-440); RBC 3.21 M/mcL (4.00-5.20); Red Cell Distribution Width 15.8 % (11.5-14.5)
[2020-12-23] MEDS ORDERED: PROPOFOL 200 MG/20 ML VIAL IV SCH (07:15)
[2020-12-23] MEDS ORDERED: MIDAZOLAM 2 MG/2 ML VIAL IV SCH (07:15)
[2020-12-23] MEDS ORDERED: KETAMINE 50 MG/ML ML IV PRN (07:15)
[2020-12-23 07:22] LABS: Blood Urea Nitrogen 15 mg/dL (8-23); Calcium 8.3 mg/dL (8.6-10.4); Carbon Dioxide 26 mmol/L (22-30); Chloride 96 mmol/L (96-108); Glomerular Filtration Rate 73; Glucose 104 mg/dL (70-105)
--- NOTE | 2020-12-23 07:29 | General Surg History&Physical ---
HPI History of Present Illness Patient information: Note initiated : 12/23/20 at 7:25 am Service Date, if different from initiated Date: [12/23] Patient: Shahnaz Rutledge a 75 y/o F admitted on 12/22/20 for rectal bleeding. Chief Complaint: Bright red blood per rectum History of present illness: Ms. Rutledge is a 75 year old F with a significant past medical history of upper GI bleed and anemia. She has been scoped multiple times for anemia and found to have what appeared to be angiodysplasia of the duodenum. This has been injected and sclerosed at least once although she does report a another episode where she required an EGD with similar therapy in [place] that is not in her medical record. She presents with 1 day history of bright red blood per rectum, she is 3 weeks status post open heart surgery for mitral valve replacement. Attempts were made to return her to the hospital where she underwent her open heart surgery, however they denied excepting her due to number of beds. At this time she has no nausea vomiting fevers or chills she has no dizziness or difficulty with walking. 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) Colon polyposis (Chronic) Mitral regurgitation (Chronic) Atrial fibrillation (Chronic) Congestive heart failure (Chronic) Hyperlipidemia (Chronic) Abnormal mammogram (Chronic) Osteopenia (Chronic) History of endocarditis (Chronic) Eustachian tube dysfunction (Chronic) Benign essential hypertension (Chronic) Acute and subacute endocarditis, unspecified (Chronic) Carcinoma of female breast (Chronic) Anemia (Chronic) Cardiac pacemaker in situ (Chronic) Lymphocytopenia (Chronic) Chest pain (Chronic) Cardiac arrhythmia (Chronic) Medical History Abnormal mammogram Acute and subacute endocarditis, unspecified Anemia Atrial fibrillation Benign essential hypertension Carcinoma of female breast Cardiac arrhythmia Cardiac pacemaker in situ Chest pain Colon polyposis Congestive heart failure EIC (epidermal inclusion cyst) Eustachian tube dysfunction History of endocarditis Hyperlipidemia Lymphocytopenia Microalbuminuria Mitral regurgitation Osteopenia Papules Rash of hands Trigger middle finger of right hand Surgical History History of breast biopsy (03/14/03) History of cardiac radiofrequency ablation (02/14/02) History of colonoscopy (04/25/12) History of local excision of skin lesion (10/21/09) Skin tag clipped History of lumpectomy (04/02/03) History of mitral valve repair (02/14/02) Status post laser cataract surgery (06/15/14) Status post placement of cardiac pacemaker (02/21/07) Status post tendon repair (10/09/99) Incise finger tendon sheath Social History marital status: alcohol intake frequency: does not drink MEDS/ALLERGIES Home Medications and Allergies Home Medications Medication Instructions Recorded Confirmed Type omega-3 fatty acids 1,000 mg 1,000 mg PO BID cap 07/30/16 12/22/20 History capsule rosuvastatin 10 mg tablet 5 mg PO 3XW tab 07/30/16 12/22/20 History cefuroxime axetil 250 mg tablet 250 mg PO Q12H 10/20/16 12/22/20 History gemfibrozil 600 mg tablet 600 mg PO BID 30 Days #60 tab 10/20/16 12/22/20 History multivitamin,ve-rejc-xjdqkyba 1 tab PO QDAY 10/20/16 12/22/20 History ascorbic acid (vitamin C) 500 mg 1,000 mg PO BID tab 11/29/17 12/22/20 History tablet iron ps [id number]-dlico acid 1 each PO BID 11/24/18 12/22/20 History furosemide 20 mg tablet 40 mg PO AC 11/30/18 12/22/20 History cholecalciferol (vitamin D3) 25 25 mcg PO .QOD cap 11/14/19 12/22/20 History mcg (1,000 unit) capsule metformin 500 mg tablet 500 mg PO BID tab 11/14/19 12/22/20 History ipratropium bromide 2 spray INTRANASAL TID PRN 10/23/20 12/22/20 History magnesium oxide 500 mg tablet 250 mg PO .6 DAYS A WEEK tab 10/23/20 12/22/20 History acetaminophen 1,000 mg PO Q6H 12/22/20 12/22/20 History aspirin 81 mg PO QDAY 12/22/20 12/22/20 History carvedilol 3.125 mg PO BID 12/22/20 12/22/20 History furosemide 20 mg PO QDAY 12/22/20 12/22/20 History sodium bicarbonate [Antacid 650 mg PO BID 12/22/20 12/22/20 History (sodium bicarbonate)] tramadol 50 mg PO Q6H PRN 12/22/20 12/22/20 History Allergies Allergy/AdvReac Type Severity Reaction Status Date / Time codeine Allergy Intermediate RESP Verified 12/22/20 12:03 DISTRESS dofetilide [From Tikosyn] Allergy Unknown unknown Verified 12/22/20 12:03 gabapentin Allergy Unknown unknown Verified 12/22/20 12:03 hydrocodone [HYDROCODONE] Allergy Unknown Unknown Verified 12/22/20 12:03 simvastatin Allergy Unknown Unknown Verified 12/22/20 12:03 atorvastatin AdvReac Intermediate JOINT AND Verified 12/22/20 12:03 MUSCLE ACHES sucralfate AdvReac Intermediate Itching Verified 12/22/20 12:03 metoprolol AdvReac Mild DIZZY AND Verified 12/22/20 12:03 SYNCOPE omeprazole AdvReac Abdominal Verified 12/22/20 12:03 Pain pantoprazole AdvReac Blurry Verified 12/22/20 12:03 Vision ranitidine [From Zantac] AdvReac Diarrhea Verified 12/22/20 12:03 Physical Examination Vital Signs Vital signs: Temp Pulse Resp BP Pulse Ox 97.9 F 72 16 179/62 97 12/23/20 05:40 12/23/20 05:40 12/23/20 05:40 12/23/20 05:40 12/23/20 05:40 General physical appearance General physical exam: well developed, well nourished and no distress Eyes Eye exam: PERRL and normal ocular movement ENT ENT exam: normal pinna, normal nares, normal mucosa, no hearing loss and no congestion Head Head exam IM: Present atraumatic and normocephalic Neck Neck exam: no masses, no bruits, trachea midline, no lymphadenopathy and no venous distension Cardiovascular Cardiovascular exam IM: Present normal rate and rhythm Cardiovascular: Large, well-healed midline sternal incision Respiratory Respiratory exam: normal expansion, normal respiratory effort, clear to percussion and clear to auscultation Abdomen Abdomen: Present soft, non tender and bowel sounds Hernia: Present none Genitourinary Genitourinary (Female): Present normal external genitalia Rectum Rectum: Present normal sphincter tone, no hemorrhoids, no tenderness, no masses and no bleeding Integumentary Integumentary: Present no rash, no growths and no abnormal pigmentation Neurologic Neurologic: Present normal coordination and normal sensation Musculoskeletal Musculoskeletal: Present normal gait and normal posture Psychiatric Psychiatric: Present oriented to time, oriented to person, oriented to place, speech is normal and memory intact Results Labs Result diagrams: 12/23/20 06:07 12/23/20 06:07 Labs: Abnormal lab results 12/22/20 12/22/20 12/22/20 Range/Units 12:37 12:37 12:37 RBC 2.88 L (4.00-5.20) M/mcL Hgb 7.9 L (12.0-15.0) g/dL Hct 25.0 L (36.0-48.0) % RDW 16.4 H (11.5-14.5) % Lymph % (Auto) 11.6 L (15.0-49.0) % Lymph # (Auto) 0.66 L (1.50-4.80) K/mcL PT 15.1 H (11.9-14.5) sec APTT 39.2 H (20.0-37.0) sec Sodium 130 L (133-145) mmol/L Chloride 93 L (96-108) mmol/L Anion Gap 7.0 L (8.0-16.0) Glucose 132 H (70-105) mg/dL Calcium (8.6-10.4) mg/dL 12/22/20 12/23/20 12/23/20 Range/Units 23:21 06:07 06:07 RBC 3.21 L (4.00-5.20) M/mcL Hgb 6.7 L* 9.1 L (12.0-15.0) g/dL Hct 21.5 L 28.5 L (36.0-48.0) % RDW 15.8 H (11.5-14.5) % Lymph % (Auto) (15.0-49.0) % Lymph # (Auto) 0.83 L (1.50-4.80) K/mcL PT (11.9-14.5) sec APTT (20.0-37.0) sec Sodium (133-145) mmol/L Chloride (96-108) mmol/L Anion Gap (8.0-16.0) Glucose (70-105) mg/dL Calcium 8.3 L (8.6-10.4) mg/dL Diabetes panel 12/22/20 12/23/20 Range/Units 12:37 06:07 Sodium 130 L 134 (133-145) mmol/L Potassium 4.1 4.0 (3.3-5.1) mmol/L Chloride 93 L 96 (96-108) mmol/L Carbon Dioxide 30 26 (22-30) mmol/L BUN 16 15 (8-23) mg/dL Creatinine 0.7 0.8 (0.6-1.1) mg/dL Glucose 132 H 104 (70-105) mg/dL Calcium 8.9 8.3 L (8.6-10.4) mg/dL AST 21 (<32) U/L ALT 7 (<40) U/L Alkaline Phosphatase 82 (39-117) U/L Total Protein 6.3 (5.9-8.4) gm/dL Albumin 3.6 (3.2-5.2) gm/dL Calcium panel 12/22/20 12/23/20 Range/Units 12:37 06:07 Calcium 8.9 8.3 L (8.6-10.4) mg/dL Albumin 3.6 (3.2-5.2) gm/dL Pituitary panel 12/22/20 12/23/20 Range/Units 12:37 06:07 Sodium 130 L 134 (133-145) mmol/L Potassium 4.1 4.0 (3.3-5.1) mmol/L Chloride 93 L 96 (96-108) mmol/L Carbon Dioxide 30 26 (22-30) mmol/L BUN 16 15 (8-23) mg/dL Creatinine 0.7 0.8 (0.6-1.1) mg/dL Glucose 132 H 104 (70-105) mg/dL Calcium 8.9 8.3 L (8.6-10.4) mg/dL Adrenal panel 12/22/20 12/23/20 Range/Units 12:37 06:07 Sodium 130 L 134 (133-145) mmol/L Potassium 4.1 4.0 (3.3-5.1) mmol/L Chloride 93 L 96 (96-108) mmol/L Carbon Dioxide 30 26 (22-30) mmol/L BUN 16 15 (8-23) mg/dL Creatinine 0.7 0.8 (0.6-1.1) mg/dL Glucose 132 H 104 (70-105) mg/dL Calcium 8.9 8.3 L (8.6-10.4) mg/dL Total Bilirubin 0.5 (0.1-1.0) mg/dL AST 21 (<32) U/L ALT 7 (<40) U/L Alkaline Phosphatase 82 (39-117) U/L Total Protein 6.3 (5.9-8.4) gm/dL Albumin 3.6 (3.2-5.2) gm/dL All other labs normal. A/P Assessment and plan (1) Type 2 diabetes mellitus: Status: Acute Qualifiers: Diabetes mellitus fpc insulin use: without predatory animal exterminator use Diabetes mellitus complication status: without complication Qualified Code(s): E11.9 - Type 2 diabetes mellitus without complications (2) Acute renal failure: Status: Acute (3) Gastrointestinal bleeding: Status: Acute Narrative A/P Narrative: This is a pleasant 75-year-old female with a significant past medical history of a GI bleed from angiodysplasia of the duodenum. She presents with signs and symptoms consistent with a GI bleed. Risk, benefits, alternatives to treatment discussed with her at length. She verbalizes understanding and agrees. Plan: N.p.o., will prep her for colonoscopy and will do a EGD and colonoscopy later today. Time Spent With Patient Time: Total time spent is greater than 50% in coordination of care (as documented) at patient's floor/unit and/or counseling patient:
[2020-12-23] MEDS: DOCUSATE SODIUM 100 MG CAPSULE PO SCH ×2 (07:33→21:19)
[2020-12-23] MEDS: INSULIN LISPRO 1 UNIT/0.01 ML UNIT SQ SCH ×4 (07:39→21:19)
[2020-12-23] MEDS: CARVEDILOL 3.125 MG TABLET PO SCH ×2 (07:43→18:01)
[2020-12-23] MEDS: FUROSEMIDE 20 MG TABLET PO SCH (07:43)
[2020-12-23] MEDS: PANTOPRAZOLE 40 MG TABLET PO SCH (07:43)
[2020-12-23] MEDS ORDERED: LABETALOL 5 MG/ML ML IV PRN (07:59)
--- NOTE | 2020-12-23 08:02 | Internal Med Progress Note ---
SUBJECTIVE Subjective Patient information: Note initiated : 12/23/20 at 7:57 am Service Date, if different from initiated Date: [] Patient: Shahnaz Rutledge 75 y/o F admitted on 12/22/20 for rectal bleeding. Chief Complaint: [] Interval history: Patient presents to the ED with 3 days of bloody diarrhea and she describes bright red blood. She had a mitral valve and tricuspid valve repair in November at [place]. She has been on aspirin since that time. She was here in 2019 for GI bleed and was on aspirin at that time. She has not been on any anticoagulants for A. fib/flutter because of GI bleeding. Aspirin was held during that admission and it does not sound like it was resumed after that admission, she did see her yard warehouse worker. Aspirin was then since resumed after her procedure [place]. She denies any chest pain shortness of breath lightheadedness. She does have some nausea but no vomiting. Case discussed with Dr. Hernandez who performed EGD and colonoscopy likely. Aspirin stopped and the case was discussed with her cardiothoracic surgeon as well. She does have lower extremity edema which she says was much worse recently but Dr. Leger increased her diuretics and started improved. She says she does not tolerate compression stockings. 12/23 Patient just got back from EGD colonoscopy. Awaiting results. Little groggy, But no new complaints. Received blood last night. Constitutional Vitals: Vital Signs Temp Pulse Resp BP Pulse Ox 97.9 F 72 16 179/62 97 12/23/20 05:40 12/23/20 05:40 12/23/20 05:40 12/23/20 05:40 12/23/20 05:40 Period Temp Pulse Resp BP Sys/Wade Pulse Ox Last 24 Hr 97.0 F-98.4 F 69-79 16-27 118-179/56-110 91-100 Intake and Output 12/22/20 12/23/20 12/23/20 21:59 05:59 13:59 Intake Total 0 2070 1000 Output Total 450 1425 Balance -593 133 0642 Weight 56.699 kg Intake & Output: Intake & Output 12/22/20 12/23/20 12/23/20 21:59 05:59 13:59 Intake Total 0 0 1000 Output Total 450 1425 Balance -310 241 8277 Weight 56.699 kg Intake: IV 1000 Lactated Ringers 1,000 ml @ 84 1000 mls/hr IV .[id number] [facility] Rx#: [id number] Oral 0 Blood Product 570 Other 1500 Output: Urine/Stool Mix 200 350 Stool 250 1075 Other: Stool Size Moderate Moderate Stool Color Brown Dark Red Blood Green Stool Consistency Loose Watery Exam: General: Alert, Awake, No acute Distress Eyes/N/T: EOMI, Head/Neck: neck supple, CV: RRR, 2/6 SM, Pulm: Clear b/l, no wheezing/rhonchi/rales Abd: soft, nontender, +BS x4 Ext: no clubbing/cyanosis, 2+ edema R>L Neuro: Alert, no focal deficits, moves all extremities, Skin: warm/dry OBJ DATA Labs CBC & Chem 7: 12/23/20 06:07 12/23/20 06:07 Labs: Abnormal Lab Results 12/23/20 12/23/20 12/22/20 06:07 06:07 23:21 RBC 3.21 L Hgb 9.1 L 6.7 L* Hct 28.5 L 21.5 L RDW 15.8 H Lymph % (Auto) Lymph # (Auto) 0.83 L PT APTT Sodium Chloride Anion Gap Glucose Calcium 8.3 L 12/22/20 12/22/20 12/22/20 12:37 12:37 12:37 RBC 2.88 L Hgb 7.9 L Hct 25.0 L RDW 16.4 H Lymph % (Auto) 11.6 L Lymph # (Auto) 0.66 L PT 15.1 H APTT 39.2 H Sodium 130 L Chloride 93 L Anion Gap 7.0 L Glucose 132 H Calcium Meds: Medications Carvedilol (Carvedilol 3.125 Mg Tablet) 3.125 mg PO BIDCC [facility] Last Admin: 12/23/20 07:43 Dose: 3.125 mg Documented by: Dextrose (Dextrose 50% 50 Ml Vial) 0 ml IV UD PRN PRN Reason: Hypoglycemia Diagnostic Test (Pha) (Accu-Chek 1 Each Strip) 1 each FS ACHS [facility] Last Admin: 12/23/20 07:38 Dose: 1 each Documented by: Docusate Sodium (Docusate Sodium 100 Mg Capsule) 100 mg PO BID [facility] Last Admin: 12/23/20 07:33 Dose: Not Given Documented by: Furosemide (Furosemide 20 Mg Tablet) 20 mg PO QDAY [facility] Last Admin: 12/23/20 07:43 Dose: 20 mg Documented by: Glucose (Dextrose 31 Gm Oral.Susp) 15 gm PO PRN PRN PRN Reason: Hypoglycemia Lactated Ringer's (Lactated Ringers) 1,000 mls @ 84 mls/hr IV .[id number] [facility] Last Infusion: 12/23/20 06:37 Dose: Infused Documented by: Sodium Chloride (Sodium Chloride 0.9%) 250 mls @ 20 mls/hr IV .[id number] [facility] Stop: 12/23/20 12:44 Last Admin: 12/23/20 02:45 Dose: 20 mls/hr Documented by: Insulin Human Lispro (Insulin Lispro 1 Unit/0.01 Ml Unit) 0 unit SQ [facility]; Protocol Last Admin: 12/23/20 07:39 Dose: Not Given Documented by: Ketamine HCl (Ketamine 50 Mg/Ml Ml) 50 mg IV ONCE PRN PRN Reason: Sedation Stop: 12/23/20 15:15 Metoprolol Tartrate (Metoprolol Tartrate 5 Mg/5 Ml Vial) 5 mg IV Q2HP PRN PRN Reason: Tachyarrhythmias HR>110 Midazolam HCl (Midazolam 2 Mg/2 Ml Vial) 0 mg IV ONCE [facility] Stop: 12/23/20 15:15 Ondansetron HCl (Ondansetron 4 Mg/2 Ml Vial) 4 mg IV Q6HP PRN PRN Reason: Nausea And Vomiting Pantoprazole Sodium (Pantoprazole 40 Mg Tablet) 40 mg PO QAMAC [facility] Last Admin: 12/23/20 07:43 Dose: 40 mg Documented by: Propofol (Propofol 200 Mg/20 Ml Vial) 0 mg IV UD [facility] Stop: 12/23/20 15:15 Senna (Sennosides 1 Tablet) 2 tab PO HS [facility] Last Admin: 12/22/20 21:28 Dose: Not Given Documented by: Sodium Chloride (0.9 % Sodium Chloride 10 Ml Syringe) 10 ml IV Q8 [facility] Last Admin: 12/23/20 06:35 Dose: Not Given Documented by: A/P Narrative A/P Narrative: A: *GI bleed, BRBPR (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 ASA was restarted after this last cardiothoracic procedure *Hyponatremia, chronic: *HTN/HLD: *DM: *Peripheral edema: on lasix P: -Dr. Hernandez for endoscopy -monitor H&H -ASA held, hold until outpt follow-up with cardio or depending on endoscopy findings -cont BB/lasix -SSI - -ppx: SCD Time Spent With Patient Time: Total time spent is greater than 50% in coordination of care (as docum ented) at patient's floor/unit and/or counseling patient: QUALITY VTE Deep Vein Thrombosis/Pulmonary Embolism Present on Admission: No
--- NOTE | 2020-12-23 08:02 | Internal Med Progress Note ---
SUBJECTIVE Subjective Patient information: Note initiated : 12/23/20 at 8:02 am Service Date, if different from initiated Date: [] Patient: Shahnaz Rutledge 75 y/o F admitted on 12/22/20 for rectal bleeding. Chief Complaint: [] Interval history: Patient presents to the ED with 3 days of bloody diarrhea and she describes bright red blood. She had a mitral valve and tricuspid valve repair in November at [place]. She has been on aspirin since that time. She was here in 2019 for GI bleed and was on aspirin at that time. She has not been on any anticoagulants for A. fib/flutter because of GI bleeding. Aspirin was held during that admission and it does not sound like it was resumed after that admission, she did see her housekeeper caregiver. Aspirin was then since resumed after her procedure [place]. She denies any chest pain shortness of breath lightheadedness. She does have some nausea but no vomiting. Case discussed with Dr. Hernandez who performed EGD and colonoscopy likely. Aspirin stopped and the case was discussed with her cardiothoracic surgeon as well. She does have lower extremity edema which she says was much worse recently but Dr. Leger increased her diuretics and started improved. She says she does not tolerate compression stockings. 12/23 Constitutional Vitals: Vital Signs Temp Pulse Resp BP Pulse Ox 97.9 F 72 16 179/62 97 12/23/20 05:40 12/23/20 05:40 12/23/20 05:40 12/23/20 05:40 12/23/20 05:40 Period Temp Pulse Resp BP Sys/Wade Pulse Ox Last 24 Hr 97.0 F-98.4 F 69-79 16-27 118-179/56-110 91-100 Intake and Output 12/22/20 12/23/20 12/23/20 21:59 05:59 13:59 Intake Total 0 2070 1000 Output Total 450 1425 Balance -745 731 7390 Weight 56.699 kg Intake & Output: Intake & Output 12/22/20 12/23/20 12/23/20 21:59 05:59 13:59 Intake Total 0 2070 1000 Output Total 450 1425 Balance -434 396 1362 Weight 56.699 kg Intake: IV 1000 Lactated Ringers 1,000 ml @ 84 1000 mls/hr IV .[id number] [facility] Rx#: [id number] Oral 0 Blood Product 570 Other 1500 Output: Urine/Stool Mix 200 350 Stool 250 1075 Other: Stool Size Moderate Moderate Stool Color Brown Dark Red Blood Green Stool Consistency Loose Watery Exam: General: Alert, Awake, No acute Distress Eyes/N/T: EOMI, Head/Neck: neck supple, CV: RRR, 2/6 SM, Pulm: Clear b/l, no wheezing/rhonchi/rales Abd: soft, nontender, +BS x4 Ext: no clubbing/cyanosis, 2-3+ edema Neuro: Alert, no focal deficits, moves all extremities, Skin: warm/dry OBJ DATA Labs CBC & Chem 7: 12/23/20 06:07 12/23/20 06:07 Labs: Abnormal Lab Results 12/23/20 12/23/20 12/22/20 06:07 06:07 23:21 RBC 3.21 L Hgb 9.1 L 6.7 L* Hct 28.5 L 21.5 L RDW 15.8 H Lymph % (Auto) Lymph # (Auto) 0.83 L PT APTT Sodium Chloride Anion Gap Glucose Calcium 8.3 L 12/22/20 12/22/20 12/22/20 12:37 12:37 12:37 RBC 2.88 L Hgb 7.9 L Hct 25.0 L RDW 16.4 H Lymph % (Auto) 11.6 L Lymph # (Auto) 0.66 L PT 15.1 H APTT 39.2 H Sodium 130 L Chloride 93 L Anion Gap 7.0 L Glucose 132 H Calcium Meds: Medications Carvedilol ([facility] 3.125 Mg [facility]) [facility] Last Admin: 12/23/20 07:43 Dose: 3.125 mg Documented by: Dextrose (Dextrose 50% 50 Ml Vial) 0 ml IV UD PRN PRN Reason: Hypoglycemia Diagnostic Test (Pha) (Accu-Chek 1 Each Strip) 1 each FS ACHS [facility] Last Admin: 12/23/20 07:38 Dose: 1 each Documented by: Docusate Sodium (Docusate Sodium 100 Mg Capsule) 100 mg PO BID [facility] Last Admin: 12/23/20 07:33 Dose: Not Given Documented by: Furosemide (Furosemide 20 Mg Tablet) 20 mg PO QDAY [facility] Last Admin: 12/23/20 07:43 Dose: 20 mg Documented by: Glucose (Dextrose 31 Gm Oral.Susp) 15 gm PO PRN PRN PRN Reason: Hypoglycemia Hydralazine HCl (Hydralazine 20 Mg/Ml Vial) 0 mg IV Q2HP PRN PRN Reason: Hypertension Lactated Ringer's (Lactated Ringers) 1,000 mls @ 84 mls/hr IV .[id number] [facility] Last Infusion: 12/23/20 06:37 Dose: Infused Documented by: Sodium Chloride (Sodium Chloride 0.9%) 250 mls @ 20 mls/hr IV .[id number] [facility] Stop: 12/23/20 12:44 Last Admin: 12/23/20 02:45 Dose: 20 mls/hr Documented by: Insulin Human Lispro (Insulin Lispro 1 Unit/0.01 Ml Unit) 0 unit SQ [facility]; Protocol Last Admin: 12/23/20 07:39 Dose: Not Given Documented by: Ketamine HCl (Ketamine 50 Mg/Ml Ml) 50 mg IV ONCE PRN PRN Reason: Sedation Stop: 12/23/20 15:15 Labetalol HCl (Labetalol 5 Mg/Ml Ml) 0 mg IV Q2HP PRN PRN Reason: Hypertension Metoprolol Tartrate (Metoprolol Tartrate 5 Mg/5 Ml Vial) 5 mg IV Q2HP PRN PRN Reason: Tachyarrhythmias HR>110 Midazolam HCl (Midazolam 2 Mg/2 Ml Vial) 0 mg IV ONCE [facility] Stop: 12/23/20 15:15 Ondansetron HCl (Ondansetron 4 Mg/2 Ml Vial) 4 mg IV Q6HP PRN PRN Reason: Nausea And Vomiting Pantoprazole Sodium (Pantoprazole 40 Mg Tablet) 40 mg PO QAMAC [facility] Last Admin: 12/23/20 07:43 Dose: 40 mg Documented by: Propofol (Propofol 200 Mg/20 Ml Vial) 0 mg IV UD [facility] Stop: 12/23/20 15:15 Senna (Sennosides 1 Tablet) 2 tab PO HS [facility] Last Admin: 12/22/20 21:28 Dose: Not Given Documented by: Sodium Chloride (0.9 % Sodium Chloride 10 Ml Syringe) 10 ml IV Q8 [facility] Last Admin: 12/23/20 06:35 Dose: Not Given Documented by: A/P Narrative A/P Narrative: A: *GI bleed, BRBPR (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 ASA was restarted after this last cardiothoracic procedure *Hyponatremia, chronic: *HTN/HLD: *DM: *Peripheral edema: on lasix P: -Dr. Hernandez for endoscopy -monitor H&H -ASA held, hold until outpt follow-up with cardio or depending on endoscopy findings -cont BB/lasix -SSI - -ppx: SCD Time Spent With Patient Time: Total time spent is greater than 50% in coordination of care (as documented) at patient's floor/unit and/or counseling patient: QUALITY VTE Deep Vein Thrombosis/Pulmonary Embolism Present on Admission: No
[2020-12-23] MEDS ORDERED: HEPARIN SODIUM,PORCINE/PF 500 UNIT/5 ML SYRINGE IV ONE (09:27)
--- NOTE | 2020-12-23 10:27 | Colonoscopy Procedure Note ---
Colonoscopy Procedure Notes Procedure Information Patient information: Note initiated : 12/23/20 at 10:25 am Service Date: 12/22/20 Patient: Shahnaz Rutledge 75 y/o F admitted on 12/22/20 for rectal bleeding. Pre-op diagnosis general: GI bleed Post-op diagnosis general: Same Procedure: Colonoscopy Procedure narrative: After risk benefits and alternatives to the procedure were discussed with the patient at length she verbalized understanding and desire to continue with the procedure. Patient was taken to endoscopy and placed supine on the endoscopy table. Conscious sedation was administered throughout the case consisting of 2 mg of Versed and 130 mcg of propofol. Digital rectal exam was performed which was within normal limits. An adult colonoscope was advanced under direct vision to the cecum which was identified by the scammon bay's foot, the appendiceal orifice and opening to the terminal ileum. Full exam upon removal of scope was significant for scattered diverticulosis throughout the colon to the descending colon, no evidence of active bleed, adequate prep however large amount of blood and clot.. Retroflexion in the rectum was within normal limits. Assessment: Diverticulosis, evidence of recent bleed without evidence of active bleed Image Colon: 1. Full screening colonoscopy, extensive diverticulosis
--- NOTE | 2020-12-23 10:29 | EGD Procedure Note ---
EGD Procedure Notes Procedure Information Patient information: Note initiated : 12/23/20 at 10:27 am Service Date: 12/22/20 Patient: Shahnaz Rutledge 75 y/o F admitted on 12/22/20 for rectal bleeding. Pre-op diagnosis general: GI bleed Post-Op Diagnosis general: Same Procedure: Esophogogastroduodenoscopy Procedure Narrative: After risk benefits and alternatives to the procedure were discussed with the patient at length she verbalized understanding and desire to continue with the procedure. Patient was taken to endoscopy. Surgical timeout was taken to verify patient and procedure being performed sedation was administered with 2 mg of Versed and 130 mcg of propofol, this includes both procedures and is also documented the same in colonoscopy report. An adult gastroscope was entered and advanced under direct vision into the second portion of the duodenum. The antrum was fully inspected, the scope was retroflexed in the stomach. Full examination revealed a healed ulcer in the first portion of the duodenum without evidence of active bleed, otherwise normal. The GE junction was at 30 cm and the esophagus was normal on full exam. Patient tolerated procedure well. Assessment: Evidence of healed duodenal ulcer, no evidence of active GI bleed Image EGD: 1. Retroflexion within normal limits 2. Exam to second portion of duodenum 3. Ulcer with healed base without evidence of active bleed
[2020-12-23] MEDS: SENNOSIDES 1 TABLET PO SCH (21:20)
[2020-12-24] MEDS: LACTATED RINGERS 1,000 ML IV SCH ×3 (00:45→14:36)
[2020-12-24] MEDS: hydrALAZINE 20 MG/ML VIAL IV PRN ×2 (00:54→05:41)
[2020-12-24] MEDS: 0.9 % SODIUM CHLORIDE 10 ML SYRINGE IV SCH ×2 (06:00→12:51)
[2020-12-24 06:50] LABS: Hematocrit 24.5 % (36.0-48.0)
[2020-12-24] MEDS: INSULIN LISPRO 1 UNIT/0.01 ML UNIT SQ SCH ×2 (07:30→11:45)
[2020-12-24] MEDS ORDERED: ACETAMINOPHEN 325 MG TABLET PO PRN (08:33)
[2020-12-24] MEDS ORDERED: BENZOCAINE/MENTHOL 1 LOZENGE PO PRN (08:35)
--- NOTE | 2020-12-24 08:39 | Internal Med Progress Note ---
SUBJECTIVE Subjective Patient information: Note initiated : 12/24/20 at 8:37 am Service Date, if different from initiated Date: [] Patient: Shahnaz Rutledge 75 y/o F admitted on 12/22/20 for rectal bleeding. Chief Complaint: [] Interval history: Patient presents to the ED with 3 days of bloody diarrhea and she describes bright red blood. She had a mitral valve and tricuspid valve repair in November at [place]. She has been on aspirin since that time. She was here in 2019 for GI bleed and was on aspirin at that time. She has not been on any anticoagulants for A. fib/flutter because of GI bleeding. Aspirin was held during that admission and it does not sound like it was resumed after that admission, she did see her journal box inspector. Aspirin was then since resumed after her procedure [place]. She denies any chest pain shortness of breath lightheadedness. She does have some nausea but no vomiting. Case discussed with Dr. Hernandez who performed EGD and colonoscopy likely. Aspirin stopped and the case was discussed with her cardiothoracic surgeon as well. She does have lower extremity edema which she says was much worse recently but Dr. Leger increased her diuretics and started improved. She says she does not tolerate compression stockings. 12/23 Patient just got back from EGD colonoscopy. Awaiting results. Little groggy, But no new complaints. Received blood last night. 12/24 patient complains of generalized pain including headache. EGD with clean base ulcer and colonoscopy with diverticulosis. Review of Systems: denies fever/chills/nausea/vomiting/chest or abdominal pain/cough/dyspnea/diarrhea. Otherwise see above. Constitutional Vitals: Vital Signs Temp Pulse Resp BP Pulse Ox 97.8 F 73 24 H 157/67 96 12/24/20 03:47 12/24/20 03:47 12/24/20 03:47 12/24/20 03:47 12/24/20 05:54 Period Temp Pulse Resp BP Sys/Wade Pulse Ox Last 24 Hr 97.8 F-98.9 F 70-77 17-32 77-163/50-72 92-100 Intake and Output 12/23/20 12/24/20 12/24/20 21:59 05:59 13:59 Intake Total 350 300 Output Total 400 450 Balance -50 -150 Weight 56.926 kg Intake & Output: Intake & Output 12/23/20 12/24/20 12/24/20 21:59 05:59 13:59 Intake Total 350 300 Output Total 400 450 Balance -50 -150 Weight 56.926 kg Intake: IV 250 Sodium Chloride 0.9% 250 ml @ 250 20 mls/hr IV .[id number] [facility] Rx#: [id number] Oral 100 300 Output: Void Amount 450 Stool 400 Other: Stool Size Small Stool Color Black Dark Red Blood Exam: General: Alert, Awake, No acute Distress Eyes/N/T: EOMI, Head/Neck: neck supple, CV: RRR, 2/6 SM, Pulm: Clear b/l, no wheezing/rhonchi/rales Abd: soft, nontender, +BS x4 Ext: no clubbing/cyanosis, 2+ edema R>L Neuro: Alert, no focal deficits, moves all extremities, Skin: warm/dry OBJ DATA Labs CBC & Chem 7: 12/24/20 05:33 12/23/20 06:07 Labs: Abnormal Lab Results 12/24/20 12/23/20 12/23/20 05:33 06:07 06:07 RBC 3.21 L Hgb 8.0 L 9.1 L Hct 24.5 L 28.5 L RDW 15.8 H Lymph % (Auto) Lymph # (Auto) 0.83 L PT APTT Sodium Chloride Anion Gap Glucose Calcium 8.3 L 12/22/20 12/22/20 12/22/20 23:21 12:37 12:37 RBC Hgb 6.7 L* Hct 21.5 L RDW Lymph % (Auto) Lymph # (Auto) PT 15.1 H APTT 39.2 H Sodium 130 L Chloride 93 L Anion Gap 7.0 L Glucose 132 H Calcium 12/22/20 12:37 RBC 2.88 L Hgb 7.9 L Hct 25.0 L RDW 16.4 H Lymph % (Auto) 11.6 L Lymph # (Auto) 0.66 L PT APTT Sodium Chloride Anion Gap Glucose Calcium Meds: Medications Acetaminophen (Acetaminophen 325 Mg Tablet) 325 - 650 mg PO Q6HP PRN; Protocol PRN Reason: Per Pain Protocol Carvedilol (Carvedilol 3.125 Mg Tablet) 3.125 mg PO BIDCC [facility] Last Admin: 12/23/20 18:01 Dose: 3.125 mg Documented by: Dextrose (Dextrose 50% 50 Ml Vial) 0 ml IV UD PRN PRN Reason: Hypoglycemia Diagnostic Test (Pha) (Accu-Chek 1 Each Strip) 1 each FS [facility] Last Admin: 12/24/20 07:27 Dose: 1 each Documented by: Docusate Sodium (Docusate Sodium 100 Mg Capsule) 100 mg PO BID [facility] Last Admin: 12/23/20 21:19 Dose: Not Given Documented by: Furosemide (Furosemide 20 Mg Tablet) 20 mg PO QDAY [facility] Last Admin: 12/23/20 07:43 Dose: 20 mg Documented by: Glucose (Dextrose 31 Gm Oral.Susp) 15 gm PO PRN PRN PRN Reason: Hypoglycemia Hydralazine HCl (Hydralazine 20 Mg/Ml Vial) 0 mg IV Q2HP PRN PRN Reason: Hypertension Last Admin: 12/24/20 05:41 Dose: 10 mg Documented by: Lactated Ringer's (Lactated Ringers) 1,000 mls @ 84 mls/hr IV .[id number] [facility] Last Admin: 12/24/20 04:00 Dose: Not Given Documented by: Insulin Human Lispro (Insulin Lispro 1 Unit/0.01 Ml Unit) 0 unit SQ [facility]; Protocol Last Admin: 12/24/20 07:30 Dose: Not Given Documented by: Labetalol HCl (Labetalol 5 Mg/Ml Ml) 0 mg IV Q2HP PRN PRN Reason: Hypertension Metoprolol Tartrate (Metoprolol Tartrate 5 Mg/5 Ml Vial) 5 mg IV Q2HP PRN PRN Reason: Tachyarrhythmias HR>110 Ondansetron HCl (Ondansetron 4 Mg/2 Ml Vial) 4 mg IV Q6HP PRN PRN Reason: Nausea And Vomiting Pantoprazole Sodium (Pantoprazole 40 Mg Tablet) 40 mg PO QAMAC [facility] Last Admin: 12/23/20 07:43 Dose: 40 mg Documented by: Senna (Sennosides 1 Tablet) 2 tab PO HS [facility] Last Admin: 12/23/20 21:20 Dose: Not Given Documented by: Sodium Chloride (0.9 % Sodium Chloride 10 Ml Syringe) 10 ml IV Q8 [facility] Last Admin: 12/24/20 06:00 Dose: Not Given Documented by: Throat Lozenges (Benzocaine/Menthol 1 Lozenge) 1 lozenge PO PRN PRN PRN Reason: Sore Throat A/P Narrative A/P Narrative: A: *GI bleed, BRBPR (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 ASA was restarted after this last cardiothoracic procedure *Hyponatremia, chronic: *HTN/HLD: *DM: *Peripheral edema: on lasix P: -Dr. Hernandez for bleed -recommend holding ASA until seen by cardiology Time Spent With Patient Time: Total time spent is greater than 50% in coordination of care (as documented) at patient's floor/unit and/or counseling patient: QUALITY VTE Deep Vein Thrombosis/Pulmonary Embolism Present on Admission: No
[2020-12-24] MEDS ORDERED: traMADol 50 MG TABLET PO PRN (08:59)
[2020-12-24] MEDS: CARVEDILOL 3.125 MG TABLET PO SCH (09:00)
[2020-12-24] MEDS: PANTOPRAZOLE 40 MG TABLET PO SCH (09:00)
[2020-12-24] MEDS: DOCUSATE SODIUM 100 MG CAPSULE PO SCH (09:01)
[2020-12-24] MEDS: FUROSEMIDE 20 MG TABLET PO SCH (09:01)
--- NOTE | 2020-12-24 12:42 | General Surgery Progress Note ---
SUBJECTIVE Subjective Patient information: Note initiated : 12/24/20 at 12:41 pm Service Date, if different from initiated Date: [] Patient: Shahnaz Rutledge 75 y/o F admitted on 12/22/20 for rectal bleeding. Chief Complaint: [] Interval history: No further bleeding overnight, patient does report a headache and generalized pain which has been consistent since or heart surgery. Constitutional Vitals: Vital Signs Temp Pulse Resp BP Pulse Ox 97.5 F 73 20 132/63 98 12/24/20 08:00 12/24/20 08:00 12/24/20 08:00 12/24/20 08:00 12/24/20 08:00 Period Temp Pulse Resp BP Sys/Wade Pulse Ox Last 24 Hr 97.5 F-98.9 F 73-77 20-24 130-163/57-72 94-98 Intake and Output 12/23/20 12/24/20 12/24/20 21:59 05:59 13:59 Intake Total 054 679 5292 Output Total 400 450 350 Balance -50 -150 650 Weight 125 lb 8 oz Intake & Output: Intake & Output 12/23/20 12/24/20 12/24/20 21:59 05:59 13:59 Intake Total 936 370 4077 Output Total 400 450 350 Balance -50 -150 650 Weight 125 lb 8 oz Intake: IV 250 1000 Sodium Chloride 0.9% 250 ml @ 250 20 mls/hr IV .[id number] [facility] Rx#: [id number] Lactated Ringers 1,000 ml @ 84 1000 mls/hr IV .[id number] [facility] Rx#: [id number] Oral 100 300 Output: Void Amount 450 350 Stool 400 Other: Urine Color Dark Yellow Urine Odor Normal Stool Size Small Stool Color Black Dark Red Blood General appearance: cooperative and no acute distress GI/Abdominal GI/Abdominal exam: Present soft; Absent distended and tenderness A/P Narrative A/P Narrative: Patient mated with a GI bleed, no further evidence of bleed, no active bleed on EGD or colonoscopy. Patient is clear for discharge, follow-up with me in clinic in 2 to 3 weeks to schedule repeat outpatient EGD to follow-up duodenal ulcer. Time Spent With Patient Time: Total time spent is greater than 50% in coordination of care (as documented) at patient's floor/unit and/or counseling patient:
--- NOTE | 2020-12-24 12:46 | Discharge Summary ---
Discharge Provider Provider Patient information: Note initiated : 12/24/20 at 12:45 pm Service Date, if different from initiated Date: [] Patient: Shahnaz Rutledge 75 y/o F admitted on 12/22/20 for rectal bleeding. Chief Complaint: [] Date of admission: 12/22/20 16:37 Discharge date: 12/24/20 Primary care physician: Sandra Leger Consults: 12/22/20 Consult to Physician [CONS] Stat Comment: Consulting Provider: Casey Hernandez Reason For Exam: Physician to Consult 12/22/20 15:40 Consult to Physician [CONS] Routine Comment: Managment of chronic medical problems Consulting Provider: Emanuel Manning Reason For Exam: Physician to Consult COURSE Hospital Course Hospital course: This is a pleasant 75-year-old female 3 weeks status post open heart surgery who presented with a GI bleed. Patient was admitted, received 2 units of blood however after transfusion her H&H became stable. She underwent an EGD which was significant for a healed duodenal ulcer without obvious bleed, colonoscopy with diverticulosis without evidence of active bleed. Discharge diagnosis: GI bleed Time Spent with Patient Time attestation: Total time spent providing and/or coordinating discharge services: Physical Examination Vital Signs Vital signs: Temp Pulse Resp BP Pulse Ox 97.5 F 73 20 132/63 98 12/24/20 08:00 12/24/20 08:00 12/24/20 08:00 12/24/20 08:00 12/24/20 08:00 Discharge Plan Patient/Caregiver Discharge Instructions Activity: increase activity as tolerated Diet: Regular Diet Activity Restrictions/Additional Instructions: Follow-up with the cardiothoracic surgeon, hold aspirin until seen by CT surgery. Follow-up with me in clinic in 2 to 3 weeks. Patient will need repeat outpatient EGD to follow-up duodenal ulcer healing. Prescriptions: New ondansetron HCl (PF) 4 mg/2 mL Solution 4 mg IV Q6HP PRN (Reason: Nausea And Vomiting) Qty: 5 RF: 0 Continued rosuvastatin 10 mg tablet 5 mg PO 3XW RF: 0 omega-3 fatty acids [Fish Oil Concentrate] 1,000 mg capsule 1,000 mg PO BID RF: 0 furosemide 20 mg tablet 40 mg PO AC RF: 0 metformin 500 mg tablet 500 mg PO BID RF: 0 cholecalciferol (vitamin D3) 25 mcg (1,000 unit) capsule 25 mcg PO .QOD RF: 0 gemfibrozil 600 mg tablet 600 mg PO BID 30 Days Qty: 60 RF: 0 cefuroxime axetil 250 mg tablet 250 mg PO Q12H RF: 0 multivitamin,[id number] [Complete Multivitamin] tablet 1 tab PO QDAY RF: 0 ascorbic acid (vitamin C) 500 mg tablet 1,000 mg PO BID RF: 0 magnesium oxide 500 mg tablet 250 mg PO .6 DAYS A WEEK RF: 0 iron ps [id number] acid 1 EACH capsule 1 each PO BID RF: 0 ipratropium bromide 21 mcg (0.03 %) [place],Non-Aerosol 2 spray INTRANASAL TID PRN (Reason: Runny Nose) RF: 0 furosemide 20 mg Tablet 20 mg PO QDAY RF: 0 sodium bicarbonate 650 mg Tablet 650 mg PO BID RF: 0 acetaminophen 500 mg Tablet 1,000 mg PO Q6H RF: 0 carvedilol 3.125 mg Tablet 3.125 mg PO BID RF: 0 tramadol 50 mg Tablet 50 mg PO Q6H PRN (Reason: Pain) RF: 0 Discontinued aspirin 81 mg Tablet 81 mg PO QDAY RF: 0 Follow Up Plan Follow up with: Sandra Leger MD [Primary Care Provider] - Casey Hernandez MD [Physician] - Patient Disposition: Home, Self-Care Prognosis: Good Discharge Orders: Discharge Order (Routine); Ordered 12/24/20 Ordered By: Casey Hernandez Pending Pending Pending: Resuscitation Status Full Code Diet Regular Diet Start WedDec 23 141 Acetaminophen (Acetaminophen 325 Mg Tablet) 325 - 650 mg PO Q6HP PRN; Protocol PRN Reason: Per Pain Protocol Last Admin: 12/24/20 08:40 Dose: 650 mg Documented by: [email or web address] Carvedilol ([facility]ilol 3.125 Mg Tablet) [facility] Last Admin: 12/24/20 09:00 Dose: 3.125 mg Documented by: Admin: 12/23/20 18:01 Dose: 3.125 mg Documented by: Admin: 12/23/20 07:43 Dose: 3.125 mg Documented by: Admin: 12/22/20 18:41 Dose: 3.125 mg Documented by: JLANNOYE Diagnostic Test (Pha) (Accu-Chek 1 Each Strip) 1 each FS ACHS [facility] Last Admin: 12/24/20 11:42 Dose: 1 each Documented by: Admin: 12/24/20 07:27 Dose: 1 each Documented by: Admin: 12/23/20 21:19 Dose: 1 each Documented by: Admin: 12/23/20 16:55 Dose: 1 each Documented by: Admin: 12/23/20 10:52 Dose: 1 each Documented by: Admin: 12/23/20 07:38 Dose: 1 each Documented by: Admin: 12/22/20 21:29 Dose: Not Given Documented by: Admin: 12/22/20 18:42 Dose: 1 each Documented by: ESHA Docusate Sodium (Docusate Sodium 100 Mg Capsule) 100 mg PO BID [facility] Last Admin: 12/24/20 09:01 Dose: Not Given Documented by: Admin: 12/23/20 21:19 Dose: Not Given Documented by: Admin: 12/23/20 07:33 Dose: Not Given Documented by: Admin: 12/22/20 21:28 Dose: 100 mg Documented by: FRED Furosemide (Furosemide 20 Mg Tablet) 20 mg PO QDAY [facility] Last Admin: 12/24/20 09:01 Dose: 20 mg Documented by: Admin: 12/23/20 07:43 Dose: 20 mg Documented by: CARLOS Hydralazine HCl (Hydralazine 20 Mg/Ml Vial) 0 mg IV Q2HP PRN PRN Reason: Hypertension Last Admin: 12/24/20 05:41 Dose: 10 mg Documented by: Admin: 12/24/20 00:54 Dose: 10 mg Documented by: PAZ Lactated Ringer's (Lactated Ringers) 1,000 mls @ 84 mls/hr IV .[id number] [facility] Last Infusion: 12/24/20 12:35 Dose: 0 mls/hr Documented by: Admin: 12/24/20 04:00 Dose: Not Given Documented by: Admin: 12/24/20 00:45 Dose: 84 mls/hr Documented by: Admin: 12/23/20 14:07 Dose: Not Given Documented by: Infusion: 12/23/20 12:46 Dose: 84 mls/hr Documented by: Infusion: 12/23/20 06:37 Dose: 0 mls/hr Documented by: Admin: 12/23/20 06:35 Dose: Not Given Documented by: Admin: 12/22/20 18:45 Dose: 84 mls/hr Documented by: ESHA Insulin Human Lispro (Insulin Lispro 1 Unit/0.01 Ml Unit) 0 unit SQ ACHS [facility]; Protocol Last Admin: 12/24/20 11:45 Dose: Not Given Documented by: Admin: 12/24/20 07:30 Dose: Not Given Documented by: Admin: 12/23/20 21:19 Dose: Not Given Documented by: Admin: 12/23/20 16:57 Dose: Not Given Documented by: Admin: 12/23/20 10:55 Dose: Not Given Documented by: Admin: 12/23/20 07:39 Dose: Not Given Documented by: Admin: 12/22/20 21:28 Dose: Not Given Documented by: Admin: 12/22/20 18:58 Dose: Not Given Documented by: ESHA Ondansetron HCl (Ondansetron 4 Mg/2 Ml Vial) 4 mg IV Q6HP PRN PRN Reason: Nausea And Vomiting Last Admin: 12/24/20 11:46 Dose: 4 mg Documented by: CARLOS Pantoprazole Sodium (Pantoprazole 40 Mg Tablet) [facility] Last Admin: 12/24/20 09:00 Dose: 40 mg Documented by: Admin: 12/23/20 07:43 Dose: 40 mg Documented by: CARLOS Senna (Sennosides 1 Tablet) 2 tab PO [facility] Last Admin: 12/23/20 21:20 Dose: Not Given Documented by: Admin: 12/22/20 21:28 Dose: Not Given Documented by: FRED Sodium Chloride (0.9 % Sodium Chloride 10 Ml Syringe) 10 ml IV Q8 [facility] Last Admin: 12/24/20 06:00 Dose: Not Given Documented by: Admin: 12/23/20 21:20 Dose: Not Given Documented by: Admin: 12/23/20 12:12 Dose: Not Given Documented by: Admin: 12/23/20 06:35 Dose: Not Given Documented by: Admin: 12/22/20 21:15 Dose: Not Given Documented by: FRED Tramadol HCl (Tramadol 50 Mg Tablet) 50 mg PO Q6HP PRN; Protocol PRN Reason: Pain Last Admin: 12/24/20 09:10 Dose: 50 mg Documented by: CARLOS Shift Summary 12/24/20 04:04 Shift Summary by Judie Zavala Pt admitted for GI bleed. Colonoscopy & EGD done 12/23 - only found a small, healed ulcer. She has a-fib and had pacemaker implanted recently; chest wounds still healing. Up w/SBA, FWW to BSC. Gets SOB w/activity. Voiding well. Had some blood clots from rectum early in the shift, but no longer having bloody BM by end of shift. Has had a headache tonight, but did subside after PRN meds for increased BP. Plan is to d/c home w/spouse. Initialized on 12/24/20 04:04 - END OF NOTE
[2020-12-24] MEDS ORDERED: ONDANSETRON 4 MG ODT TABLET SL PRN (15:15)
== END 2020-12-24 15:45 | disposition home or self-care (01) | DRG 378 ==
LOC: ED 12:00 → MEDSUR 16:37
PROVIDERS: ADMIT Internal Medicine; ATTEND Surgery